=== PATIENT | male | born 1935 | race African-American/Black ===

== ENCOUNTER 2016-08-18 17:28 | Inpatient (IN) | payer MEDICARE, OTHER ==
[~2016-08-18] VITALS: Ht 175.3 cm; Wt 64.3 kg
[~2016-08-18 17:28] MED LIST: AMLO10TA2 PO; ASPI-110 PO; DULC10SU3 RECTAL; LEXA10TA PO; LORA-392 PO; MILK2400 PO; MULT1TAB84 PO; PRIN10TA PO; PROC10TA PO; QUET1TAB7 PO; ULTR50TA5 PO
[2016-08-18 17:40] VITALS: BP 175/93; PULSE 130; RESP 18; TEMP 102.8; O2SAT 95
[2016-08-18] MEDS ORDERED: SODIUM CHLORIDE 0.9% FLUSH 5 ML FLUSH IV FLUSH PRN (17:45)
[2016-08-18 18:13] VITALS: BP 175/93; PULSE 140; RESP 16; TEMP 102.3; O2SAT 97
[2016-08-18] MEDS ORDERED: ONDANSETRON HCL 4 MG/2 ML VIAL IV PUSH ONE (18:15)
[2016-08-18] MEDS ORDERED: ACETAMINOPHEN 650 MG SUPP RECTAL ONE (18:15)
[2016-08-18] MEDS ORDERED: SODIUM CHLOR 0.9% 1000 ML INJ 1,000 ML IV ONE ×2 (18:15→19:15)
[2016-08-18] MEDS ORDERED: PIPERACIL-TAZO 4.5 GM PREMIX 100 ML IV STA (18:33)
[2016-08-18] MEDS ORDERED: VANCOMYCIN INJ 1,000 MG in SODIUM CHLOR 0.9% 250 ML INJ 250 ML IV STA (18:33)
[2016-08-18 18:42] LABS: AUTOMATED NEUTROPHIL # 7.7 TH/MM3 (1.8-7.7); BASOPHIL % 0.2 % (0.0-2.0); EOSINOPHIL % 0.4 % (0.0-4.0); HEMO FLAGS DIFF FINAL; LYMPH % 14.4 % (9.0-44.0); LYMPHOCYTE # 1.3 TH/MM3 (1.0-4.8); MEAN CELL VOLUME 82.4 FL (80.0-100.0); MEAN CORPUSCULAR HEMOGLOBIN 26.5 PG (27.0-34.0); MEAN CORPUSCULAR HGB CONC 32.1 % (32.0-36.0); PLATELET COUNT 183 TH/MM3 (150-450); RED BLOOD COUNT 4.73 MIL/MM3 (4.50-5.90); RED CELL DISTRIBUTION WIDTH 14.9 % (11.6-17.2); WHITE BLOOD COUNT 9.2 TH/MM3 (4.0-11.0)
--- NOTE | 2016-08-18 18:47 | RADRPT ---
EXAM DATE/TIME: 08/18/2016 18:26 [facility] COMPARISON: No previous studies available for comparison. INDICATIONS : Syncope MEDICAL HISTORY : Hypertension. SURGICAL HISTORY : Appendectomy. ENCOUNTER: Initial ACUITY: 1 day PAIN SCORE: Non-responsive. LOCATION: Bilateral chest FINDINGS: There is left base consolidation and probably a newly small left effusion. Right lung reasonably jc r. No pneumothorax. Heart size stable, upper limits normal. CONCLUSION: Consolidation and effusion at the left lung base. Donta Argueta MD on August 18, 2016 at 18:44 Board Certified Radiologist. This report was verified electronically.
[2016-08-18 18:51] LABS: APTT (PATIENT) 23.3 SEC (24.3-30.1); INTERNATIONAL NORMALIZED RATIO 1.1 RATIO; PROTHROMBIN TIME - PATIENT 12.1 SEC (9.8-11.6)
[2016-08-18 19:04] LABS: ALT (GPT) 15 U/L (12-78); ANION GAP 10 MEQ/L (5-15); AST (GOT) 24 U/L (15-37); BICARBONATE 23.6 MEQ/L (21.0-32.0); BLOOD UREA NITROGEN 20 MG/DL (7-18); CHLORIDE 106 MEQ/L (98-107); GLOMERULAR FILTRATION RATE 56 ML/MIN (>89); SODIUM (NA) 140 MEQ/L (136-145)
[2016-08-18 19:08] LABS: ALKALINE PHOSPHATASE 96 U/L (45-117); CREATINE KINASE 273 U/L (39-308); TOTAL BILIRUBIN ADULT 0.7 MG/DL (0.2-1.0)
--- NOTE | 2016-08-18 19:13 | PD ---
HPI Chief Complaint: Fever Time Seen by Provider: 18:54 Travel History International Travel<30 days: No Contact w/Intl Traveler<30days: No Traveled to known affect area: No History of Present Illness HPI 81yo M with PMH of end stage dementia, CAD, depression was brought in by [facility] for a few episodes of NBNB vomiting. Pt was found to be febrile and tachycardic here in the ED. Pt is AAOx1 and at baseline mental status as per sister. Pt is pleasant and not complaining of anything but unable to get good history due to his dementia. PFSH Past Medical History Arthritis: Yes Asthma: No Anxiety: Yes Depression: Yes Heart Rhythm Problems: No Cardiovascular Problems: No High Cholesterol: No Chest Pain: No Congestive Heart Failure: No COPD: No Cerebrovascular Accident: No Dementia: Yes Gastrointestinal Disorders: Yes GERD: No Genitourinary: No Headaches: No Hepatitis: No Hiatal Hernia: No Hypertension: Yes Kidney Stones: No Musculoskeletal: Yes Neurologic: No Reproductive: No Respiratory: No Migraines: No Myocardial Infarction: No Renal Failure: No Seizures: No Sleep Apnea: No Ulcer: No Past Surgical History Abdominal Surgery: Yes (APPENDECTOMY) Appendectomy: Yes Cardiac Surgery: No Cholecystectomy: No Ear Surgery: No Endocrine Surgery: No Eye Surgery: No Genitourinary Surgery: No Gynecologic Surgery: No Oral Surgery: No Thoracic Surgery: No Other Surgery: Yes Social History Alcohol Use: No Tobacco Use: No Substance Use: No Allergies-Medications (Allergen,Severity, Reaction): Coded Allergies: No Known Allergies (Verified , 06/12/14) Reported Meds & Prescriptions Reported Meds & Active Scripts Active Reported Tramadol (Tramadol HCl) 50 Mg Tab 50 Mg PO BID Multiple Vitamin 1 Tab 1 Tab PO DAILY Nuedexta 20-10 mg (Dextromethorphan HBr-Quinidine) 1 Cap Cap 1 Cap PO BID Clonidine (Clonidine HCl) 0.1 Mg Tab 0.1 Mg PO BID PRN Quetiapine (Quetiapine Fumarate) 25 Mg Tab 25 Mg PO TID Prinivil (Lisinopril) 10 Mg Tab 10 Mg PO BID Dulcolax Supp (Bisacodyl) 10 Mg Supp 10 Mg RECTAL DAILY PRN Milk of Magnesia Concentrate Liq (Magnesium Hydroxide) 1,200 Mg/5 Ml Susp 30 Ml PO DAILY PRN Aspirin 81 (Aspirin) 81 Mg Tabdr 81 Mg PO DAILY Ativan (Lorazepam) 0.5 Mg Tab 0.5 Mg PO Q6H PRN Review of Systems ROS Limitations: Clinical Condition Physical Exam Narrative GENERAL: 81yo M not in distress. SKIN: Focused skin assessment warm/dry. HEAD: Atraumatic. Normocephalic. EYES: Pupils equal and round. No scleral icterus. No injection or drainage. ENT: No nasal bleeding or discharge. Mucous membranes pink and moist. NECK: Trachea midline. No JVD. CARDIOVASCULAR: Tachycardic in the 130s. No murmur appreciated. RESPIRATORY: No accessory muscle use. Clear to auscultation. Breath sounds equal bilaterally. GASTROINTESTINAL: Abdomen soft, non-tender, nondistended. No rebound tenderness or guarding. MUSCULOSKELETAL: No obvious deformities. No clubbing. No cyanosis. No edema. NEUROLOGICAL: Awake and alert. No obvious cranial nerve deficits. Motor grossly within normal limits. Normal speech. PSYCHIATRIC: Appropriate mood and affect; insight and judgment normal. Data Data Last Documented VS Vital Signs Date Time Temp Pulse Resp B/P Pulse Ox O2 Delivery O2 Flow Rate FiO2 08/18/16 18:13 97 Room Air 08/18/16 18:13 102.3 140 16 175/93 Orders Electrocardiogram (08/18/16 17:44) Ammonia (08/18/16 17:44) Complete Blood Count With Diff (08/18/16 17:44) Comprehensive Metabolic Panel (08/18/16 17:44) Creatine Kinase (Cpk) (08/18/16 17:44) Prothrombin Time / Inr (Pt) (08/18/16 17:44) Act Partial Throm Time (Ptt) (08/18/16 17:44) Troponin I (08/18/16 17:44) Urinalysis - C+S If Indicated (08/18/16 17:44) Lactic Acid Sepsis Protocol (08/18/16 17:44) Blood Culture (08/18/16 17:44) Chest, Single Ap (08/18/16 17:44) Blood Glucose (08/18/16 17:44) Ecg Monitoring (08/18/16 17:44) Iv Access Insert/Monitor (08/18/16 17:44) Oximetry (08/18/16 17:44) Sodium Chloride 0.9% Flush (Ns Flush) (08/18/16 17:45) Sodium Chlor 0.9% 1000 Ml Inj (Ns 1000 M (08/18/16 18:15) Ondansetron Inj (Zofran Inj) (08/18/16 18:15) Acetaminophen Supp (Tylenol Supp) (08/18/16 18:15) Vancomycin Inj (Vancomycin Inj) (08/18/16 18:33) Piperacil-Tazo 4.5 Gm Premix (Zosyn 4.5 (08/18/16 18:33) Urinary Catheter Insert/Apply (08/18/16 19:13) Sodium Chlor 0.9% 1000 Ml Inj (Ns 1000 M (08/18/16 19:15) Ct Brain W/O Iv Contrast(Rout) (08/18/16 ) Admit Order (Ed Use Only) (08/18/16 20:14) Labs Laboratory Tests Test 08/18/16 18:00 White Blood Count 9.2 TH/MM3 Red Blood Count 4.73 MIL/MM3 Hemoglobin 12.5 GM/DL Hematocrit 39.0 % Mean Corpuscular Volume 82.4 FL Mean Corpuscular Hemoglobin 26.5 PG Mean Corpuscular Hemoglobin 32.1 % Concent Red Cell Distribution Width 14.9 % Platelet Count 183 TH/MM3 Mean Platelet Volume 8.4 FL Neutrophils (%) (Auto) 84.0 % Lymphocytes (%) (Auto) 14.4 % Monocytes (%) (Auto) 1.0 % Eosinophils (%) (Auto) 0.4 % Basophils (%) (Auto) 0.2 % Neutrophils # (Auto) 7.7 TH/MM3 Lymphocytes # (Auto) 1.3 TH/MM3 Monocytes # (Auto) 0.1 TH/MM3 Eosinophils # (Auto) 0.0 TH/MM3 Basophils # (Auto) 0.0 TH/MM3 CBC Comment DIFF FINAL Differential Comment Prothrombin Time 12.1 SEC Prothromb Time International 1.1 RATIO Ratio Activated Partial 23.3 SEC Thromboplast Time Sodium Level 140 MEQ/L Potassium Level 4.0 MEQ/L Chloride Level 106 MEQ/L Carbon Dioxide Level 23.6 MEQ/L Anion Gap 10 MEQ/L Blood Urea Nitrogen 20 MG/DL Creatinine 1.47 MG/DL Estimat Glomerular Filtration 56 ML/MIN Rate Random Glucose 74 MG/DL Lactic Acid Level 2.9 mmol/L Calcium Level 8.9 MG/DL Total Bilirubin 0.7 MG/DL Aspartate Amino Transf 24 U/L (AST/SGOT) Alanine Aminotransferase 15 U/L (ALT/SGPT) Alkaline Phosphatase 96 U/L Ammonia 34 MCMOL/L Total Creatine Kinase 273 U/L Troponin I 0.03 NG/ML Total Protein 7.8 GM/DL Albumin 3.7 GM/DL MDM Medical Decision Making Medical Screen Exam Complete: Yes Emergency Medical Condition: Yes Interpretation(s) EKG: Sinus tachycardia at 155bpm. LAD. Differential Diagnosis Sepsis secondary to UTI vs. Pneumonia vs. intraabdominal pathology Narrative Course 81yo M with fever and tachycardia. Pt is at baseline mental status. Sepsis protocol was started by previous team. When I went to evaluate the patient, he was just getting his first liter of NS IVF started and he was sinus tachycardia in the 130s. Labs reviewed, no leukocytosis. BUN/creatinine elevated but at baseline. Lactic acid elevated at 2.9. Pt empirically given vancomycin and zosyn. CXR showed left lower lobe pneumonia. CT brain negative. UA showed large leukocyte. Pt already covered with vanco, zosyn. Pt reevaluated at bedside and HR is now in the 120s. Discussed with Dr. Martin and accepted to her service. Critical Care Narrative Aggregate critical care time was 45 minutes. Time to perform other separately billable procedures was not included in the critical care time. My time did not include minutes spent treating any other patients simultaneously or on activities that did not directly contribute to the patient's treatment. The services I provided to this patient were to treat and/or prevent clinically significant deterioration that could result in: cardiovascular collapse or . I provided critical care services requiring my management, as noted below: Chart data review, documentation time, medication orders and management, vital sign assessments/reviewing monitor data, ordering and reviewing lab tests, ordering and interpreting/reviewing x-rays and diagnostic studies, care of the patient and discussion of the patient with the admitting physicians. Diagnosis Primary Impression: Sepsis Qualified Code: A41.9 - Sepsis, due to unspecified organism Admitting Information Admitting Physician Requests: Admit Estrella Lerma DO August 18, 2016 19:13
[2016-08-18] MEDS ORDERED: CLON0.1T PO (19:27)
[2016-08-18] MEDS ORDERED: MULTTAB67 PO (19:44)
[2016-08-18] MEDS ORDERED: NUED20CA PO (19:44)
[2016-08-18] MEDS ORDERED: TRAM50TA PO (19:44)
--- NOTE | 2016-08-18 20:07 | RADRPT ---
EXAM DATE/TIME: 08/18/2016 19:33 [facility] COMPARISON: CT BRAIN W/O CONTRAST, February 13, 2016, 19:10. INDICATIONS : Altered mental status. RADIATION DOSE: 42.64 CTDIvol (mGy) MEDICAL HISTORY : Hypertension. Dementia. SURGICAL HISTORY : None. ENCOUNTER: Initial ACUITY: 1 day PAIN SCALE: Non-responsive LOCATION: cranial TECHNIQUE: Multiple contiguous axial images were obtained of the head. Using automated exposure control and adj ustment of the mA and/or kV according to patient size, radiation dose was kept as low as reasonably a chievable to obtain optimal diagnostic quality images. FINDINGS: CEREBRUM: The ventricles are normal for age. No evidence of midline shift, mass lesion, hemorrhage or acute in farction. No extra-axial fluid collections are seen. Chronic low attenuation again seen in the periv entricular white matter. POSTERIOR FOSSA: The cerebellum and brainstem are intact. The 4th ventricle is midline. The cerebellopontine angle i s unremarkable. EXTRACRANIAL: There is mucoperiosteal thickening of the visualized sinuses, mainly ethmoid air cells. SKULL: The calvaria is intact. No evidence of skull fracture. CONCLUSION: 1. No acute intracranial abnormality. 2. Chronic white matter changes. 3. Mild sinus disease. Donta Argueta MD on August 18, 2016 at 20:05 Board Certified Radiologist. This report was verified electronically.
[2016-08-18] MEDS ORDERED: NALOXONE HCL 0.4 MG/ML AMP IV PRN (20:15)
[2016-08-18] MEDS ORDERED: SODIUM CHLORIDE 0.9% FLUSH 10 ML FLUSH IV FLUSH PRN (20:15)
[2016-08-18 20:27] LABS: LACTIC ACID GHOST NOT REPORTABLE
[2016-08-18 20:28] VITALS: BP 168/107; PULSE 123; RESP 18; O2SAT 96
[2016-08-18 20:44] LABS: BACTERIA, URINE FEW /hpf; BLOOD, URINE MOD (NEG); COMMENT (UR) CATH-CULTURE IND; CULTURE IF INDICATED CATH CULTURE IND; GLUCOSE,URINE NEG (NEG); HYALINE CAST, URINE 1 /lpf (RARE); KETONE, URINE NEG (NEG); NITRITE,URINE NEG (NEG); PH, URINE 7.5 (5.0-8.5); URINE COLOR LIGHT-YELLOW (YELLW/STRAW)
[2016-08-18] MEDS: SODIUM CHLORIDE 0.9% FLUSH 10 ML FLUSH IV FLUSH SCH (21:00)
--- NOTE | 2016-08-18 21:23 | HHI.HP ---
[facility] Sandro Chaidez MD Admission Diagnosis Sepsis secondary to pneumonia Diagnoses: Chief Complaint: Sent from SNF for fever and vomitting Travel History International Travel<30 Days: No Contact w/Intl Traveler <30 Da: No Traveled to Known Affected Are: No Sepsis Criteria SIRS Criteria (2 or more): Temp > 100.9 or < 96.8, Heart rate over 90 Sepsis Criteria (SIRS+source): Infect source susp/known History of Present Illness Written by Isabel Lynn, acting as scribe for Dr. Martin on 08/18/16 at 21: 53. Patient is an 81 year old male patient with a past medical history which includes: Pseudo-bulbar affective disorder, schizophrenia, dementia, CAD. Is unable to provide meaningful information therefore information gathered from patient as well as prior documentation and review of half-way facility documentation. Appears that patient was sent from half-way facility due to concerns of vomiting and fever. Patient reports, "I'm fine," and offers no complaints at this time. Patient is a poor historian denies chest pain shortness of breath nausea vomiting diarrhea constipation fevers or chills. Patient walks spontaneously during review of systems. She arrived to the emergency department temperature is 102.8 heart rate of 1:30 sinus tachycardia, blood pressure 175/93 pulse oximetry 95% on room air Chest x-ray reviewed and reveals: Consolidation and effusion at the left lung base White blood cell count 9.2 with 84% neutrophils lactic acid 2.9 BUN 20 creatinine 1.47 estimated GFR 56 with ammonia 34 Review of Systems ROS Limitations: Clinical Condition, Poor Historian Past Family Social History Past Medical History Pseudobulbar affective disorder, schizophrenia, dementia, CAD Past Surgical History Appendectomy Reported Medications Tramadol (Tramadol HCl) 50 Mg Tab 50 Mg PO BID Multiple Vitamin 1 Tab 1 Tab PO DAILY Nuedexta 20-10 mg (Dextromethorphan HBr-Quinidine) 1 Cap Cap 1 Cap PO BID Clonidine (Clonidine HCl) 0.1 Mg Tab 0.1 Mg PO BID PRN Quetiapine (Quetiapine Fumarate) 25 Mg Tab 25 Mg PO TID Prinivil (Lisinopril) 10 Mg Tab 10 Mg PO BID Dulcolax Supp (Bisacodyl) 10 Mg Supp 10 Mg RECTAL DAILY PRN Milk of Magnesia Concentrate Liq (Magnesium Hydroxide) 1,200 Mg/5 Ml Susp 30 Ml PO DAILY PRN Aspirin 81 (Aspirin) 81 Mg Tabdr 81 Mg PO DAILY Ativan (Lorazepam) 0.5 Mg Tab 0.5 Mg PO Q6H PRN Allergies: Coded Allergies: No Known Allergies (Verified , 06/12/14) Active Ordered Medications Current Medications Medications (Trade) Dose Ordered Sig/Nicole Route Start Time Stop Time Status Last Admin (NS Flush) 2 ml UNSCH PRN IV FLUSH 08/18/16 20:15 (NS Flush) 2 ml BID IV FLUSH 08/18/16 21:00 (Narcan Inj) 0.4 mg UNSCH PRN IV 08/18/16 20:15 (Ecotrin Ec) 81 mg DAILY PO 08/19/16 09:00 UNV (Dulcolax Supp) 10 mg DAILY PRN RECTAL 08/18/16 21:45 UNV (Prinivil) 10 mg BID PO 08/19/16 09:00 UNV (Ativan) 0.5 mg Q6H PRN PO 08/18/16 21:45 UNV (SEROquel) 25 mg TID PO 08/19/16 09:00 UNV (Ultram) 50 mg BID PO 08/19/16 09:00 UNV Non-Formulary Medication 1 cap BID PO 08/19/16 09:00 UNV Non-Formulary Medication 1 tab DAILY PO 08/19/16 09:00 UNV Family History Unable to obtain at this time secondary to patient's mental status Social History Patient lives in half-way facility No report of EtOH use tobacco use or illicit drug use at this time Physical Exam Vital Signs Vital Signs Date Time Temp Pulse Resp B/P Pulse Ox O2 Delivery O2 Flow Rate FiO2 08/18/16 20:28 123 18 168/107 96 Room Air 08/18/16 18:13 97 Room Air 08/18/16 18:13 97 Room Air 08/18/16 18:13 102.3 140 16 175/93 97 Room Air 08/18/16 17:40 102.8 130 18 175/93 95 Physical Exam GENERAL: This is a well-nourished, well-developed patient, confused unable to provide meaningful information SKIN: No rashes, ecchymoses or lesions. Cool and dry. HEAD: Atraumatic. Normocephalic. No temporal or scalp tenderness. EYES: Extraocular motions intact. No scleral icterus. No injection or drainage. Enucleated right eye CARDIOVASCULAR: Tachycardic without murmurs, gallops, or rubs. RESPIRATORY: Clear to auscultation. Poor inspiratory effort GASTROINTESTINAL: Abdomen soft, non-tender, nondistended. MUSCULOSKELETAL: Extremities without clubbing, cyanosis, or edema. No joint tenderness, effusion, or edema noted. No calf tenderness. Negative Homans sign bilaterally. Generalized muscle atrophy NEUROLOGICAL: Awake and alert. Oriented to person only no focal deficits appreciated. Motor and sensory grossly within normal limits. 3 out of 5 muscle strength in all muscle groups. Normal speech. Laboratory Laboratory Tests Test 08/18/16 08/18/16 18:00 20:24 White Blood Count 9.2 Red Blood Count 4.73 Hemoglobin 12.5 Hematocrit 39.0 Mean Corpuscular Volume 82.4 Mean Corpuscular Hemoglobin 26.5 Mean Corpuscular Hemoglobin 32.1 Concent Red Cell Distribution Width 14.9 Platelet Count 183 Mean Platelet Volume 8.4 Neutrophils (%) (Auto) 84.0 Lymphocytes (%) (Auto) 14.4 Monocytes (%) (Auto) 1.0 Eosinophils (%) (Auto) 0.4 Basophils (%) (Auto) 0.2 Neutrophils # (Auto) 7.7 Lymphocytes # (Auto) 1.3 Monocytes # (Auto) 0.1 Eosinophils # (Auto) 0.0 Basophils # (Auto) 0.0 CBC Comment DIFF FINAL Differential Comment Prothrombin Time 12.1 Prothromb Time International 1.1 Ratio Activated Partial 23.3 Thromboplast Time Sodium Level 140 Potassium Level 4.0 Chloride Level 106 Carbon Dioxide Level 23.6 Anion Gap 10 Blood Urea Nitrogen 20 Creatinine 1.47 Estimat Glomerular Filtration 56 Rate Random Glucose 74 Lactic Acid Level 2.9 Calcium Level 8.9 Total Bilirubin 0.7 Aspartate Amino Transf 24 (AST/SGOT) Alanine Aminotransferase 15 (ALT/SGPT) Alkaline Phosphatase 96 Ammonia 34 Total Creatine Kinase 273 Troponin I 0.03 Total Protein 7.8 Albumin 3.7 Urine Color LIGHT-YELLOW Urine Turbidity CLEAR Urine pH 7.5 Urine Specific [place] 1.004 Urine Protein NEG Urine Glucose (UA) NEG Urine Ketones NEG Urine Occult Blood MOD Urine Nitrite NEG Urine Bilirubin NEG Urine Urobilinogen LESS THAN 2.0 Urine Leukocyte Esterase LARGE Urine RBC 19 Urine WBC 10 Urine Amorphous Sediment RARE Urine Bacteria FEW Urine Hyaline Casts 1 Microscopic Urinalysis Comment CATH-CULTURE IND Date/Time Procedure Status Source Growth 08/18/16 20:24 Urine Culture Received Urine Catheterized Urine Pending 08/18/16 18:15 Aerobic Blood Culture Received Blood Peripheral Pending 08/18/16 18:15 Anaerobic Blood Culture Received Blood Peripheral Pending Result Diagram: 08/18/16 1800 08/18/16 1800 Imaging Last Impressions Chest X-Ray 08/18/16 1744 Signed Impressions: Service Date/Time: July 18:26 - CONCLUSION: Consolidation and effusion at the left lung base. Donta Argueta MD Head CT 08/18/16 0000 Signed Impressions: Service Date/Time: July 19:33 - CONCLUSION: 1. No acute intracranial abnormality. 2. Chronic white matter changes. 3. Mild sinus disease. Donta Argueta MD Septic Shock Reassessment Heart: Other (tachycardic) Lungs: Clear (poor inspiratory effort) Skin: Warm, Dry Peripheral Pulses: Weak Right Dorsalis Pedis Weak Left Dorsalis Pedis Bounding Right Radial Bounding Left Radial Capillary Refill: Brisk Assessment and Plan Problem List: (1) Sepsis ICD Code: A41.9 Status: Acute (2) UTI (urinary tract infection) ICD Code: N39.0 Status: Acute (3) LLL pneumonia ICD Code: J18.1 Status: Acute Assessment and Plan Patient is an 81 year old male patient with a past medical history which includes: Pseudo-bulbar affective disorder, schizophrenia, dementia, CAD. Is unable to provide meaningful information therefore information gathered from patient as well as prior documentation and review of half-way facility documentation. Appears that patient was sent from half-way facility due to concerns of vomiting and fever. Patient reports, "I'm fine," and offers no complaints at this time. Sepsis by criteria (temperature 102.8 heart rate 130, lactic acid 2.9 suspected source left lower lobe pneumonia and UTI) with lactic acidosis Left lower lobe pneumonia Possible urinary tract infection culture pending Chest x-ray reviewed and reveals consolidation and effusion at the left lung base CT of the head reviewed and reveals no acute intracranial abnormalities. Chronic white matter changes. Mild sinusitis Received 2 L normal saline bolus while in the emergency department Continue Zosyn and vancomycin Blood cultures obtained and pending Urine culture pending Continue close monitoring and supportive care Chronic kidney disease Avoid nephrotoxic agents Monitor renal function Other stable chronic medical conditions included Pseudo-bulbar affective disorder, schizophrenia, dementia, CAD continue home medications as indicated Discussed with ER provider, nursing and patient This note was transcribed by [email or web address] [Florencia Lynn]. I, Dr. Oleg Martin personally performed the history, physical exam, and medical decision making; and confirmed the accuracy of the information in the transcribed note. Authenticated by Dr. Oleg Martin on 08/18/16 at 21:53. Physician Certification 2 Midnight Certification Type: Admission for Inpatient Services Order for Inpatient Services The services are ordered in accordance with Medicare regulations or non- Medicare payer requirements, as applicable. In the case of services not specified as inpatient-only, they are appropriately provided as inpatient services in accordance with the 2-midnight benchmark. Estimated LOS (days): 4 days is the estimated time the patient will need to remain in the hospital, assuming treatment plan goals are met and no additional complications. Post-Hospital Plan: SNF Problem Qualifiers (1) Sepsis: Qualified Code: A41.9 - Sepsis, due to unspecified organism Isabel Lynn August 18, 2016 21:23 Oleg Martin MD August 19, 2016 08:13
[2016-08-18] MEDS ORDERED: Vancomycin Consult Pharmacy 1 EA OTHER SCH (21:45)
[2016-08-18] MEDS ORDERED: BISACODYL 10 MG SUPP RECTAL PRN (21:45)
[2016-08-18] MEDS ORDERED: LORazepam 0.5 MG TAB PO PRN (21:45)
[2016-08-18 22:15] VITALS: BP 142/66; PULSE 76; RESP 19; TEMP 98.1; O2SAT 96
[2016-08-18 23:02] VITALS: PULSE 110
[2016-08-19] VITALS (7 sets, daily range): BP systolic 117–149; BP diastolic 76–100; PULSE 69–113; RESP 16–21; TEMP 97.3–99.5; O2SAT 96–98
[2016-08-19] MEDS: PIPERACIL-TAZO 4.5 GM PREMIX 100 ML IV SCH ×5 (00:35→23:59)
[2016-08-19] MEDS ORDERED: NUEDEXTA PO SCH (09:00)
[2016-08-19 09:54] LABS: BASOPHIL # 0.1 TH/MM3 (0-0.2); BASOPHIL % 0.4 % (0.0-2.0); EOSINOPHIL % 0.2 % (0.0-4.0); HEMATOCRIT 37.6 % (39.0-51.0); HEMO FLAGS DIFF FINAL; LYMPH % 7.8 % (9.0-44.0); LYMPHOCYTE # 1.4 TH/MM3 (1.0-4.8); MEAN CELL VOLUME 82.8 FL (80.0-100.0); MEAN CORPUSCULAR HEMOGLOBIN 26.4 PG (27.0-34.0); MEAN CORPUSCULAR HGB CONC 31.9 % (32.0-36.0); MONO % 4.9 % (0.0-8.0); NEUT % 86.7 % (16.0-70.0); PLATELET COUNT 160 TH/MM3 (150-450); RED BLOOD COUNT 4.54 MIL/MM3 (4.50-5.90); RED CELL DISTRIBUTION WIDTH 15.2 % (11.6-17.2); WHITE BLOOD COUNT 17.3 TH/MM3 (4.0-11.0)
[2016-08-19] MEDS: LISINOPRIL 10 MG TAB PO SCH ×2 (09:58→22:41)
[2016-08-19] MEDS: ASPIRIN EC 81 MG TABEC PO SCH (09:58)
[2016-08-19] MEDS: QUEtiapine FUMARATE 25 MG TAB PO SCH ×3 (09:59→17:06)
[2016-08-19] MEDS: traMADol HCL 50 MG TAB PO SCH ×2 (09:59→22:41)
[2016-08-19] MEDS: MULTIVITAMIN TAB PO SCH (10:03)
[2016-08-19 10:19] LABS: BICARBONATE 26.7 MEQ/L (21.0-32.0)
[2016-08-19] MEDS: VANCOMYCIN INJ 1,500 MG in SODIUM CHLORID 0.9% 500 ML INJ 500 ML IV SCH (11:03)
--- NOTE | 2016-08-19 14:33 | RADRPT ---
EXAM DATE/TIME: 08/19/2016 13:38 [facility] COMPARISON: No previous studies available for comparison. INDICATIONS : Abnormal labs. MEDICAL HISTORY : Dementia. Arthritis. Depression. Anxiety. Pseudo-bulbar affective disorder. Schizaphrenia. CAD.Vomiti ng. Febrile. Tachycardic. SURGICAL HISTORY : Appendectomy. ENCOUNTER: Initial ACUITY: 1 day PAIN SCORE: 0/10 LOCATION: Bilateral flank MEASUREMENTS: RIGHT KIDNEY: 8.4 x 4.2 x 5.4 cm LEFT KIDNEY: 9.6 x 4.9 x 5.5 cm FINDINGS: Right kidney is echogenic and slightly diminished in size relative to left kidney. No hydronephrosis. No focal renal mass. Bladder unremarkable. CONCLUSION: 1. Mild medical renal disease. No hydronephrosis. Bladder unremarkable. Garfield Sánchez MD on August 19, 2016 at 14:27 Board Certified Radiologist. This report was verified electronically.
--- NOTE | 2016-08-19 14:52 | HHI.PR ---
Subjective Remarks Patient had a fever yesterday with a T max of 102.3 Patient is confused creatinine trending up denies cp/sob denies abdominal pain Objective Vitals Vital Signs Date Time Temp Pulse Resp B/P Pulse Ox O2 Delivery O2 Flow Rate FiO2 08/19/16 12:00 97.6 81 18 117/77 98 08/19/16 08:00 98.2 81 18 130/84 97 08/19/16 04:00 97.4 110 16 149/100 96 08/19/16 00:00 99.5 113 17 143/85 97 08/18/16 23:02 110 08/18/16 22:15 98.1 76 19 142/66 96 08/18/16 20:28 123 18 168/107 96 Room Air 08/18/16 18:13 97 Room Air 08/18/16 18:13 97 Room Air 08/18/16 18:13 102.3 140 16 175/93 97 Room Air 08/18/16 17:40 102.8 130 18 175/93 95 I/O 08/18/16 08/18/16 08/18/16 08/19/16 08/19/16 08/19/16 07:00 15:00 23:00 07:00 15:00 23:00 Intake Total 60 ml Balance 60 ml Intake Oral 60 ml # Voids 2 Result Diagram: 08/19/16 0847 08/19/16 0847 Imaging Last Impressions Chest X-Ray 08/18/16 1744 Signed Impressions: Service Date/Time: July 18:26 - CONCLUSION: Consolidation and effusion at the left lung base. Donta Argueta MD Head CT 08/18/16 0000 Signed Impressions: Service Date/Time: July 19:33 - CONCLUSION: 1. No acute intracranial abnormality. 2. Chronic white matter changes. 3. Mild sinus disease. Donta Argueta MD Reviewed by me Objective Remarks GENERAL: This is a well-nourished, well-developed patient, confused unable to provide meaningful information SKIN: No rashes, ecchymoses or lesions. Cool and dry. HEAD: Atraumatic. Normocephalic. No temporal or scalp tenderness. EYES: Extraocular motions intact. No scleral icterus. No injection or drainage. Enucleated right eye CARDIOVASCULAR: Tachycardic without murmurs, gallops, or rubs. RESPIRATORY: Clear to auscultation. Poor inspiratory effort GASTROINTESTINAL: Abdomen soft, non-tender, nondistended. MUSCULOSKELETAL: Extremities without clubbing, cyanosis, or edema. No joint tenderness, effusion, or edema noted. No calf tenderness. Negative Homans sign bilaterally. Generalized muscle atrophy NEUROLOGICAL: Awake and alert. Oriented to person only no focal deficits appreciated. Motor and sensory grossly within normal limits. 3 out of 5 muscle strength in all muscle groups. Normal speech. Procedures none Medications and IVs Current Medications Medications (Trade) Dose Ordered Sig/Nicole Route Start Time Stop Time Status Last Admin (NS Flush) 2 ml UNSCH PRN IV FLUSH 08/18/16 20:15 (NS Flush) 2 ml BID IV FLUSH 08/18/16 21:00 08/19/16 17:10 (Narcan Inj) 0.4 mg UNSCH PRN IV 08/18/16 20:15 (Ecotrin Ec) 81 mg DAILY PO 08/19/16 09:00 08/19/16 09:58 (Dulcolax Supp) 10 mg DAILY PRN RECTAL 08/18/16 21:45 (Prinivil) 10 mg BID PO 08/19/16 09:00 08/19/16 09:58 (Ativan) 0.5 mg Q6H PRN PO 08/18/16 21:45 (SEROquel) 25 mg TID PO 08/19/16 09:00 08/19/16 17:06 (Ultram) 50 mg BID PO 08/19/16 09:00 08/19/16 09:59 Patient Own Medication PT OWN MED: NUEDE... BID PO 08/19/16 09:00 Multivitamins 1 tab 1 tab DAILY PO 08/19/16 09:00 08/19/16 10:03 Pharmacy Profile Note 0 ml @ 0 mls/hr UNSCH OTHER 08/18/16 21:45 Piperacillin Sod/ Tazobactam Sod 100 ml @ 200 mls/hr Q6H IV 08/19/16 00:00 08/19/16 17:06 (Vancomycin Inj/ NS 500 ml Inj) 515 ml @ 250 mls/hr Q24H IV 08/19/16 11:00 08/19/16 11:03 Miscellaneous Information SPECIFIC LAB TO BE DRAWN:VANCO TROUGH DATE TO BE . ONCE ONCE .XX 08/21/16 10:45 08/21/16 10:46 (NS 1000 ml Inj) 1,000 ml @ 84 mls/hr [id number] IV 08/19/16 14:00 08/19/16 17:06 Urinary Catheter: No Vascular Central Line Catheter: No A/P Problem List: (1) Sepsis ICD Code: A41.9 Status: Acute Plan: Present on admission. Poss aspiration since patient had nausea and vomiting in SNF vs [facility] Continue IV antibiotics - Iv Vancomycin and Iv Zosyn Blood cultures - (+) gram-positive cocci - consult infectious disease. Continue to follow up blood cultures (2) UTI (urinary tract infection) ICD Code: N39.0 Status: Acute Plan: Follow-up urine cultures. (3) LLL pneumonia ICD Code: J18.1 Status: Acute Plan: As shown on chest x-ray above. (4) MARCIA (acute kidney injury) ICD Code: N17.9 Status: Acute Plan: History of present illness on possible CKD stage III with baseline creatinine of 1.3 upon review of records. Will insert a Lea catheter for accurate measure of output Check renal ultrasound Multiple place on IV normal saline. Continue to monitor BUN/creatinine and avoid nephrotoxins. (5) Dementia ICD Code: F03.90 Status: Chronic Plan: Seems stable. Continue home medications. Assessment and Plan DVT prophylaxis: We'll place on Lovenox subcutaneous. Discharge Planning Continue to monitor in the medical floor. Problem Qualifiers (1) Sepsis: Qualified Code: A41.9 - Sepsis, due to unspecified organism (2) UTI (urinary tract infection): Qualified Code: N30.00 - Acute cystitis without hematuria (3) LLL pneumonia: Qualified Code: J69.0 - Aspiration pneumonia of left lower lobe due to gastric secretions (4) Dementia: Qualified Code: F03.90 - Dementia without behavioral disturbance, unspecified dementia type Satinder Beebe MD August 19, 2016 14:52
--- NOTE | 2016-08-19 16:17 | PD.CONS ---
History of Present Illness Service Infectious disease Consult Requested By Dr Recio Reason for Consult Evaluate patient with sepsis, has pneumonia and positive blood cultures Primary Care Physician Sandro Chaidez MD Diagnoses: History of Present Illness Patient seen and examined. Records reviewed. Patient is a very poor historian. Patient is a 81-year-old male, [facility], brought into the hospital for evaluation of vomiting. In the emergency room he was found to be febrile. Patient really offers no complaints. At the time my exam I did not observe any episodes of coughing, and he did not sound congested at all. His WBC is elevated. His chest x-ray on admission showed left base consolidation. He was tachycardic, and his blood pressure is elevated. He has good saturation on room air. 2 blood cultures done on admission are now reported as growing gram-positive cocci. Infectious disease consultation has been requested to evaluate the patient. Review of Systems ROS Limitations: Clinical Condition, Altered Mental Status Past Family Social History Allergies: Coded Allergies: No Known Allergies (Verified , 06/12/14) Past Medical History Pseudobulbar affective disorder Schizophrenia Dementia CAD Past Surgical History Appendectomy Active Ordered Medications Aspirin Dulcolax Prinivil Ativan MVI Nuedexta Zosyn Seroquel Ultram Vancomycin Social History No mention of smoking Alcohol abuse No substance abuse Physical Exam Vital Signs Vital Signs Date Time Temp Pulse Resp B/P Pulse Ox O2 Delivery O2 Flow Rate FiO2 08/19/16 12:00 97.6 81 18 117/77 98 08/19/16 08:00 98.2 81 18 130/84 97 08/19/16 04:00 97.4 110 16 149/100 96 08/19/16 00:00 99.5 113 17 143/85 97 08/18/16 23:02 110 08/18/16 22:15 98.1 76 19 142/66 96 08/18/16 20:28 123 18 168/107 96 Room Air 08/18/16 18:13 97 Room Air 08/18/16 18:13 97 Room Air 08/18/16 18:13 102.3 140 16 175/93 97 Room Air 08/18/16 17:40 102.8 130 18 175/93 95 Physical Exam GENERAL: Patient is a well-nourished, well-developed male, awake and alert, not in respiratory distress. SKIN: Warm and dry. No generalized rash, no ecchymoses and no evidence of embolic lesions. HEAD: Atraumatic. Normocephalic. No temporal wasting, or tenderness. EYES: [place] conjunctiva. No petechia or hemorrhage. Pupils equal, round and reactive to light. Extraocular movements full and intact. No scleral icterus. No injection or drainage. EARS, NOSE AND THROAT: Nose without bleeding or purulent nasal discharge. No sinus tenderness. Mucous membranes pink and moist. No oral lesions noted. No exudate. No oral thrush. NECK: Trachea midline. Supple and not tender, no meningeal signs CARDIOVASCULAR: Regular rate and rhythm. No murmurs, rubs or gallops heard RESPIRATORY: Clear to auscultation. Breath sounds equal bilaterally. No rales , wheezing or rhonchi. Decreased BS at bases ABDOMEN: Soft, non-tender, nondistended. Bowel sounds present and normoactive. No guarding. No rebound. No organomegaly. EXTREMITIES: No clubbing, cyanosis, or edema. Has contractures of BLE. No joint effusion. No calf tenderness. Well perfused and warm. NEUROLOGICAL: Awake and alert. Cranial nerves grossly intact. Good hand digital computer operator, equal PSYCHIATRIC: Normal affect, calm and cooperative. LINE: No evidence of infection Laboratory Laboratory Tests Test 08/18/16 08/18/16 08/18/16 08/19/16 18:00 20:24 23:55 08:47 White Blood Count 9.2 17.3 Red Blood Count 4.73 4.54 Hemoglobin 12.5 12.0 Hematocrit 39.0 37.6 Mean Corpuscular Volume 82.4 82.8 Mean Corpuscular Hemoglobin 26.5 26.4 Mean Corpuscular Hemoglobin 32.1 31.9 Concent Red Cell Distribution Width 14.9 15.2 Platelet Count 183 160 Mean Platelet Volume 8.4 8.7 Neutrophils (%) (Auto) 84.0 86.7 Lymphocytes (%) (Auto) 14.4 7.8 Monocytes (%) (Auto) 1.0 4.9 Eosinophils (%) (Auto) 0.4 0.2 Basophils (%) (Auto) 0.2 0.4 Neutrophils # (Auto) 7.7 15.0 Lymphocytes # (Auto) 1.3 1.4 Monocytes # (Auto) 0.1 0.8 Eosinophils # (Auto) 0.0 0.0 Basophils # (Auto) 0.0 0.1 CBC Comment DIFF FINAL DIFF FINAL Differential Comment Prothrombin Time 12.1 Prothromb Time International 1.1 Ratio Activated Partial 23.3 Thromboplast Time Sodium Level 140 142 Potassium Level 4.0 4.0 Chloride Level 106 107 Carbon Dioxide Level 23.6 26.7 Anion Gap 10 8 Blood Urea Nitrogen 20 20 Creatinine 1.47 1.64 Estimat Glomerular Filtration 56 49 Rate Random Glucose 74 76 Lactic Acid Level 2.9 1.7 Calcium Level 8.9 8.8 Total Bilirubin 0.7 Aspartate Amino Transf 24 (AST/SGOT) Alanine Aminotransferase 15 (ALT/SGPT) Alkaline Phosphatase 96 Ammonia 34 Total Creatine Kinase 273 Troponin I 0.03 Total Protein 7.8 Albumin 3.7 Urine Color LIGHT-YELLOW Urine Turbidity CLEAR Urine pH 7.5 Urine Specific [facility] 1.004 Urine Protein NEG Urine Glucose (UA) NEG Urine Ketones NEG Urine Occult Blood MOD Urine Nitrite NEG Urine Bilirubin NEG Urine Urobilinogen LESS THAN 2.0 Urine Leukocyte Esterase LARGE Urine RBC 19 Urine WBC 10 Urine Amorphous Sediment RARE Urine Bacteria FEW Urine Hyaline Casts 1 Microscopic Urinalysis Comment CATH-CULTURE IND Date/Time Procedure Status Source Growth 08/18/16 20:24 Urine Culture - Preliminary Resulted Urine Catheterized Urine IMMATURE GROWTH - REINCUBATE 08/18/16 18:15 Aerobic Blood Culture - Preliminary Resulted Blood Peripheral NO GROWTH IN 1 DAY 08/18/16 18:15 Anaerobic Blood Culture - Preliminary Resulted Gram Positive Cocci Result Diagram: 08/19/16 0847 08/19/16 0847 Imaging RADIOLOGY STUDIES/FILMS REVIEWED Renal Ultrasound 08/19/16 0000 Signed Impressions: Service Date/Time: Friday, August 19, 2016 13:38 - CONCLUSION: 1. Mild medical renal disease. No hydronephrosis. Bladder unremarkable. Garfield Sánchez MD Chest X-Ray 08/18/16 0331 Signed Impressions: Service Date/Time: July 18:26 - CONCLUSION: Consolidation and effusion at the left lung base. Donta Argueta MD Head CT 08/18/16 0000 Signed Impressions: Service Date/Time: July 19:33 - CONCLUSION: 1. No acute intracranial abnormality. 2. Chronic white matter changes. 3. Mild sinus disease. Donta Argueta MD Assessment and Plan Assessment and Plan IMPRESSION Sepsis on presentation - has (+) BC with GPC - source: Has L base consolidation, ?aspiration, had N/V in SNF - mild pyuria on UA, no garcia Dementia Renal insufficiency RECOMMENDATION Repeat 2 BC today Continue vanco and Zosyn Follow C/S Echo Follow temps Monitor progress Will determine course of Abx once work-up is completed Thank you for this consultation Dr Tomas covering for nm 08/20-08/22 Megan Moya MD August 19, 2016 16:17
--- NOTE | 2016-08-19 16:37 | EKG ---
Date Performed: 08/18/2016 Time Performed: 18:01:05 PTAGE: 81 years EKG: SINUS TACHYCARDIA WITH SHORT MD INTERVAL, POSSIBLE ATRIAL FLUTTER MARKED LEFT AXIS DEVIATIO N MODERATE ST DEPRESSION Can not rule out old inferior infarction. When compared to previous tracing, possibleatrial flutter has Replaced Sinus rhythm . ABNORMAL ECG PREVIOUS TRACING : 02/13/2016 20.18 DOCTOR: Raheem Rashid Interpretating Date/Time 08/23/2016 10:34:27
[2016-08-19] MEDS: SODIUM CHLOR 0.9% 1000 ML INJ 1,000 ML IV SCH (17:06)
[2016-08-19] MEDS: SODIUM CHLORIDE 0.9% FLUSH 10 ML FLUSH IV FLUSH SCH ×2 (17:10→21:00)
[2016-08-20] VITALS (7 sets, daily range): BP systolic 130–163; BP diastolic 80–97; PULSE 70–85; RESP 17–23; TEMP 96.3–98.8; O2SAT 95–98
[2016-08-20] MEDS: PIPERACIL-TAZO 4.5 GM PREMIX 100 ML IV SCH ×4 (05:14→23:06)
[2016-08-20] MEDS: SODIUM CHLOR 0.9% 1000 ML INJ 1,000 ML IV SCH ×3 (06:35→23:10)
[2016-08-20] MEDS: SODIUM CHLORIDE 0.9% FLUSH 10 ML FLUSH IV FLUSH SCH ×2 (09:00→21:20)
[2016-08-20] MEDS: ASPIRIN EC 81 MG TABEC PO SCH (09:32)
[2016-08-20] MEDS: MULTIVITAMIN TAB PO SCH (09:32)
[2016-08-20] MEDS: LISINOPRIL 10 MG TAB PO SCH ×2 (09:32→21:20)
[2016-08-20] MEDS: QUEtiapine FUMARATE 25 MG TAB PO SCH ×3 (09:32→17:55)
[2016-08-20] MEDS: traMADol HCL 50 MG TAB PO SCH ×2 (09:33→21:20)
[2016-08-20 10:29] LABS: AUTOMATED NEUTROPHIL # 7.5 TH/MM3 (1.8-7.7); BASOPHIL % 0.4 % (0.0-2.0); EOSINOPHIL # 0.2 TH/MM3 (0-0.4); EOSINOPHIL % 2.4 % (0.0-4.0); HEMATOCRIT 36.5 % (39.0-51.0); HEMO FLAGS DIFF FINAL; LYMPH % 15.4 % (9.0-44.0); LYMPHOCYTE # 1.5 TH/MM3 (1.0-4.8); MEAN CELL VOLUME 82.3 FL (80.0-100.0); MEAN CORPUSCULAR HEMOGLOBIN 27.5 PG (27.0-34.0); MEAN CORPUSCULAR HGB CONC 33.4 % (32.0-36.0); MONO % 7.1 % (0.0-8.0); NEUT % 74.7 % (16.0-70.0); PLATELET COUNT 155 TH/MM3 (150-450); RED BLOOD COUNT 4.43 MIL/MM3 (4.50-5.90)
[2016-08-20 10:57] LABS: ALKALINE PHOSPHATASE 65 U/L (45-117); ALT (GPT) 14 U/L (12-78); ANION GAP 10 MEQ/L (5-15); AST (GOT) 25 U/L (15-37); BICARBONATE 25.4 MEQ/L (21.0-32.0); BLOOD UREA NITROGEN 20 MG/DL (7-18); CHLORIDE 107 MEQ/L (98-107); GLOMERULAR FILTRATION RATE 45 ML/MIN (>89); MAGNESIUM 1.9 MG/DL (1.5-2.5); POTASSIUM 3.7 MEQ/L (3.5-5.1); SODIUM (NA) 142 MEQ/L (136-145); TOTAL BILIRUBIN ADULT 0.8 MG/DL (0.2-1.0)
--- NOTE | 2016-08-20 10:59 | EC ---
Study Study Date:08/20/2016 STUDY CONCLUSIONS SUMMARY - Left ventricle: The cavity size was normal. Wall thickness was normal. Systolic function was mildly reduced. The estimated ejection fraction was in the range of 45% to 50%. Regional wall motion abnormalities cannot be excluded. - Tricuspid valve: Mild regurgitation. If LV function is below 40, please consider prescribing an ACEI or ARB or document rationale for non-use. PROCEDURE DATA STUDY STATUS: Elective. Procedure: Transthoracic echocardiography. Image quality was suboptimal. Scanning was performed from the parasternal, apical, and subcostal acoustic windows. Study completion: The patient tolerated the procedure well. Transthoracic echocardiography. M-mode, complete 2D, complete spectral Doppler, and color Doppler. Patient status: Inpatient. CARDIAC ANATOMY LEFT VENTRICLE: The cavity size was normal. Wall thickness was normal. Systolic function was mildly reduced. The estimated ejection fraction was in the range of 45% to 50%. Regional wall motion abnormalities cannot be excluded. AORTIC VALVE: Poorly visualized. Trileaflet; mildly thickened, mildly calcified leaflets. Doppler: Transvalvular velocity was within the normal range. There was no stenosis. No regurgitation. AORTA: Aortic root: The aortic root was normal in size. MITRAL VALVE: Poorly visualized. Doppler: Transvalvular velocity was within the normal range. There was no evidence for stenosis. Trace regurgitation. LEFT ATRIUM: The atrium was normal in size. RIGHT VENTRICLE: The cavity size was normal. Wall thickness was normal. PULMONIC VALVE: Poorly visualized. Doppler: Transvalvular velocity was within the normal range. There was no evidence for stenosis. No regurgitation. TRICUSPID VALVE: Poorly visualized. Structurally normal valve. Doppler: Transvalvular velocity was within the normal range. Mild regurgitation. PULMONARY ARTERY: Systolic pressure was within the normal range. RIGHT ATRIUM: The atrium was normal in size. PERICARDIUM: There was no pericardial effusion. SYSTEMIC VEINS: Inferior vena cava: Poorly visualized. BASIC MEASUREMENTS ADULT Normal Left ventricle LV internal dimension, ED, chordal level, *35.6 mm 43-52 PLAX LV internal dimension, ES, chordal level, 29 mm 23-38 PLAX Fractional shortening, chordal level, PLAX *19 % >29 LV posterior wall thickness, ED 5.89 mm IVS/LVPW ratio, ED 1.27 <1.3 Ventricular septum Septal thickness, ED 7.46 mm Left atrium Anterior-posterior dimension 37 mm Right ventricle RV internal dimension, ED, PLAX 22.8 mm 19-38 DOPPLER MEASUREMENTS ADULT Normal Mitral valve Peak E-wave velocity 42.8 cm/s Peak A-wave velocity 53.2 cm/s Peak E/A ratio 0.8 Tricuspid valve Regurgitant peak velocity 273 cm/s Peak RV-RA gradient, S 30 mm Hg Maximal regurgitant velocity 273 cm/s LEGEND: Mean values are shown as u=mean value. Asterisk (*) munoz values outside specified normal range. Prepared and signed by Cholo Frederick [id number]
[2016-08-20] MEDS: VANCOMYCIN INJ 1,500 MG in SODIUM CHLORID 0.9% 500 ML INJ 500 ML IV SCH (11:01)
--- NOTE | 2016-08-20 15:44 | HHI.PR ---
Subjective Remarks Deferred entry, patient seen earlier at 9:40 AM. Patient seems to be more awake and less confused today. Patient is more responsive and answers questions Patient is afebrile Blood pressure slightly elevated Creatinine trending up. Objective Vitals Vital Signs Date Time Temp Pulse Resp B/P Pulse Ox O2 Delivery O2 Flow Rate FiO2 08/20/16 12:00 97.9 85 20 163/87 96 08/20/16 08:00 98.8 80 18 156/97 98 08/20/16 04:00 98.6 76 23 146/93 95 08/20/16 00:00 97.0 79 22 130/84 98 08/20/16 00:00 20 08/19/16 21:20 69 08/19/16 20:00 97.3 72 21 141/85 97 08/19/16 16:00 97.8 92 20 131/76 98 I/O 08/19/16 08/19/16 08/19/16 08/20/16 08/20/16 08/20/16 07:00 15:00 23:00 07:00 15:00 23:00 Intake Total 60 ml 1200 ml 2249 ml Output Total 350 ml Balance 60 ml 1200 ml 1899 ml Intake Oral 60 ml 1200 ml 240 ml IV Total 2009 ml Output Urine Total 350 ml # Voids 2 7 Result Diagram: 08/20/16 0932 08/20/16 0932 Imaging Last Impressions Renal Ultrasound 08/19/16 0000 Signed Impressions: Service Date/Time: Friday, August 19, 2016 13:38 - CONCLUSION: 1. Mild medical renal disease. No hydronephrosis. Bladder unremarkable. Garfield Sánchez MD Chest X-Ray 08/18/16 1744 Signed Impressions: Service Date/Time: July 18:26 - CONCLUSION: Consolidation and effusion at the left lung base. Donta Argueta MD Head CT 08/18/16 0000 Signed Impressions: Service Date/Time: July 19:33 - CONCLUSION: 1. No acute intracranial abnormality. 2. Chronic white matter changes. 3. Mild sinus disease. Donta Argueta MD Objective Remarks GENERAL: This is a well-nourished, well-developed patient, confused unable to provide meaningful information SKIN: No rashes, ecchymoses or lesions. Cool and dry. HEAD: Atraumatic. Normocephalic. No temporal or scalp tenderness. EYES: Extraocular motions intact. No scleral icterus. No injection or drainage. Enucleated right eye CARDIOVASCULAR: Tachycardic without murmurs, gallops, or rubs. RESPIRATORY: Clear to auscultation. Poor inspiratory effort GASTROINTESTINAL: Abdomen soft, non-tender, nondistended. MUSCULOSKELETAL: Extremities without clubbing, cyanosis, or edema. No joint tenderness, effusion, or edema noted. No calf tenderness. Negative Homans sign bilaterally. Generalized muscle atrophy NEUROLOGICAL: Awake and alert. Oriented to person only no focal deficits appreciated. Motor and sensory grossly within normal limits. 3 out of 5 muscle strength in all muscle groups. Normal speech. Procedures none Medications and IVs Current Medications Medications (Trade) Dose Ordered Sig/Nicole Route Start Time Stop Time Status Last Admin (NS Flush) 2 ml UNSCH PRN IV FLUSH 08/18/16 20:15 (NS Flush) 2 ml BID IV FLUSH 08/18/16 21:00 08/19/16 17:10 (Narcan Inj) 0.4 mg UNSCH PRN IV 08/18/16 20:15 (Ecotrin Ec) 81 mg DAILY PO 08/19/16 09:00 08/20/16 09:32 (Dulcolax Supp) 10 mg DAILY PRN RECTAL 08/18/16 21:45 (Prinivil) 10 mg BID PO 08/19/16 09:00 08/20/16 09:32 (Ativan) 0.5 mg Q6H PRN PO 08/18/16 21:45 (SEROquel) 25 mg TID PO 08/19/16 09:00 08/20/16 13:21 (Ultram) 50 mg BID PO 08/19/16 09:00 08/20/16 09:33 Patient Own Medication PT OWN MED: NUEDE... BID PO 08/19/16 09:00 Hold Multivitamins 1 tab 1 tab DAILY PO 08/19/16 09:00 08/20/16 09:32 Pharmacy Profile Note 0 ml @ 0 mls/hr UNSCH OTHER 08/18/16 21:45 Piperacillin Sod/ Tazobactam Sod 100 ml @ 200 mls/hr Q6H IV 08/19/16 00:00 08/20/16 13:21 (Vancomycin Inj/ NS 500 ml Inj) 515 ml @ 250 mls/hr Q24H IV 08/19/16 11:00 08/20/16 11:01 Miscellaneous Information SPECIFIC LAB TO BE DRAWN:VANCO TROUGH DATE TO BE DRAdarsh.. ONCE ONCE .XX 08/21/16 10:45 08/21/16 10:46 (NS 1000 ml Inj) 1,000 ml @ 84 mls/hr [id number] IV 08/19/16 14:00 08/20/16 06:35 A/P Problem List: (1) Sepsis ICD Code: A41.9 Status: Acute Plan: Present on admission. Poss aspiration since patient had nausea and vomiting in SNF vs [facility] Continue IV antibiotics as per ID recommendations - Iv Vancomycin and Iv Zosyn Blood cultures - (+) gram-positive cocci -infectious disease consulted Continue to follow up blood cultures Urine culture growing group D enterococcus. (2) UTI (urinary tract infection) ICD Code: N39.0 Status: Acute Plan: Urine culture growing group D enterococcus. Follow-up ID recommendations. (3) LLL pneumonia ICD Code: J18.1 Status: Acute Plan: As shown on chest x-ray above. Continue broad-spectrum IV antibiotics as above. Continue supplemental oxygen to keep oxygen saturation 100%. Patient has a good oxygen saturation on room air (4) MARCIA (acute kidney injury) ICD Code: N17.9 Status: Acute Plan: History of present illness on possible CKD stage III with baseline creatinine of 1.3 upon review of records. Creatinine seems to be worsening now up to 1.77 despite the patient being on IV fluids. Continue IV fluids for now. Renal ultrasound showed medical renal disease. Suspect ATN from sepsis and hypotension. Avoid nephrotoxins. Patient seems to be having a marginal urine output and however doesn't have a Lea catheter. I will order a Lea catheter to be inserted. Monitor strict input and output. We'll consult nephrology. (5) Dementia ICD Code: F03.90 Status: Chronic Plan: Seems stable. Continue home medications. (6) Encephalopathy acute ICD Code: G93.40 Status: Acute Plan: Patient presented with confusion. Initially difficult to know given the patient's history of dementia if patient was at its baseline. However patient today's more awake and more responsive, answering to questions. Encephalopathy likely secondary to sepsis, secondary to pneumonia and gram- positive bacteremia. Continue to monitor neurological status. Assessment and Plan DVT prophylaxis: We'll place on Lovenox subcutaneous. Discharge Planning Continue to monitor in the medical floor. Problem Qualifiers (1) Sepsis: Qualified Code: A41.9 - Sepsis, due to unspecified organism (2) UTI (urinary tract infection): Qualified Code: N30.00 - Acute cystitis without hematuria (3) LLL pneumonia: Qualified Code: J69.0 - Aspiration pneumonia of left lower lobe due to gastric secretions (4) Dementia: Qualified Code: F03.90 - Dementia without behavioral disturbance, unspecified dementia type Satinder Beebe MD August 20, 2016 15:44
[2016-08-20] MEDS: ENOXAPARIN SODIUM 40 MG/0.4 ML SYRINGE SQ SCH (17:55)
[2016-08-21] VITALS (8 sets, daily range): BP systolic 136–197; BP diastolic 69–112; PULSE 52–99; RESP 16–18; TEMP 97–98.8; O2SAT 95–100
[2016-08-21] MEDS: PIPERACIL-TAZO 4.5 GM PREMIX 100 ML IV SCH ×4 (05:28→23:42)
[2016-08-21 06:03] LABS: HEMATOCRIT 35.4 % (39.0-51.0); MEAN CELL VOLUME 81.7 FL (80.0-100.0); MEAN CORPUSCULAR HEMOGLOBIN 27.2 PG (27.0-34.0); MEAN CORPUSCULAR HGB CONC 33.3 % (32.0-36.0); PLATELET COUNT 155 TH/MM3 (150-450); RED BLOOD COUNT 4.33 MIL/MM3 (4.50-5.90); RED CELL DISTRIBUTION WIDTH 15.1 % (11.6-17.2); REVIEW FLAG FINAL; WHITE BLOOD COUNT 7.8 TH/MM3 (4.0-11.0)
[2016-08-21 06:48] LABS: ALKALINE PHOSPHATASE 63 U/L (45-117); ALT (GPT) 15 U/L (12-78); ANION GAP 8 MEQ/L (5-15); AST (GOT) 22 U/L (15-37); BICARBONATE 25.2 MEQ/L (21.0-32.0); BLOOD UREA NITROGEN 15 MG/DL (7-18); CHLORIDE 108 MEQ/L (98-107); GLOMERULAR FILTRATION RATE 49 ML/MIN (>89); POTASSIUM 3.6 MEQ/L (3.5-5.1); SODIUM (NA) 141 MEQ/L (136-145); TOTAL BILIRUBIN ADULT 0.7 MG/DL (0.2-1.0)
[2016-08-21] MEDS: traMADol HCL 50 MG TAB PO SCH ×2 (08:50→20:17)
[2016-08-21] MEDS: LISINOPRIL 10 MG TAB PO SCH (08:51)
[2016-08-21] MEDS: QUEtiapine FUMARATE 25 MG TAB PO SCH ×3 (08:51→16:53)
[2016-08-21] MEDS: MULTIVITAMIN TAB PO SCH (08:51)
[2016-08-21] MEDS: SODIUM CHLORIDE 0.9% FLUSH 10 ML FLUSH IV FLUSH SCH ×2 (08:51→21:00)
[2016-08-21] MEDS: ASPIRIN EC 81 MG TABEC PO SCH (08:51)
[2016-08-21] MEDS ORDERED: PHARMACY ORDERED LAB ONE (10:45)
[2016-08-21] MEDS ORDERED: LISINOPRIL 10 MG TAB PO ONE (11:45)
--- NOTE | 2016-08-21 11:49 | HHI.PR ---
Objective Vitals Vital Signs Date Time Temp Pulse Resp B/P Pulse Ox O2 Delivery O2 Flow Rate FiO2 08/21/16 08:00 98.2 76 18 161/95 98 08/21/16 04:00 97.0 77 17 167/96 95 08/21/16 00:00 97.4 66 18 154/80 96 08/20/16 22:26 19 08/20/16 21:00 74 08/20/16 20:00 96.5 70 17 160/97 95 08/20/16 16:00 96.3 78 20 132/80 96 08/20/16 12:00 97.9 85 20 163/87 96 I/O 08/20/16 08/20/16 08/20/16 08/21/16 08/21/16 08/21/16 07:00 15:00 23:00 07:00 15:00 23:00 Intake Total 2249 ml 580 ml 2159 ml 907 ml Output Total 350 ml 525 ml 850 ml Balance 1899 ml 580 ml 1634 ml 57 ml Intake Oral 240 ml 580 ml 480 ml 240 ml IV Total 2009 ml 1679 ml 667 ml Output Urine Total 350 ml 525 ml 850 ml # Bowel Movements 1 1 Result Diagram: 08/21/16 0526 08/21/16 05 Procedures none Urinary Catheter: No Vascular Central Line Catheter: No A/P Problem List: (1) Sepsis ICD Code: A41.9 Status: Resolved (2) UTI (urinary tract infection) ICD Code: N39.0 Status: Acute (3) LLL pneumonia ICD Code: J18.1 Status: Acute (4) MARCIA (acute kidney injury) ICD Code: N17.9 Status: Acute (5) Dementia ICD Code: F03.90 Status: Chronic Plan: Seems stable. Continue home medications. (6) Encephalopathy acute ICD Code: G93.40 Status: Resolved Assessment and Plan DVT prophylaxis: We'll place on Lovenox subcutaneous. Discharge Planning Continue to monitor in the medical floor. Problem Qualifiers (1) Sepsis: Qualified Code: A41.9 - Sepsis, due to unspecified organism (2) UTI (urinary tract infection): Qualified Code: N30.00 - Acute cystitis without hematuria (3) LLL pneumonia: Qualified Code: J69.0 - Aspiration pneumonia of left lower lobe due to gastric secretions (4) Dementia: Qualified Code: F03.90 - Dementia without behavioral disturbance, unspecified dementia type Satinder Beebe MD August 21, 2016 11:49 (1) Sepsis: Qualified Code: A41.9 - Sepsis, due to unspecified organism (2) UTI (urinary tract infection): Qualified Code: N30.00 - Acute cystitis without hematuria (3) LLL pneumonia: Qualified Code: J69.0 - Aspiration pneumonia of left lower lobe due to gastric secretions (4) Dementia: Qualified Code: F03.90 - Dementia without behavioral disturbance, unspecified dementia type Satinder Beebe MD August 21, 2016 11:49
[2016-08-21] MEDS: VANCOMYCIN INJ 1,500 MG in SODIUM CHLORID 0.9% 500 ML INJ 500 ML IV SCH (12:01)
--- NOTE | 2016-08-21 13:28 | PD.CONS ---
HPI Service Nephrology Consult Requested By Dr. Recio Reason for Consult Chronic kidney disease Primary Care Physician Sandro Chaidez MD History of Present Illness Patient is a 81-year-old male with history of dementia, hypertension was admitted with a infection UTI culture showed enterococcus species and has been placed on vancomycin 1.5 g daily he is also getting Zosyn patient creatinine is 1.6 his kidney ultrasound showed atrophic right kidney as compared to the left kidney, he is passing urine denies any dysuria burning. Review of Systems Constitutional: COMPLAINS OF: Fatigue Eyes: COMPLAINS OF: Vision loss (right eye) Musculoskeletal: COMPLAINS OF: Joint pain Neurologic: COMPLAINS OF: Localized weakness Past Family Social History Allergies: Coded Allergies: No Known Allergies (Verified , 06/12/14) Past Medical History Dementia Hypertension UTI Blindness right eye Schizophrenia Past Surgical History Appendectomy Right eye surgery Reported Medications Reported Meds & Active Scripts Active Reported Tramadol (Tramadol HCl) 50 Mg Tab 50 Mg PO BID Multiple Vitamin 1 Tab 1 Tab PO DAILY Nuedexta 20-10 mg (Dextromethorphan HBr-Quinidine) 1 Cap Cap 1 Cap PO BID Clonidine (Clonidine HCl) 0.1 Mg Tab 0.1 Mg PO BID PRN Quetiapine (Quetiapine Fumarate) 25 Mg Tab 25 Mg PO TID Prinivil (Lisinopril) 10 Mg Tab 10 Mg PO BID Dulcolax Supp (Bisacodyl) 10 Mg Supp 10 Mg RECTAL DAILY PRN Milk of Magnesia Concentrate Liq (Magnesium Hydroxide) 1,200 Mg/5 Ml Susp 30 Ml PO DAILY PRN Aspirin 81 (Aspirin) 81 Mg Tabdr 81 Mg PO DAILY Ativan (Lorazepam) 0.5 Mg Tab 0.5 Mg PO Q6H PRN Active Ordered Medications Current Medications Medications (Trade) Dose Ordered Sig/Nicole Route Start Time Stop Time Status Last Admin (NS Flush) 2 ml UNSCH PRN IV FLUSH 08/18/16 20:15 (NS Flush) 2 ml BID IV FLUSH 08/18/16 21:00 08/20/16 21:20 (Narcan Inj) 0.4 mg UNSCH PRN IV 08/18/16 20:15 (Ecotrin Ec) 81 mg DAILY PO 08/19/16 09:00 08/21/16 08:51 (Dulcolax Supp) 10 mg DAILY PRN RECTAL 08/18/16 21:45 (Ativan) 0.5 mg Q6H PRN PO 08/18/16 21:45 (SEROquel) 25 mg TID PO 08/19/16 09:00 08/21/16 08:51 (Ultram) 50 mg BID PO 08/19/16 09:00 08/21/16 08:50 Patient Own Medication PT OWN MED: NUEDE... BID PO 08/19/16 09:00 Hold Multivitamins 1 tab 1 tab DAILY PO 08/19/16 09:00 08/21/16 08:51 Pharmacy Profile Note 0 ml @ 0 mls/hr UNSCH OTHER 08/18/16 21:45 Piperacillin Sod/ Tazobactam Sod 100 ml @ 200 mls/hr Q6H IV 08/19/16 00:00 08/21/16 12:01 (Vancomycin Inj/ NS 500 ml Inj) 515 ml @ 250 mls/hr Q24H IV 08/19/16 11:00 08/21/16 12:01 (Lovenox Inj) 40 mg Q24H SQ 08/20/16 16:00 08/20/16 17:55 (Prinivil) 20 mg BID PO 08/21/16 21:00 Clonidine 0.1 mg 0.1 mg Q6H PRN PO 08/21/16 11:45 (NS 1000 ml Inj) 1,000 ml @ 42 mls/hr [id number] IV 08/21/16 12:00 Family History Noncontributory Social History Denies smoking or alcohol Physical Exam Vital Signs Vital Signs Date Time Temp Pulse Resp B/P Pulse Ox O2 Delivery O2 Flow Rate FiO2 08/21/16 12:00 97.6 83 18 136/88 98 08/21/16 08:00 98.2 76 18 161/95 98 08/21/16 04:00 97.0 77 17 167/96 95 08/21/16 00:00 97.4 66 18 154/80 96 08/20/16 22:26 19 08/20/16 21:00 74 08/20/16 20:00 96.5 70 17 160/97 95 08/20/16 16:00 96.3 78 20 132/80 96 Physical Exam GENERAL: Well-nourished, well-developed patient. SKIN: Warm and dry. HEAD: Normocephalic. EYES: No scleral icterus. Right eye blindness NECK: Supple, trachea midline. No JVD or lymphadenopathy. CARDIOVASCULAR: Regular rate and rhythm without murmurs, gallops, or rubs. RESPIRATORY: Breath sounds equal bilaterally. No accessory muscle use. GASTROINTESTINAL: Abdomen soft, non-tender, nondistended. EXTREMITIES: No cyanosis, or edema. NEUROLOGICAL: Awake, alert, Laboratory Laboratory Tests Test 08/21/16 08/21/16 05:26 10:55 White Blood Count 7.8 Red Blood Count 4.33 Hemoglobin 11.8 Hematocrit 35.4 Mean Corpuscular Volume 81.7 Mean Corpuscular Hemoglobin 27.2 Mean Corpuscular Hemoglobin 33.3 Concent Red Cell Distribution Width 15.1 Platelet Count 155 Mean Platelet Volume 8.6 Sodium Level 141 Potassium Level 3.6 Chloride Level 108 Carbon Dioxide Level 25.2 Anion Gap 8 Blood Urea Nitrogen 15 Creatinine 1.65 Estimat Glomerular Filtration 49 Rate Random Glucose 76 Calcium Level 8.4 Total Bilirubin 0.7 Aspartate Amino Transf 22 (AST/SGOT) Alanine Aminotransferase 15 (ALT/SGPT) Alkaline Phosphatase 63 Total Protein 6.6 Albumin 2.8 Vancomycin Level Trough 16.4 Date/Time Procedure Status Source Growth 08/19/16 18:48 Aerobic Blood Culture - Preliminary Resulted Blood Peripheral NO GROWTH IN 2 DAYS 08/19/16 18:48 Anaerobic Blood Culture - Preliminary Resulted Blood Peripheral NO GROWTH IN 2 DAYS 08/18/16 20:24 Urine Culture - Preliminary Resulted Urine Catheterized Urine Group D Enterococcus Result Diagram: 08/21/16 0526 08/21/16 0526 Imaging Last Impressions Renal Ultrasound 08/19/16 0000 Signed Impressions: Service Date/Time: Friday, August 19, 2016 13:38 - CONCLUSION: 1. Mild medical renal disease. No hydronephrosis. Bladder unremarkable. Garfield Sánchez MD Chest X-Ray 08/18/16 1744 Signed Impressions: Service Date/Time: July 18:26 - CONCLUSION: Consolidation and effusion at the left lung base. Donta Argueta MD Head CT 08/18/16 0000 Signed Impressions: Service Date/Time: July 19:33 - CONCLUSION: 1. No acute intracranial abnormality. 2. Chronic white matter changes. 3. Mild sinus disease. Donta Argueta MD Assessment and Plan Problem List: (1) CKD (chronic kidney disease) stage 3, GFR 30-59 ml/min Plan: Patient kidney ultrasound showed He has atrophic kidneys and most likely hypertensive nephrosclerosis without any overt proteinuria, his baseline creatinine is 1.3 He is being treated for urinary tract infection follow vancomycin level and switch him to less nephrotoxic agent if possible Keep him well hydrated Avoid nephrotoxins or dye studies (2) UTI (urinary tract infection) Plan: Patient is treated with vancomycin and Zosyn (3) Dementia Plan: Baseline Problem Qualifiers (1) UTI (urinary tract infection): Qualified Code: N30.00 - Acute cystitis without hematuria (2) Dementia: Qualified Code: F03.90 - Dementia without behavioral disturbance, unspecified dementia type Jodi Rodriguez MD August 21, 2016 13:28 Jodi Rodriguez MD August 21, 2016 13:28
--- NOTE | 2016-08-21 13:35 | HHI.PR ---
Subjective Remarks Patient seen at 11: 40 am BP noted to be very elevated in the 160's systolic. Patient awake denies pain afebrile Objective Vitals Vital Signs Date Time Temp Pulse Resp B/P Pulse Ox O2 Delivery O2 Flow Rate FiO2 08/21/16 12:00 97.6 83 18 136/88 98 08/21/16 08:00 98.2 76 18 161/95 98 08/21/16 04:00 97.0 77 17 167/96 95 08/21/16 00:00 97.4 66 18 154/80 96 08/20/16 22:26 19 08/20/16 21:00 74 08/20/16 20:00 96.5 70 17 160/97 95 08/20/16 16:00 96.3 78 20 132/80 96 I/O 08/20/16 08/20/16 08/20/16 08/21/16 08/21/16 08/21/16 07:00 15:00 23:00 07:00 15:00 23:00 Intake Total 2249 ml 580 ml 2159 ml 907 ml Output Total 350 ml 525 ml 850 ml Balance 1899 ml 580 ml 1634 ml 57 ml Intake Oral 240 ml 580 ml 480 ml 240 ml IV Total 2009 ml 1679 ml 667 ml Output Urine Total 350 ml 525 ml 850 ml # Bowel Movements 1 1 Result Diagram: 08/21/16 0526 08/21/16 0526 Imaging Last Impressions Renal Ultrasound 08/19/16 0000 Signed Impressions: Service Date/Time: Friday, August 19, 2016 13:38 - CONCLUSION: 1. Mild medical renal disease. No hydronephrosis. Bladder unremarkable. Garfield Sánchez MD Chest X-Ray 08/18/16 1744 Signed Impressions: Service Date/Time: July 18:26 - CONCLUSION: Consolidation and effusion at the left lung base. Donta Argueta MD Head CT 08/18/16 0000 Signed Impressions: Service Date/Time: July 19:33 - CONCLUSION: 1. No acute intracranial abnormality. 2. Chronic white matter changes. 3. Mild sinus disease. Donta Argueta MD Objective Remarks GENERAL: This is a well-nourished, well-developed patient, confused unable to provide meaningful information SKIN: No rashes, ecchymoses or lesions. Cool and dry. HEAD: Atraumatic. Normocephalic. No temporal or scalp tenderness. EYES: Extraocular motions intact. No scleral icterus. No injection or drainage. Enucleated right eye CARDIOVASCULAR: Tachycardic without murmurs, gallops, or rubs. RESPIRATORY: Clear to auscultation. Poor inspiratory effort GASTROINTESTINAL: Abdomen soft, non-tender, nondistended. MUSCULOSKELETAL: Extremities without clubbing, cyanosis, or edema. No joint tenderness, effusion, or edema noted. No calf tenderness. Negative Homans sign bilaterally. Generalized muscle atrophy NEUROLOGICAL: Awake and alert. Oriented to person only no focal deficits appreciated. Motor and sensory grossly within normal limits. 3 out of 5 muscle strength in all muscle groups. Normal speech. Procedures none Medications and IVs Current Medications Medications (Trade) Dose Ordered Sig/Nicole Route Start Time Stop Time Status Last Admin (NS Flush) 2 ml UNSCH PRN IV FLUSH 08/18/16 20:15 (NS Flush) 2 ml BID IV FLUSH 08/18/16 21:00 08/20/16 21:20 (Narcan Inj) 0.4 mg UNSCH PRN IV 08/18/16 20:15 (Ecotrin Ec) 81 mg DAILY PO 08/19/16 09:00 08/21/16 08:51 (Dulcolax Supp) 10 mg DAILY PRN RECTAL 08/18/16 21:45 (Ativan) 0.5 mg Q6H PRN PO 08/18/16 21:45 (SEROquel) 25 mg TID PO 08/19/16 09:00 08/21/16 08:51 (Ultram) 50 mg BID PO 08/19/16 09:00 08/21/16 08:50 Patient Own Medication PT OWN MED: NUEDE... BID PO 08/19/16 09:00 Hold Multivitamins 1 tab 1 tab DAILY PO 08/19/16 09:00 08/21/16 08:51 Pharmacy Profile Note 0 ml @ 0 mls/hr UNSCH OTHER 08/18/16 21:45 Piperacillin Sod/ Tazobactam Sod 100 ml @ 200 mls/hr Q6H IV 08/19/16 00:00 08/21/16 12:01 (Vancomycin Inj/ NS 500 ml Inj) 515 ml @ 250 mls/hr Q24H IV 08/19/16 11:00 08/21/16 12:01 (Lovenox Inj) 40 mg Q24H SQ 08/20/16 16:00 08/20/16 17:55 (Prinivil) 20 mg BID PO 08/21/16 21:00 Clonidine 0.1 mg 0.1 mg Q6H PRN PO 08/21/16 11:45 (NS 1000 ml Inj) 1,000 ml @ 42 mls/hr [id number] IV 08/21/16 12:00 Urinary Catheter: No Vascular Central Line Catheter: No A/P Problem List: (1) Sepsis ICD Code: A41.9 Status: Acute (2) UTI (urinary tract infection) ICD Code: N39.0 Status: Acute (3) LLL pneumonia ICD Code: J18.1 Status: Acute (4) MARCIA (acute kidney injury) ICD Code: N17.9 Status: Acute (5) Dementia ICD Code: F03.90 Status: Chronic (6) Encephalopathy acute ICD Code: G93.40 Status: Acute (7) CKD (chronic kidney disease) stage 3, GFR 30-59 ml/min ICD Code: N18.3 Status: Acute (8) Uncontrolled hypertension ICD Code: I10 Status: Acute Plan: Patient on lisinopril. Will increase dose to 20 mg po daily and give 10 mg po once. Assessment and Plan (1) Sepsis Plan: Present on admission. Poss aspiration since patient had nausea and vomiting in [facility] vs [facility] Continue IV antibiotics as per ID recommendations - Iv Vancomycin and Iv Zosyn Blood cultures - (+) gram-positive cocci -infectious disease consulted Continue to follow up blood cultures Urine culture growing group D enterococcus. (2) UTI (urinary tract infection) Plan: Urine culture growing group D enterococcus. Follow-up ID recommendations. (3) LLL pneumonia Plan: As shown on chest x-ray above. Continue broad-spectrum IV antibiotics as above. Continue supplemental oxygen to keep oxygen saturation 100%. Patient has a good oxygen saturation on room air (4) MARCIA (acute kidney injury) Plan: History of present illness on possible CKD stage III with baseline creatinine of 1.3 upon review of records. Creatinine seems to be worsening now up to 1.77 despite the patient being on IV fluids. Continue IV fluids for now. Renal ultrasound showed medical renal disease. Suspect ATN from sepsis and hypotension. Avoid nephrotoxins. Patient seems to be having a marginal urine output and however doesn't have a Lea catheter. I will order a Lea catheter to be inserted. Monitor strict input and output. Consult nephrology. (5) Dementia Plan: Seems stable. Continue home medications. (6) Encephalopathy acute Plan: Patient presented with confusion. Initially difficult to know given the patient's history of dementia if patient was at its baseline. However patient today's more awake and more responsive, answering to questions. Encephalopathy likely secondary to sepsis, secondary to pneumonia and gram- positive bacteremia. Continue to monitor neurological status. Encephalopathy seems to have resolved, patient awake and alert - seems to be at baseline. DVT prophylaxis: SCD's, Lovenox SQ Discharge Planning Continue to monitor in the medical floor. Problem Qualifiers (1) Sepsis: Qualified Code: A41.9 - Sepsis, due to unspecified organism (2) UTI (urinary tract infection): Qualified Code: N30.00 - Acute cystitis without hematuria (3) LLL pneumonia: Qualified Code: J69.0 - Aspiration pneumonia of left lower lobe due to gastric secretions (4) Dementia: Qualified Code: F03.90 - Dementia without behavioral disturbance, unspecified dementia type Satinder Beebe MD August 21, 2016 13:35
[2016-08-21] MEDS: SODIUM CHLOR 0.9% 1000 ML INJ 1,000 ML IV SCH (13:39)
[2016-08-21] MEDS: ENOXAPARIN SODIUM 40 MG/0.4 ML SYRINGE SQ SCH (16:53)
[2016-08-21] MEDS: LISINOPRIL 20 MG TAB PO SCH (20:17)
[2016-08-22] VITALS (8 sets, daily range): BP systolic 137–178; BP diastolic 71–89; PULSE 65–88; RESP 17–22; TEMP 96.5–98.2; O2SAT 96–98
[2016-08-22 08:12] LABS: HEMATOCRIT 38.2 % (39.0-51.0); MEAN CELL VOLUME 81.5 FL (80.0-100.0); MEAN CORPUSCULAR HEMOGLOBIN 26.4 PG (27.0-34.0); MEAN CORPUSCULAR HGB CONC 32.4 % (32.0-36.0); PLATELET COUNT 163 TH/MM3 (150-450); RED BLOOD COUNT 4.69 MIL/MM3 (4.50-5.90); REVIEW FLAG FINAL; WHITE BLOOD COUNT 6.2 TH/MM3 (4.0-11.0)
[2016-08-22 08:35] LABS: BICARBONATE 23.9 MEQ/L (21.0-32.0); MAGNESIUM 1.9 MG/DL (1.5-2.5); POTASSIUM 3.4 MEQ/L (3.5-5.1)
[2016-08-22] MEDS: traMADol HCL 50 MG TAB PO SCH ×2 (08:45→21:41)
[2016-08-22] MEDS: SODIUM CHLORIDE 0.9% FLUSH 10 ML FLUSH IV FLUSH SCH ×2 (08:45→21:40)
[2016-08-22] MEDS: QUEtiapine FUMARATE 25 MG TAB PO SCH ×3 (08:45→19:00)
[2016-08-22] MEDS: ASPIRIN EC 81 MG TABEC PO SCH (08:45)
[2016-08-22] MEDS: LISINOPRIL 20 MG TAB PO SCH ×2 (08:45→21:44)
[2016-08-22] MEDS: MULTIVITAMIN TAB PO SCH (08:45)
[2016-08-22] MEDS ORDERED: POTASSIUM CHLORIDE 20 MEQ CONTROLLED RELEASE TAB PO ONE (11:15)
[2016-08-22] MEDS: PIPERACIL-TAZO 3.375 GM PREMIX 50 ML IV SCH ×2 (12:00→19:02)
[2016-08-22] MEDS: VANCOMYCIN INJ 1,500 MG in SODIUM CHLORID 0.9% 500 ML INJ 500 ML IV SCH (12:36)
[2016-08-22] MEDS: SODIUM CHLOR 0.9% 1000 ML INJ 1,000 ML IV SCH (12:37)
--- NOTE | 2016-08-22 13:08 | HHI.NPPN ---
Subjective History of Present Illness 81 year old with sepsis UTI ARF/ckd Review of Systems General Constitutional: Fatigue Objective Data Data 08/21/16 08/22/16 19:00 07:00 Intake Total 1080 ml 787 ml Output Total 1700 ml 1600 ml Balance -620 ml -813 ml Intake Oral 1080 ml 480 ml IV Total 307 ml Output Urine Total 1700 ml 1600 ml Vital Signs Date Time Temp Pulse Resp B/P Pulse Ox O2 Delivery O2 Flow Rate FiO2 08/22/16 12:00 96.5 78 18 137/82 98 08/22/16 09:14 85 08/22/16 08:55 96.6 70 18 143/78 97 08/22/16 04:00 98.0 72 18 152/71 97 08/22/16 00:00 97.6 65 17 157/88 98 08/21/16 22:10 16 08/21/16 21:40 91 164/69 08/21/16 20:00 97.1 99 18 197/112 96 08/21/16 17:30 98.8 52 16 168/84 100 -: 08/22/16 0703 08/22/16 0703 Physical Exam General Appearance: Well Developed Neck Neck Exam: Neck Supple Pulmonary Resp Exam: Clear Bilaterally, Breath Sounds Equal Cardiology CV Exam: Regular, Normal Sinus Rhythm Gastrointestinal/Abdomen GI Exam: Soft, Non-Tender, Bowel Sounds Present Extremeties Extremities Exam: No Edema Assessment/Plan Problem List: (1) CKD (chronic kidney disease) stage 3, GFR 30-59 ml/min Plan: Patient kidney ultrasound showed He has atrophic kidneys and most likely hypertensive nephrosclerosis without any overt proteinuria, his baseline creatinine is 1.3 He is being treated for urinary tract infection follow vancomycin level and switch him to less nephrotoxic agent if possible Cr 1.6 K low replaced UOP good strep Viridans in blood on Zosyn (2) UTI (urinary tract infection) Plan: Patient is treated with vancomycin and Zosyn (3) Dementia Plan: Baseline (4) Sepsis Plan: strep Viridans Problem Qualifiers (1) UTI (urinary tract infection): Qualified Code: N30.00 - Acute cystitis without hematuria (2) Dementia: Qualified Code: F03.90 - Dementia without behavioral disturbance, unspecified dementia type (3) Sepsis: Qualified Code: A41.9 - Sepsis, due to unspecified organism Jodi Rodriguez MD August 22, 2016 13:08
--- NOTE | 2016-08-22 13:56 | HHI.IDPN ---
Subjective Subjective Remarks ID X cover for Dr Moya chart reviewed Pt is a poor historian Patient is a 81-year-old male,presented with vomiting and febrile. Blood clx + for Enterococcus, urine clx also enterococcus Pt is now afebrile WBC nl repeat BC negative at 3 days Antibiotics zosyn vancomycin Past Medical History Pseudobulbar affective disorder Schizophrenia Dementia CAD Past Surgical History Appendectomy Allergies: Coded Allergies: No Known Allergies (Verified , 06/12/14) Objective . Vital Signs Date Time Temp Pulse Resp B/P Pulse Ox O2 Delivery O2 Flow Rate FiO2 08/22/16 12:00 96.5 78 18 137/82 98 08/22/16 09:14 85 08/22/16 08:55 96.6 70 18 143/78 97 08/22/16 04:00 98.0 72 18 152/71 97 08/22/16 00:00 97.6 65 17 157/88 98 08/21/16 22:10 16 08/21/16 21:40 91 164/69 08/21/16 20:00 97.1 99 18 197/112 96 08/21/16 17:30 98.8 52 16 168/84 100 08/21/16 08/21/16 08/22/16 15:00 23:00 07:00 Intake Total 1320 ml 547 ml Output Total 2650 ml 650 ml Balance -1330 ml -103 ml Intake Oral 1320 ml 240 ml IV Total 307 ml Output Urine Total 2650 ml 650 ml . Laboratory Tests Test 08/21/16 08/22/16 05:26 07:03 White Blood Count 7.8 TH/MM3 6.2 TH/MM3 Red Blood Count 4.33 MIL/MM3 4.69 MIL/MM3 Hemoglobin 11.8 GM/DL 12.4 GM/DL Hematocrit 35.4 % 38.2 % Mean Corpuscular Volume 81.7 FL 81.5 FL Mean Corpuscular Hemoglobin 27.2 PG 26.4 PG Mean Corpuscular Hemoglobin 33.3 % 32.4 % Concent Red Cell Distribution Width 15.1 % 15.0 % Platelet Count 155 TH/MM3 163 TH/MM3 Mean Platelet Volume 8.6 FL 8.6 FL Laboratory Tests Test 08/21/16 08/22/16 05:26 07:03 Sodium Level 141 MEQ/L 142 MEQ/L Potassium Level 3.6 MEQ/L 3.4 MEQ/L Chloride Level 108 MEQ/L 109 MEQ/L Carbon Dioxide Level 25.2 MEQ/L 23.9 MEQ/L Anion Gap 8 MEQ/L 9 MEQ/L Blood Urea Nitrogen 15 MG/DL 11 MG/DL Creatinine 1.65 MG/DL 1.64 MG/DL Estimat Glomerular Filtration 49 ML/MIN 49 ML/MIN Rate Random Glucose 76 MG/DL 79 MG/DL Calcium Level 8.4 MG/DL 8.5 MG/DL Total Bilirubin 0.7 MG/DL Aspartate Amino Transf 22 U/L (AST/SGOT) Alanine Aminotransferase 15 U/L (ALT/SGPT) Alkaline Phosphatase 63 U/L Total Protein 6.6 GM/DL Albumin 2.8 GM/DL Phosphorus Level 2.8 MG/DL Magnesium Level 1.9 MG/DL Microbiology Date/Time Procedure Status Source Growth 08/19/16 18:40 Aerobic Blood Culture - Preliminary Resulted Blood Peripheral NO GROWTH IN 3 DAYS 08/19/16 18:40 Anaerobic Blood Culture - Preliminary Resulted Blood Peripheral NO GROWTH IN 3 DAYS 08/19/16 18:48 Aerobic Blood Culture - Preliminary Resulted Blood Peripheral NO GROWTH IN 3 DAYS 08/19/16 18:48 Anaerobic Blood Culture - Preliminary Resulted Blood Peripheral NO GROWTH IN 3 DAYS Imaging Last Impressions Renal Ultrasound 08/19/16 0000 Signed Impressions: Service Date/Time: Friday, August 19, 2016 13:38 - CONCLUSION: 1. Mild medical renal disease. No hydronephrosis. Bladder unremarkable. Garfield Sánchez MD Chest X-Ray 08/18/16 1744 Signed Impressions: Service Date/Time: July 18:26 - CONCLUSION: Consolidation and effusion at the left lung base. Donta Argueta MD Head CT 08/18/16 0000 Signed Impressions: Service Date/Time: July 19:33 - CONCLUSION: 1. No acute intracranial abnormality. 2. Chronic white matter changes. 3. Mild sinus disease. Donta Argueta MD Physical Exam GENERAL: Patient is a well-nourished, well-developed male, awake and alert, not in respiratory distress. SKIN: Warm and dry. No generalized rash, no ecchymoses and no evidence of embolic lesions. HEAD: Atraumatic. Normocephalic. No temporal wasting, or tenderness. EYES: [place] conjunctiva. No petechia or hemorrhage. Pupils equal, round and reactive to light. Extraocular movements full and intact. No scleral icterus. No injection or drainage. EARS, NOSE AND THROAT: Nose without bleeding or purulent nasal discharge. No sinus tenderness. Mucous membranes pink and moist. No oral lesions noted. No exudate. No oral thrush. NECK: Trachea midline. Supple and not tender, no meningeal signs CARDIOVASCULAR: Regular rate and rhythm. No murmurs, rubs or gallops heard RESPIRATORY: Clear to auscultation. Breath sounds equal bilaterally. No rales , wheezing or rhonchi. Decreased BS at bases ABDOMEN: Soft, non-tender, nondistended. Bowel sounds present and normoactive. No guarding. No rebound. No organomegaly. EXTREMITIES: No clubbing, cyanosis, or edema. Has contractures of BLE. No joint effusion. No calf tenderness. Well perfused and warm. NEUROLOGICAL: Awake and alert. Follows commnds, but not communicates appropiately, says "OK" to every question PSYCHIATRIC: Flat affect LINE: No evidence of infection : catheter in place with clear yellow urine Assessment & Plan Remarks IMPRESSION Sepsis on presentation - likley UTI as the soucer - abnormal UA, clx + for GD Ent High grade streptococcal bactermia - ? source? - 2 D echo negative for vetgg's, but both aortic and mitral valves were poorly visualized Dementia, schitzophrenia Renal insufficiency - stable UTI, enterococcus RECOMMENDATION fu repeat 2 BC today Continue vanco If repeat BC positive will need SUKH to r/o endocarditis Batsheva Tomas MD August 22, 2016 13:56
--- NOTE | 2016-08-22 15:22 | HHI.PR ---
Subjective Remarks fu sepsis, encephalopathy, gram positive bacteremia patient is awake, denies any pain, afebrile denies cp/sob bp better vital signs stable Objective Vitals Vital Signs Date Time Temp Pulse Resp B/P Pulse Ox O2 Delivery O2 Flow Rate FiO2 08/22/16 12:00 96.5 78 18 137/82 98 08/22/16 09:14 85 08/22/16 08:55 96.6 70 18 143/78 97 08/22/16 04:00 98.0 72 18 152/71 97 08/22/16 00:00 97.6 65 17 157/88 98 08/21/16 22:10 16 08/21/16 21:40 91 164/69 08/21/16 20:00 97.1 99 18 197/112 96 08/21/16 17:30 98.8 52 16 168/84 100 I/O 08/21/16 08/21/16 08/21/16 08/22/16 08/22/16 08/22/16 07:00 15:00 23:00 07:00 15:00 23:00 Intake Total 907 ml 1320 ml 547 ml Output Total 850 ml 2650 ml 650 ml Balance 57 ml -1330 ml -103 ml Intake Oral 240 ml 1320 ml 240 ml IV Total 667 ml 307 ml Output Urine Total 850 ml 2650 ml 650 ml # Bowel Movements 1 Result Diagram: 08/22/16 0703 08/22/16 0703 Imaging Last Impressions Renal Ultrasound 08/19/16 0000 Signed Impressions: Service Date/Time: Friday, August 19, 2016 13:38 - CONCLUSION: 1. Mild medical renal disease. No hydronephrosis. Bladder unremarkable. Garfield Sánchez MD Chest X-Ray 08/18/16 1744 Signed Impressions: Service Date/Time: July 18:26 - CONCLUSION: Consolidation and effusion at the left lung base. Donta Argueta MD Head CT 08/18/16 0000 Signed Impressions: Service Date/Time: July 19:33 - CONCLUSION: 1. No acute intracranial abnormality. 2. Chronic white matter changes. 3. Mild sinus disease. Donta Argueta MD Objective Remarks GENERAL: This is a well-nourished, well-developed patient, confused unable to provide meaningful information SKIN: No rashes, ecchymoses or lesions. Cool and dry. HEAD: Atraumatic. Normocephalic. No temporal or scalp tenderness. EYES: Extraocular motions intact. No scleral icterus. No injection or drainage. Enucleated right eye CARDIOVASCULAR: Tachycardic without murmurs, gallops, or rubs. RESPIRATORY: Clear to auscultation. Poor inspiratory effort GASTROINTESTINAL: Abdomen soft, non-tender, nondistended. MUSCULOSKELETAL: Extremities without clubbing, cyanosis, or edema. No joint tenderness, effusion, or edema noted. No calf tenderness. Negative Homans sign bilaterally. Generalized muscle atrophy NEUROLOGICAL: Awake and alert. Oriented to person only no focal deficits appreciated. Motor and sensory grossly within normal limits. 3 out of 5 muscle strength in all muscle groups. Normal speech. Procedures none Medications and IVs Current Medications Medications (Trade) Dose Ordered Sig/Nicole Route Start Time Stop Time Status Last Admin (NS Flush) 2 ml UNSCH PRN IV FLUSH 08/18/16 20:15 (NS Flush) 2 ml BID IV FLUSH 08/18/16 21:00 08/21/16 21:00 (Narcan Inj) 0.4 mg UNSCH PRN IV 08/18/16 20:15 (Ecotrin Ec) 81 mg DAILY PO 08/19/16 09:00 08/22/16 08:45 (Dulcolax Supp) 10 mg DAILY PRN RECTAL 08/18/16 21:45 (Ativan) 0.5 mg Q6H PRN PO 08/18/16 21:45 (SEROquel) 25 mg TID PO 08/19/16 09:00 08/22/16 12:38 (Ultram) 50 mg BID PO 08/19/16 09:00 08/22/16 08:45 Patient Own Medication PT OWN MED: NUEDE... BID PO 08/19/16 09:00 Hold Multivitamins 1 tab 1 tab DAILY PO 08/19/16 09:00 08/22/16 08:45 Pharmacy Profile Note 0 ml @ 0 mls/hr UNSCH OTHER 08/18/16 21:45 (Vancomycin Inj/ NS 500 ml Inj) 515 ml @ 250 mls/hr Q24H IV 08/19/16 11:00 08/22/16 12:36 (Lovenox Inj) 40 mg Q24H SQ 08/20/16 16:00 08/21/16 16:53 (Prinivil) 20 mg BID PO 08/21/16 21:00 08/22/16 08:45 Clonidine 0.1 mg 0.1 mg Q6H PRN PO 08/21/16 11:45 Sodium Chloride 1,000 ml @ 42 mls/hr [id number] IV 08/21/16 12:00 08/22/16 12:37 (Zosyn 3.375 Gm Premix) 50 ml @ 100 mls/hr Q6H IV 08/22/16 12:00 Urinary Catheter: No Vascular Central Line Catheter: No A/P Problem List: (1) Sepsis ICD Code: A41.9 Status: Resolved (2) UTI (urinary tract infection) ICD Code: N39.0 Status: Acute (3) LLL pneumonia ICD Code: J18.1 Status: Acute (4) MARCIA (acute kidney injury) ICD Code: N17.9 Status: Acute (5) Dementia ICD Code: F03.90 Status: Chronic (6) Encephalopathy acute ICD Code: G93.40 Status: Resolved (7) CKD (chronic kidney disease) stage 3, GFR 30-59 ml/min ICD Code: N18.3 Status: Acute (8) Uncontrolled hypertension ICD Code: I10 Status: Acute Assessment and Plan (1) Sepsis Plan: Present on admission. Poss aspiration since patient had nausea and vomiting in SNF vs [facility] Continue IV antibiotics as per ID recommendations - Iv Vancomycin and Iv Zosyn Blood cultures - (+) gram-positive cocci -infectious disease consulted Continue to follow up blood cultures Urine culture growing group D enterococcus. Likely UTI the source as per ID. (2) UTI (urinary tract infection) Plan: Urine culture growing group D enterococcus. Follow-up ID recommendations. (3) LLL pneumonia Plan: As shown on chest x-ray above. Continue broad-spectrum IV antibiotics as above. Continue supplemental oxygen to keep oxygen saturation 100%. Patient has a good oxygen saturation on room air (4) MARCIA (acute kidney injury) Plan: History of present illness on possible CKD stage III with baseline creatinine of 1.3 upon review of records. Initially creatinine worsening despite on being on Iv fluids. Continue IV fluids for now. Renal ultrasound showed medical renal disease. Suspect ATN from sepsis and hypotension. Avoid nephrotoxins. Garcia catheter inserted for low urine output. nephrology consulted - appreciate recommendations 08/[address] Discontinue garcia catheter and place condom catheter, patient has a good urine output and creatinine is trending down. Continue to monitor BUN and creatinine, monitor strict I's and O's, avoid nephrotoxins. (5) Dementia Plan: Seems stable. Continue home medications. (6) Encephalopathy acute Plan: Patient presented with confusion. Initially difficult to know given the patient's history of dementia if patient was at its baseline. However patient today's more awake and more responsive, answering to questions. Encephalopathy likely secondary to sepsis, secondary to pneumonia and gram- positive bacteremia. Continue to monitor neurological status. Encephalopathy seems to have resolved, patient awake and alert - seems to be at baseline. DVT prophylaxis: SCD's, Lovenox SQ Discharge Planning Continue to monitor in the medical floor. Discharge pending ID clearance. Problem Qualifiers (1) Sepsis: Qualified Code: A41.9 - Sepsis, due to unspecified organism (2) UTI (urinary tract infection): Qualified Code: N30.00 - Acute cystitis without hematuria (3) LLL pneumonia: Qualified Code: J69.0 - Aspiration pneumonia of left lower lobe due to gastric secretions (4) Dementia: Qualified Code: F03.90 - Dementia without behavioral disturbance, unspecified dementia type Satinder Beebe MD August 22, 2016 15:22
[2016-08-22] MEDS: ENOXAPARIN SODIUM 40 MG/0.4 ML SYRINGE SQ SCH (16:33)
[2016-08-22] MEDS: cloNIDine HCL 0.1 MG TAB PO PRN (16:33)
[2016-08-23] VITALS (9 sets, daily range): BP systolic 144–183; BP diastolic 73–110; PULSE 55–81; RESP 16–20; TEMP 96.4–97.7; O2SAT 96–100
[2016-08-23] MEDS: PIPERACIL-TAZO 3.375 GM PREMIX 50 ML IV SCH ×2 (00:27→06:17)
[2016-08-23] MEDS: cloNIDine HCL 0.1 MG TAB PO PRN ×2 (06:17→16:11)
[2016-08-23] MEDS: SODIUM CHLOR 0.9% 1000 ML INJ 1,000 ML IV SCH (06:21)
[2016-08-23] MEDS: ASPIRIN EC 81 MG TABEC PO SCH (09:43)
[2016-08-23] MEDS: LISINOPRIL 20 MG TAB PO SCH ×2 (09:43→21:54)
[2016-08-23] MEDS: SODIUM CHLORIDE 0.9% FLUSH 10 ML FLUSH IV FLUSH SCH ×2 (09:43→21:00)
[2016-08-23] MEDS: traMADol HCL 50 MG TAB PO SCH ×2 (09:43→21:54)
[2016-08-23] MEDS: MULTIVITAMIN TAB PO SCH (09:43)
[2016-08-23] MEDS: QUEtiapine FUMARATE 25 MG TAB PO SCH ×3 (09:43→18:31)
[2016-08-23] MEDS: VANCOMYCIN INJ 1,500 MG in SODIUM CHLORID 0.9% 500 ML INJ 500 ML IV SCH (09:50)
--- NOTE | 2016-08-23 10:20 | HHI.IDPN ---
Subjective Subjective Remarks Pt is a poor historian Patient is a 81-year-old male,presented with vomiting and febrile. Blood clx + for Enterococcus and Strep viridans, urine clx also enterococcus Notes reviewed Temps ok No new (+) BC Echo has mild TR. AV and MV not well visualized WBC nl Antibiotics zosyn vancomycin Past Medical History Pseudobulbar affective disorder Schizophrenia Dementia CAD Past Surgical History Appendectomy Allergies: Coded Allergies: No Known Allergies (Verified , 06/12/14) Objective . Vital Signs Date Time Temp Pulse Resp B/P Pulse Ox O2 Delivery O2 Flow Rate FiO2 08/23/16 08:32 97.7 59 20 147/73 97 08/23/16 04:00 96.4 55 18 166/89 96 08/23/16 00:30 158/88 08/23/16 00:00 97.0 70 20 169/110 96 08/22/16 20:35 78 08/22/16 20:00 97.8 88 22 158/89 98 08/22/16 16:20 98.2 84 22 178/84 96 08/22/16 12:00 96.5 78 18 137/82 98 08/22/16 08/22/16 08/23/16 14:59 22:59 06:59 Intake Total 480 ml 719 ml 705 ml Output Total 400 ml 650 ml Balance 80 ml 69 ml 705 ml Intake Oral 480 ml IV Total 719 ml 705 ml Output Urine Total 400 ml 650 ml # Bowel Movements 1 . Laboratory Tests Test 08/22/16 07:03 White Blood Count 6.2 TH/MM3 Red Blood Count 4.69 MIL/MM3 Hemoglobin 12.4 GM/DL Hematocrit 38.2 % Mean Corpuscular Volume 81.5 FL Mean Corpuscular Hemoglobin 26.4 PG Mean Corpuscular Hemoglobin 32.4 % Concent Red Cell Distribution Width 15.0 % Platelet Count 163 TH/MM3 Mean Platelet Volume 8.6 FL Laboratory Tests Test 08/22/16 07:03 Sodium Level 142 MEQ/L Potassium Level 3.4 MEQ/L Chloride Level 109 MEQ/L Carbon Dioxide Level 23.9 MEQ/L Anion Gap 9 MEQ/L Blood Urea Nitrogen 11 MG/DL Creatinine 1.64 MG/DL Estimat Glomerular Filtration 49 ML/MIN Rate Random Glucose 79 MG/DL Calcium Level 8.5 MG/DL Phosphorus Level 2.8 MG/DL Magnesium Level 1.9 MG/DL Imaging Last Impressions Renal Ultrasound 08/19/16 0000 Signed Impressions: Service Date/Time: Friday, August 19, 2016 13:38 - CONCLUSION: 1. Mild medical renal disease. No hydronephrosis. Bladder unremarkable. Garfield Sánchez MD Chest X-Ray 08/18/16 1744 Signed Impressions: Service Date/Time: July 18:26 - CONCLUSION: Consolidation and effusion at the left lung base. Donta Argueta MD Head CT 08/18/16 0000 Signed Impressions: Service Date/Time: , August 18, 2016 19:33 - CONCLUSION: 1. No acute intracranial abnormality. 2. Chronic white matter changes. 3. Mild sinus disease. Donta Argueta MD Physical Exam GENERAL: awake and alert, not in respiratory distress. SKIN: Warm and dry. No generalized rash, no ecchymoses and no evidence of embolic lesions. HEAD: Atraumatic. Normocephalic. No temporal wasting, or tenderness. EYES: [place] conjunctiva. No petechia or hemorrhage. No scleral icterus. No injection or drainage. EARS, NOSE AND THROAT: Nose without bleeding or purulent nasal discharge. No sinus tenderness. Mucous membranes pink and moist. No oral lesions noted. No exudate. No oral thrush. NECK: Trachea midline. Supple and not tender, no meningeal signs CARDIOVASCULAR: Regular rate and rhythm. No murmurs, rubs or gallops heard RESPIRATORY: Clear to auscultation. Breath sounds equal bilaterally. No rales , wheezing or rhonchi. Decreased BS at bases ABDOMEN: Soft, non-tender, nondistended. Bowel sounds present and normoactive. No guarding. No rebound. No organomegaly. EXTREMITIES: No clubbing, cyanosis, or edema. Has contractures of BLE. No joint effusion. No calf tenderness. Well perfused and warm. NEUROLOGICAL: Awake and alert. Follows commands says "OK" to every question PSYCHIATRIC: Flat affect LINE: No evidence of infection : clear yellow urine Assessment & Plan Remarks IMPRESSION Sepsis on presentation - likeley UTI as the souce - abnormal UA, clx + for GD Ent Streptococcal and Enterococcal bacteremia - ? source? - 2 D echo negative for vegs Renal insufficiency - stable UTI, enterococcus RECOMMENDATION Follow repeat BC Stop Zosyn Stop Vanco IV Ampicillin If repeat BC negative, would give 2 weeks IV Abx I dont think [facility] will change our management on this patient, which is medical Rx If repeat BC positive will give longer course of Rx - 4 weeks - if (+) will repeat more BC, and will give 4 weeks from date of last (+) BC If repeat BC negative, will place PICC Once PICC in place, he can be D/C nack to SNF and complete his Rx Megan Moya MD August 23, 2016 10:20
[2016-08-23] MEDS: DOXAZOSIN MESYLATE 2 MG TAB PO SCH (13:16)
[2016-08-23] MEDS: AMPICILLIN INJ 2,000 MG in SODIUM CHLORIDE 0.9% INJ 100 ML IV SCH ×3 (13:17→23:41)
--- NOTE | 2016-08-23 13:45 | HHI.NPPN ---
Subjective History of Present Illness 81 year old with sepsis UTI ARF/ckd Review of Systems General Constitutional: Fatigue Objective Data Data 08/22/16 08/23/16 19:00 07:00 Intake Total 1199 ml 705 ml Output Total 550 ml 500 ml Balance 649 ml 205 ml Intake Oral 480 ml IV Total 719 ml 705 ml Output Urine Total 550 ml 500 ml # Bowel Movements 1 Vital Signs Date Time Temp Pulse Resp B/P Pulse Ox O2 Delivery O2 Flow Rate FiO2 08/23/16 08:53 55 08/23/16 08:32 97.7 59 20 147/73 97 08/23/16 04:00 96.4 55 18 166/89 96 08/23/16 00:30 158/88 08/23/16 00:00 97.0 70 20 169/110 96 08/22/16 20:35 78 08/22/16 20:00 97.8 88 22 158/89 98 08/22/16 16:20 98.2 84 22 178/84 96 -: 08/22/16 0703 08/22/16 0703 Physical Exam General Appearance: Well Developed Neck Neck Exam: Neck Supple Pulmonary Resp Exam: Clear Bilaterally, Breath Sounds Equal Cardiology CV Exam: Regular, Normal Sinus Rhythm Gastrointestinal/Abdomen GI Exam: Soft, Non-Tender, Bowel Sounds Present Extremeties Extremities Exam: No Edema Assessment/Plan Problem List: (1) CKD (chronic kidney disease) stage 3, GFR 30-59 ml/min Plan: Patient kidney ultrasound showed He has atrophic kidneys and most likely hypertensive nephrosclerosis without any overt proteinuria, his baseline creatinine is 1.3 He is being treated for urinary tract infection off vancomycin on Ampicillin strep Viridans in blood on Ampicillin I will follow as needed (2) UTI (urinary tract infection) Plan: Patient is treated with vancomycin and Zosyn (3) Dementia Plan: Baseline (4) Sepsis Plan: strep Viridans Problem Qualifiers (1) UTI (urinary tract infection): Qualified Code: N30.00 - Acute cystitis without hematuria (2) Dementia: Qualified Code: F03.90 - Dementia without behavioral disturbance, unspecified dementia type (3) Sepsis: Qualified Code: A41.9 - Sepsis, due to unspecified organism Jodi Rodriguez MD August 23, 2016 13:45
[2016-08-23] MEDS: ENOXAPARIN SODIUM 40 MG/0.4 ML SYRINGE SQ SCH (16:11)
--- NOTE | 2016-08-23 18:27 | HHI.PR ---
Subjective Remarks deferred entry - patient seen earlier at 9:45 am No major overnight events patient denies cp/sob Objective Vitals Vital Signs Date Time Temp Pulse Resp B/P Pulse Ox O2 Delivery O2 Flow Rate FiO2 08/23/16 12:00 96.4 70 18 183/78 100 08/23/16 08:53 55 08/23/16 08:32 97.7 59 20 147/73 97 08/23/16 04:00 96.4 55 18 166/89 96 08/23/16 00:30 158/88 08/23/16 00:00 97.0 70 20 169/110 96 08/22/16 20:35 78 08/22/16 20:00 97.8 88 22 158/89 98 I/O 08/22/16 08/22/16 08/22/16 08/23/16 08/23/16 08/23/16 07:00 15:00 23:00 07:00 15:00 23:00 Intake Total 547 ml 480 ml 1079 ml 345 ml 889 ml Output Total 650 ml 400 ml 650 ml Balance -103 ml 80 ml 429 ml 345 ml 889 ml Intake Oral 240 ml 480 ml IV Total 307 ml 1079 ml 345 ml 889 ml Output Urine Total 650 ml 400 ml 650 ml # Bowel Movements 1 Result Diagram: 08/22/16 0703 08/22/16 0703 Imaging Last Impressions Renal Ultrasound 08/19/16 0000 Signed Impressions: Service Date/Time: Friday, August 19, 2016 13:38 - CONCLUSION: 1. Mild medical renal disease. No hydronephrosis. Bladder unremarkable. Garfield Sánchez MD Chest X-Ray 08/18/16 1744 Signed Impressions: Service Date/Time: July 18:26 - CONCLUSION: Consolidation and effusion at the left lung base. Donta Argueta MD Head CT 08/18/16 0000 Signed Impressions: Service Date/Time: July 19:33 - CONCLUSION: 1. No acute intracranial abnormality. 2. Chronic white matter changes. 3. Mild sinus disease. Donta Argueta MD Objective Remarks GENERAL: This is a well-nourished, well-developed patient, confused unable to provide meaningful information SKIN: No rashes, ecchymoses or lesions. Cool and dry. HEAD: Atraumatic. Normocephalic. No temporal or scalp tenderness. EYES: Extraocular motions intact. No scleral icterus. No injection or drainage. Enucleated right eye CARDIOVASCULAR: Tachycardic without murmurs, gallops, or rubs. RESPIRATORY: Clear to auscultation. Poor inspiratory effort GASTROINTESTINAL: Abdomen soft, non-tender, nondistended. MUSCULOSKELETAL: Extremities without clubbing, cyanosis, or edema. No joint tenderness, effusion, or edema noted. No calf tenderness. Negative Homans sign bilaterally. Generalized muscle atrophy NEUROLOGICAL: Awake and alert. Oriented to person only no focal deficits appreciated. Motor and sensory grossly within normal limits. 3 out of 5 muscle strength in all muscle groups. Normal speech. Procedures none Medications and IVs Current Medications Medications (Trade) Dose Ordered Sig/Nicole Route Start Time Stop Time Status Last Admin (NS Flush) 2 ml UNSCH PRN IV FLUSH 08/18/16 20:15 (NS Flush) 2 ml BID IV FLUSH 08/18/16 21:00 08/22/16 21:40 (Narcan Inj) 0.4 mg UNSCH PRN IV 08/18/16 20:15 (Ecotrin Ec) 81 mg DAILY PO 08/19/16 09:00 08/23/16 09:43 (Dulcolax Supp) 10 mg DAILY PRN RECTAL 08/18/16 21:45 (Ativan) 0.5 mg Q6H PRN PO 08/18/16 21:45 (SEROquel) 25 mg TID PO 08/19/16 09:00 08/23/16 18:31 (Ultram) 50 mg BID PO 08/19/16 09:00 08/23/16 09:43 Patient Own Medication PT OWN MED: NUEDE... BID PO 08/19/16 09:00 Hold (Theragran) 1 tab DAILY PO 08/19/16 09:00 08/23/16 09:43 (Lovenox Inj) 40 mg Q24H SQ 08/20/16 16:00 08/23/16 16:11 (Prinivil) 20 mg BID PO 08/21/16 21:00 08/23/16 09:43 Clonidine 0.1 mg 0.1 mg Q6H PRN PO 08/21/16 11:45 08/23/16 16:11 (NS 1000 ml Inj) 1,000 ml @ 42 mls/hr [id number] IV 08/21/16 12:00 08/23/16 06:21 Doxazosin Mesylate 2 mg 2 mg DAILY PO 08/23/16 10:00 08/23/16 13:16 (Ampicillin Inj/ NS Inj) 100 ml @ 400 mls/hr Q6H IV 08/23/16 11:00 08/23/16 18:31 A/P Problem List: (1) Sepsis ICD Code: A41.9 Status: Resolved (2) UTI (urinary tract infection) ICD Code: N39.0 Status: Acute (3) LLL pneumonia ICD Code: J18.1 Status: Acute (4) MARCIA (acute kidney injury) ICD Code: N17.9 Status: Acute (5) Dementia ICD Code: F03.90 Status: Chronic (6) Encephalopathy acute ICD Code: G93.40 Status: Resolved (7) CKD (chronic kidney disease) stage 3, GFR 30-59 ml/min ICD Code: N18.3 Status: Acute (8) Uncontrolled hypertension ICD Code: I10 Status: Acute Plan: BP still elevated and uncontrolled. Continue lisinorpil 20 mg po BID. Will start patient on Cardura 2 mg po daily. Continue to monitor vital signs. Assessment and Plan (1) Sepsis Plan: Present on admission. Poss aspiration since patient had nausea and vomiting in SNF vs [facility] Continue IV antibiotics as per ID recommendations - Iv Vancomycin and Iv Zosyn Blood cultures - (+) gram-positive cocci -infectious disease consulted Continue to follow up blood cultures Urine culture growing group D enterococcus. Likely UTI the source as per ID. (2) UTI (urinary tract infection) Plan: Urine culture growing group D enterococcus. Follow-up ID recommendations. (3) LLL pneumonia Plan: As shown on chest x-ray above. Continue broad-spectrum IV antibiotics as above. Continue supplemental oxygen to keep oxygen saturation 100%. Patient has a good oxygen saturation on room air (4) MARCIA (acute kidney injury) Plan: History of present illness on possible CKD stage III with baseline creatinine of 1.3 upon review of records. Initially creatinine worsening despite on being on Iv fluids. Continue IV fluids for now. Renal ultrasound showed medical renal disease. Suspect ATN from sepsis and hypotension. Avoid nephrotoxins. Garcia catheter inserted for low urine output. nephrology consulted - appreciate recommendations 08/[address] Discontinue garcia catheter and place condom catheter, patient has a good urine output and creatinine is trending down. Continue to monitor BUN and creatinine, monitor strict I's and O's, avoid nephrotoxins. (5) Dementia Plan: Seems stable. Continue home medications. (6) Encephalopathy acute Plan: Patient presented with confusion. Initially difficult to know given the patient's history of dementia if patient was at its baseline. However patient today's more awake and more responsive, answering to questions. Encephalopathy likely secondary to sepsis, secondary to pneumonia and gram- positive bacteremia. Continue to monitor neurological status. Encephalopathy seems to have resolved, patient awake and alert - seems to be at baseline. DVT prophylaxis: SCD's, Lovenox SQ Discharge Planning Continue to monitor in the medical floor. Discharge pending ID clearance. Problem Qualifiers (1) Sepsis: Qualified Code: A41.9 - Sepsis, due to unspecified organism (2) UTI (urinary tract infection): Qualified Code: N30.00 - Acute cystitis without hematuria (3) LLL pneumonia: Qualified Code: J69.0 - Aspiration pneumonia of left lower lobe due to gastric secretions (4) Dementia: Qualified Code: F03.90 - Dementia without behavioral disturbance, unspecified dementia type Satinder Beebe MD August 23, 2016 18:27
[2016-08-24] VITALS: BP 132/91; PULSE 73; RESP 18; TEMP 97.2; O2SAT 97
[2016-08-24 05:25] VITALS: BP 143/90; PULSE 81; RESP 18; TEMP 97.4; O2SAT 97
[2016-08-24] MEDS: AMPICILLIN INJ 2,000 MG in SODIUM CHLORIDE 0.9% INJ 100 ML IV SCH (05:40)
[2016-08-24] MEDS: SODIUM CHLOR 0.9% 1000 ML INJ 1,000 ML IV SCH (05:44)
[2016-08-24 07:50] VITALS: BP 164/98; PULSE 77; RESP 20; TEMP 97.4; O2SAT 95
[2016-08-24 08:26] VITALS: PULSE 82
[2016-08-24] MEDS: traMADol HCL 50 MG TAB PO SCH (09:35)
[2016-08-24] MEDS: DOXAZOSIN MESYLATE 2 MG TAB PO SCH (09:35)
[2016-08-24] MEDS: ASPIRIN EC 81 MG TABEC PO SCH (09:35)
[2016-08-24] MEDS: MULTIVITAMIN TAB PO SCH (09:35)
[2016-08-24] MEDS: QUEtiapine FUMARATE 25 MG TAB PO SCH ×3 (09:35→17:44)
[2016-08-24] MEDS: SODIUM CHLORIDE 0.9% FLUSH 10 ML FLUSH IV FLUSH SCH (09:35)
[2016-08-24] MEDS: LISINOPRIL 20 MG TAB PO SCH (09:35)
--- NOTE | 2016-08-24 10:20 | HHI.IDPN ---
Subjective Subjective Remarks Pt is a poor historian Patient is a 81-year-old male,presented with vomiting and febrile. Blood clx + for Enterococcus and Strep viridans, urine clx also enterococcus Notes reviewed D/W RN Temps ok No new (+) BC Echo has mild TR. AV and MV not well visualized WBC nl Creatinine slight worse compared to admission Antibiotics Ampicillin Past Medical History Pseudobulbar affective disorder Schizophrenia Dementia CAD Past Surgical History Appendectomy Allergies: Coded Allergies: No Known Allergies (Verified , 06/12/14) Objective . Vital Signs Date Time Temp Pulse Resp B/P Pulse Ox O2 Delivery O2 Flow Rate FiO2 08/24/16 07:50 97.4 77 20 164/98 95 08/24/16 05:25 97.4 81 18 143/90 97 08/24/16 00:00 97.2 73 18 132/91 97 08/23/16 20:04 81 08/23/16 20:00 97.1 70 18 151/91 97 08/23/16 18:50 97.1 72 16 144/86 98 Manual Cuff/Auscultation 08/23/16 12:00 96.4 70 18 183/78 100 08/23/16 08/23/16 08/24/16 14:59 22:59 06:59 Intake Total 1129 ml Output Total 600 ml 400 ml Balance 529 ml -400 ml Intake Oral 240 ml IV Total 889 ml Output Urine Total 600 ml 400 ml # Voids 2 # Bowel Movements 1 Imaging Last Impressions Renal Ultrasound 08/19/16 0000 Signed Impressions: Service Date/Time: Friday, August 19, 2016 13:38 - CONCLUSION: 1. Mild medical renal disease. No hydronephrosis. Bladder unremarkable. Garfield Sánchez MD Chest X-Ray 08/18/16 1744 Signed Impressions: Service Date/Time: July 18:26 - CONCLUSION: Consolidation and effusion at the left lung base. Donta Argueta MD Head CT 08/18/16 0000 Signed Impressions: Service Date/Time: July 19:33 - CONCLUSION: 1. No acute intracranial abnormality. 2. Chronic white matter changes. 3. Mild sinus disease. Donta Argueta MD Physical Exam GENERAL: awake and alert, not in respiratory distress. SKIN: Warm and dry. No generalized rash, no ecchymoses and no evidence of embolic lesions. HEAD: Atraumatic. Normocephalic. No temporal wasting, or tenderness. EYES: [place] conjunctiva. No petechia or hemorrhage. No scleral icterus. No injection or drainage. EARS, NOSE AND THROAT: Nose without bleeding or purulent nasal discharge. No sinus tenderness. Mucous membranes pink and moist. No oral lesions noted. No exudate. No oral thrush. NECK: Trachea midline. Supple and not tender, no meningeal signs CARDIOVASCULAR: Regular rate and rhythm. No murmurs, rubs or gallops heard RESPIRATORY: Clear to auscultation. Breath sounds equal bilaterally. No rales , wheezing or rhonchi. Decreased BS at bases ABDOMEN: Soft, non-tender, nondistended. Bowel sounds present and normoactive. No guarding. No rebound. No organomegaly. EXTREMITIES: No clubbing, cyanosis, or edema. Has contractures of BLE. No joint effusion. No calf tenderness. Well perfused and warm. NEUROLOGICAL: Awake and alert. Follows commands says "OK" to every question PSYCHIATRIC: Flat affect LINE: No evidence of infection : clear yellow urine Assessment & Plan Remarks IMPRESSION Sepsis on presentation - likely UTI as the souce - abnormal UA, clx + for GD Ent Streptococcal and Enterococcal bacteremia - ? source? - 2 D echo negative for vegs Renal insufficiency - stable UTI, enterococcus RECOMMENDATION Follow repeat BC IV Ampicillin Cleared with renal, [facility] for PICC Will ask CM to verify with patient's SNF if they can do q8H Ampicillin x 14 days [address] PICC in place and [facility] today I will fill out Abx form D/W Megan Sahu MD August 24, 2016 10:20
--- NOTE | 2016-08-24 10:23 | HHI.FF ---
Infusion Therapy Location of Infusion Therapy: [facility] Infusion Therapy Order Patient Information Patient Weight 64.3 kg Diagnosis: Diagnosis Enterococcal and Strep viridans bacteremia, UTI Coded Allergies: No Known Allergies (Verified , 06/12/14) Administer Medication Ampicillin 2 grams IV q 8 hours Stop Treatment: Sep 02, 2016 Additional Information Venous access: PICC Line Additional Instructions [x] Peripheral flush and dressing changes per protocol [x] Implanted port and central pipeline gang supervisor: * Implanted port: 10 ml Normal Saline followed by 5 ml Heparin 100 units/ml Heparin flush after each use and monthly to maintain. [] May leave port accessed during therapy. [] May leave peripheral site accessed for duration of therapy. [x] If patient has SOB or respiratory distress, check oxygen saturation. If less than 90% or clinical signs of respiratory distress, administer oxygen at 2 L/min. via nasal cannula and notify physician. [x] Anaphylaxis/Reaction orders: * Stop infusion. * Keep IV line open with saline flush. * Notify physician. * Monitor vital signs every 15 minutes until symptoms resolve. * Check Oxygen saturation; Oxygen at 2 L/min. via nasal cannula if less than 90% or clinical signs of respiratory distress. * Administer diphenhydramine (Benadryl) 25 mg IV STAT, (unless patient has received as pre-med). May repeat once, if necessary. * Solu-Cortef 250 mg IVP over 30-60 seconds, use 100 mg vials for each dissolution. * Epinephrine (1mg/1 ml) 0.3 mg subcutaneously or IVP now with any signs of respiratory distress. * Check with physician for new additional pre-med orders if patient is re- challenged or re-treated. [x] May remove PICC line when treatment complete, after confirming with Physician. [x] If the patient is admitted to the hospital, the ED, or transferred via [facility] , complete transfer form including medication reconciliation order sheet. Laboratory Tests Weekly Labs: CBC w/diff, Creatinine (labs on Tuesdays while on IV Abx, copy to me please) Megan Moya MD August 24, 2016 10:23
[2016-08-24 11:57] VITALS: BP 145/81; PULSE 75; RESP 20; TEMP 97; O2SAT 97
[2016-08-24] MEDS ORDERED: AMPICILLIN INJ 2,000 MG in SODIUM CHLORIDE 0.9% INJ 100 ML IV SCH (13:00)
--- NOTE | 2016-08-24 14:14 | RADRPT ---
EXAM DATE/TIME: 08/24/2016 13:36 [place] COMPARISON: CHEST SINGLE AP, February 13, 2016, 18:32. CHEST SINGLE AP, March 02, 2014, 17:52. CHEST SINGLE AP, August 18, 2016, 18:26. INDICATIONS : Post right side picc line placement. MEDICAL HISTORY : Hypertension. dementia SURGICAL HISTORY : None. ENCOUNTER: Initial ACUITY: 4 - 6 days PAIN SCORE: Non-responsive. LOCATION: Bilateral chest FINDINGS: Single AP view of the chest. Confluent opacity at the left lung base unchanged. Likely small left ple ural effusion. Right-sided PICC line now in place with the tip in the region of the proximal SVC. No evidence of pneumothorax. CONCLUSION: Right-sided PICC line in place with tip in the region of the proximal SVC. Danny Dean MD on August 24, 2016 at 14:10 Board Certified Radiologist. This report was verified electronically.
[2016-08-24] MEDS ORDERED: SODIUM CHLORIDE 0.9% FLUSH 10 ML FLUSH IV FLUSH PRN (14:15)
[2016-08-24] MEDS ORDERED: CARD2TAB PO (14:58)
[2016-08-24] MEDS ORDERED: LISI-515 PO (14:58)
[2016-08-24 15:50] VITALS: BP 166/97; PULSE 129; RESP 20; TEMP 96; O2SAT 93
[2016-08-24] MEDS: ENOXAPARIN SODIUM 40 MG/0.4 ML SYRINGE SQ SCH (16:30)
--- NOTE | 2016-08-24 17:08 | HHI.DS ---
Discharge Summary Admission Date August 18, 2016 at 20:15 Discharge Date: August 24, 2016 Admitting Diagnosis Sepsis secondary to pneumonia (1) Sepsis ICD Code: A41.9 Diagnosis: Principal (2) UTI (urinary tract infection) ICD Code: N39.0 Diagnosis: Principal (3) LLL pneumonia ICD Code: J18.1 Diagnosis: Principal (4) MARCIA (acute kidney injury) ICD Code: N17.9 Diagnosis: Principal (5) Dementia ICD Code: F03.90 Diagnosis: Secondary (6) Encephalopathy acute ICD Code: G93.40 Diagnosis: Principal (7) CKD (chronic kidney disease) stage 3, GFR 30-59 ml/min ICD Code: N18.3 Diagnosis: Secondary (8) Uncontrolled hypertension ICD Code: I10 Diagnosis: Principal Procedures none Brief History - From Admission Written by Isabel Lynn, acting as scribe for Dr. Martin on 08/18/16 at 21: 53. Patient is an 81 year old male patient with a past medical history which includes: Pseudo-bulbar affective disorder, schizophrenia, dementia, CAD. Is unable to provide meaningful information therefore information gathered from patient as well as prior documentation and review of residential facility documentation. Appears that patient was sent from residential facility due to concerns of vomiting and fever. Patient reports, "I'm fine," and offers no complaints at this time. Patient is a poor historian denies chest pain shortness of breath nausea vomiting diarrhea constipation fevers or chills. Patient walks spontaneously during review of systems. She arrived to the emergency department temperature is 102.8 heart rate of 1:30 sinus tachycardia, blood pressure 175/93 pulse oximetry 95% on room air Chest x-ray reviewed and reveals: Consolidation and effusion at the left lung base White blood cell count 9.2 with 84% neutrophils lactic acid 2.9 BUN 20 creatinine 1.47 estimated GFR 56 with ammonia 34 CBC/BMP: 08/22/16 0703 08/22/16 0703 Significant Findings Laboratory Tests Test 08/22/16 07:03 Hemoglobin 12.4 GM/DL (13.0-17.0) Hematocrit 38.2 % (39.0-51.0) Mean Corpuscular Hemoglobin 26.4 PG (27.0-34.0) Potassium Level 3.4 MEQ/L (3.5-5.1) Chloride Level 109 MEQ/L (98-107) Creatinine 1.64 MG/DL (0.60-1.30) Estimat Glomerular Filtration 49 ML/MIN (>89) Rate Imaging Last Impressions Chest X-Ray 08/24/16 0000 Signed Impressions: Service Date/Time: Wednesday, August 24, 2016 13:36 - CONCLUSION: Right-sided PICC line in place with tip in the region of the proximal SVC. Danny Dean MD Renal Ultrasound 08/19/16 0000 Signed Impressions: Service Date/Time: Friday, August 19, 2016 13:38 - CONCLUSION: 1. Mild medical renal disease. No hydronephrosis. Bladder unremarkable. Garfield Sánchez MD Head CT 08/18/16 0000 Signed Impressions: Service Date/Time: July 19:33 - CONCLUSION: 1. No acute intracranial abnormality. 2. Chronic white matter changes. 3. Mild sinus disease. Donta Argueta MD PE at Discharge GENERAL: This is a well-nourished, well-developed patient, confused unable to provide meaningful information SKIN: No rashes, ecchymoses or lesions. Cool and dry. HEAD: Atraumatic. Normocephalic. No temporal or scalp tenderness. EYES: Extraocular motions intact. No scleral icterus. No injection or drainage. Enucleated right eye CARDIOVASCULAR: Tachycardic without murmurs, gallops, or rubs. RESPIRATORY: Clear to auscultation. Poor inspiratory effort GASTROINTESTINAL: Abdomen soft, non-tender, nondistended. MUSCULOSKELETAL: Extremities without clubbing, cyanosis, or edema. No joint tenderness, effusion, or edema noted. No calf tenderness. Negative Homans sign bilaterally. Generalized muscle atrophy NEUROLOGICAL: Awake and alert. Oriented to person only no focal deficits appreciated. Motor and sensory grossly within normal limits. 3 out of 5 muscle strength in all muscle groups. Normal speech. Pt update on day of discharge No major overnight events, denies cp/sob. Hospital Course (1) Septic shock Septic shock now resolved. Present admission. Due to infectious colitis. Patient was admitted to the intensive care unit and treated with vasopressors and IV fluids, placed on IV antibiotics- vancomycin and IV Zosyn Home antihypertensive medications held on admission. 2-D echocardiogram revealed EF around 60%. Mild MR. MADINA 3 1 mmHg. Blood cultures negative. (2) Diarrhea CT abdomen and pelvis revealed pericholecystic fluid with wall thickening. Gallbladder ultrasound revealed cholelithiasis, gallbladder wall thickening with trace amount of air in common bile duct. Patient is asymptomatic for cholecystitis. This was discussed by the environmental research scientist with infectious disease specialist. Lipase negative. Liver function tests followed. Stool studies including Cryptosporidium, Giardia, enteric path and rotavirus negative Diarrhea likely due to viral gastroenteritis, now resolved. 08/22 Patient had reportedly 6 episodes of diarrhea last night - none so far. 08/23 C Diff PCR negative. Start Lactobacillus acidophilus. Will Rx immodium. (3) Superficial laceration of face wound care. Healing properly. (4) Hypotension Resolved after IV fluid administration of vasopressors and supportive measures as well as IV antibiotics. (5) DVT (deep venous thrombosis) As shown on Doppler ultrasound above, the patient was placed on heparin drip. Case was discussed with the patient's daughter. Since the patient has had multiple falls recently and has difficulty ambulating he was decided to place an IVC filter. The patient is status post IVC filter placement placed on without major complications. (6) Leukocytosis Due to sepsis, secondary to suspected bile gastroenteritis. Continue to monitor CBC with differential. 08/19 WBC trended up slightly from 12K to 15 K, however patient is afebrile, has stable vital signs and diarrhea has resolved. Leukocytosis could be reactive distress after filter placement. Continue to monitor WBC. 08/23 Leukocytosis trended down - now 11k (7) Anemia Hemoglobin seemed to be trending down initially from 12-11 and then to 10. However hemoglobin has been stable at 10 for the past 3 days. Started ASA 81 mg daily. (8) Hypokalemia Replaced orally. Continue to monitor BMP and replace as needed. GI prophylaxis: Place on PPI. DVT prophylaxis: Will place on heparin subcutaneous while in the hospital. Pt Condition on Discharge: Stable Discharge Disposition: Discharge to SNF Discharge Time: > 30 minutes Discharge Instructions DIET: Follow Instructions for: Heart Healthy Diet Speech Therapy-Diet Recommends: Soft Activities you can perform: Continue Bedrest Follow up Referrals: PCP Follow-up New Medications: Doxazosin (Cardura) 2 Mg Tab 2 MG PO DAILY Blood Pressure Management #31 TAB Lisinopril (Lisinopril) 20 Mg Tab 20 MG PO BID Blood Pressure Management #62 TAB Continued Medications: Aspirin DR (Aspirin 81) 81 Mg Tabdr 81 MG PO DAILY Ref 0 TAB Bisacodyl Supp (Dulcolax Supp) 10 Mg Supp 10 MG RECTAL DAILY PRN CONSTIPATION #12 Ref 0 SUPP Clonidine (Clonidine) 0.1 Mg Tab 0.1 MG PO BID PRN DBP>100 #60 Ref 0 TAB Dextromethorphan HBr-Quinidine (Nuedexta 20-10 mg) 1 Cap Cap 1 CAP PO BID Pseudobulbar Affect #60 Ref 0 CAP Lorazepam (Ativan) 0.5 Mg Tab 0.5 MG PO Q6H PRN ANXIETY AND/OR AGITATION Ref 0 TAB Multiple Vitamin (Multiple Vitamin) 1 Tab 1 TAB PO DAILY Nutritional Supplement Ref 0 TAB Quetiapine (Quetiapine) 25 Mg Tab 25 MG PO TID SCHIZOPHRENIA #60 Ref 0 TAB Tramadol (Tramadol) 50 Mg Tab 50 MG PO BID Pain Management Ref 0 TAB Discontinued Medications: Lisinopril (Prinivil) 10 Mg Tab 10 MG PO BID Blood Pressure Management #30 Ref 0 TAB Magnesium Hydroxide Concentrate Liq (Milk of Magnesia Concentrate Liq) 1,200 Mg/ 5 Ml Susp 30 ML PO DAILY PRN CONSTIPATION #1 BOTTLE Satinder Beebe MD August 24, 2016 17:08
[2016-08-24] MEDS: cloNIDine HCL 0.1 MG TAB PO PRN (18:20)
[2016-08-25] MEDS ORDERED: SODIUM CHLORIDE 0.9% FLUSH 10 ML FLUSH IV FLUSH SCH (09:00)
--- NOTE | 2016-08-30 13:31 | PQ ---
Physician Query Response Document PATIENT: JORGE LUGO : 1935 ADMIT DATE: 08/18/2016 8:15 PM DISCH DATE: 08/24/2016 7:21 PM RESPONDING PROVIDER #: [email or web address] QUERY TEXT: Pneumonia Specificity Pneumonia is documented in the Medical Record. Please specify the type of pneumonia and the causative organism (includes probable or suspected) Such as: Type: -- Aspiration pneumonia (please also specify the aspirate) - [place] (please specify cause) - Please indicate if the aspiration is postprocedure -- Bacterial (please document suspected or probable organism) -- Bronchopneumonia (please document suspected or probable organism) -- Interstitial pneumonia -- Organizing pneumonia / BOOP -- Pneumonia with influenza, meredith flu, or H1N1 flu -- RSV -- Tuberculosis, pulmonary -- Viral -- Other, please specify If you have any additional questions/comments and/or concerns, please do not hesitate to reach out to the CDI/Coding Hotline, Ext. [phone]. The patient's Clinical Indicators include: Diagnosis on both H Progress Note 08/19/16 documents: Plan: Present on admission. Poss aspiration since patient had nausea and vomiting in SNF vs [facility] Continue IV antibiotics - Iv Vancomycin and Iv Zosyn Blood cultures - (+) gram-positive cocci - consult infectious disease. Continue to follow up blood cultures Progress Note 08/23/16: Plan: Present on admission. Poss aspiration since patient had nausea and vomiting in SNF vs [facility] Continue IV antibiotics as per ID recommendations - Iv Vancomycin and Iv Zosyn Blood cultures - (+) gram-positive cocci -infectious disease consulted Continue to follow up blood cultures Urine culture growing group D enterococcus. Likely UTI the source as per ID. PICC line was placed prior to discharge - Progress Note 08/24/16 from ID real estate consultant: RECOMMENDATION : Follow repeat BC IV Ampicillin Cleared with renal, ok for PICC Will ask CM to verify with patient's SNF if they can do q8H Ampicillin x 14 days Once PICC in place and arrangements made with SNF, ok for D/C today I will fill out Abx form Query created by: Deanna Flanagan on 08/26/2016 11:57 AM RESPONSE TEXT: Suspected aspiration pneumonia from gastric secretions due to vomiting since patient presented with v omiting. QUERY TEXT: Clinical Significance The diagnosis documented below requires documentation to state the clinical significance: low K (repl aced) Please respond and also state in your next progress note whether the condition is: -- Clinically insignificant -- Clinically significant, and please also state why it is clinically significant -- Unable to determine clinical significance -- Other, please specify If you have any additional questions/comments and/or concerns, please do not hesitate to reach out to the [employer] Hotline, Ext. [phone]. The patient's Clinical Indicators include: Progress note of 08/22/16 ([facility]) documents: K low replaced Query created by: Deanna Flanagan on 08/26/2016 12:44 PM RESPONSE TEXT: Clinically significant as patient had MARCIA and decreased GFR Electronically signed by: Satinder Velazquez MD 08/30/2016 1:27 PM
== END 2016-08-24 19:21 | DRG 871 ==
LOC: NEPE 17:28 → NEDA 20:15 → HOCB 22:00
PROVIDERS: ADMIT Hospitalist; ATTEND Hospitalist
PROC: 02HV33Z Insertion of Infusion Device into Superior Vena Cava, Percutaneous Approach (ICD-10-PCS; principal; 2016-08-24)
PROC: B548ZZA Ultrasonography of Superior Vena Cava, Guidance (ICD-10-PCS; 2016-08-24)
DX: A41.9 Sepsis, unspecified organism (principal); G93.40 Encephalopathy, unspecified; J69.0 Pneumonitis due to inhalation of food and vomit; N17.9 Acute kidney failure, unspecified; N39.0 Urinary tract infection, site not specified; B95.2 Enterococcus as the cause of diseases classified elsewhere; F03.90 Unspecified dementia, unspecified severity, without behavioral disturbance, psychotic disturbance, mood disturbance, and anxiety; I12.9 Hypertensive chronic kidney disease with stage 1 through stage 4 chronic kidney disease, or unspecified chronic kidney disease; N18.3 Chronic kidney disease, stage 3 (moderate); N26.1 Atrophy of kidney (terminal); F20.9 Schizophrenia, unspecified; E87.6 Hypokalemia; I25.10 Atherosclerotic heart disease of native coronary artery without angina pectoris; F39 Unspecified mood [affective] disorder; F48.2 Pseudobulbar affect; H54.41 Blindness, right eye, normal vision left eye
CPT/HCPCS: 36569; 70450; 71010; 76775; 76937; 80048; 80053; 80202; 81001; 82140; 82550; 83605; 83735; 84100; 84484; 85025; 85027; 85610; 85730; 87040; 87077; 87086; 87149; 87186; 87205; 93005; 93306; 96374; 96375; J0290; J1650; J2405; J2543; J3370; J7030; J7040; J7050

== ENCOUNTER 2017-06-28 06:55 | Emergency (ER) | payer MEDICARE, OTHER ==
[~2017-06-28] VITALS: Ht 177.8 cm; Wt 75.0 kg
[~2017-06-28 06:55] MED LIST changes: -AMLO10TA2 PO; -ASPI-110 PO; +ASPI1TAB57 PO; +CARD2TAB PO; +CLON0.1T PO; -LEXA10TA PO; +LISI-515 PO; -MILK2400 PO; -MULT1TAB84 PO; +MULTTAB67 PO; +NUED20CA PO; -PRIN10TA PO; -PROC10TA PO; +TRAM50TA PO; -ULTR50TA5 PO
[2017-06-28 07:02] VITALS: BP 178/93; PULSE 84; RESP 25; TEMP 97.8; O2SAT 94
--- NOTE | 2017-06-28 07:20 | PD ---
HPI Chief Complaint: Fall Time Seen by Provider: 07:10 Travel History International Travel<30 days: No Contact w/Intl Traveler<30days: No Traveled to known affect area: No History of Present Illness HPI Patient [facility], where he apparently had an unwitnessed fall off his wheelchair. Per chart review patient is not on any anticoagulants. Patient is brought in by EMS with a contusion on his forehead. Patient is not very verbally engage, this may be his baseline, however I am unable to obtain any historical details from patient. All information obtained through EMS nursing and chart review. Per rehab staff he is baseline GCS is 14, normally confused sometimes follows directions Per chart review PCP is Dr. Leon Chaney No known drug allergies Past medical history significant for schizophrenia, hypertension, vascular dementia, anxiety disorder, dementia otherwise, constipation, nutritional deficiency PFSH Past Medical History Arthritis: Yes Asthma: No Anxiety: Yes Depression: Yes Heart Rhythm Problems: No Cardiovascular Problems: No High Cholesterol: No Chest Pain: No Congestive Heart Failure: No COPD: No Cerebrovascular Accident: No Dementia: Yes Gastrointestinal Disorders: Yes GERD: No Genitourinary: No Headaches: No Hepatitis: No Hiatal Hernia: No Hypertension: Yes Kidney Stones: No Musculoskeletal: Yes Neurologic: No Reproductive: No Respiratory: No Migraines: No Myocardial Infarction: No Renal Failure: No Seizures: No Sleep Apnea: No Ulcer: No Past Surgical History Abdominal Surgery: Yes (APPENDECTOMY) Appendectomy: Yes Cardiac Surgery: No Cholecystectomy: No Ear Surgery: No Endocrine Surgery: No Eye Surgery: No Genitourinary Surgery: No Gynecologic Surgery: No Oral Surgery: No Thoracic Surgery: No Other Surgery: Yes Social History Alcohol Use: No Tobacco Use: No Substance Use: No Allergies-Medications (Allergen,Severity, Reaction): Coded Allergies: No Known Allergies (Verified , 06/12/14) Reported Meds & Prescriptions Reported Meds & Active Scripts Active Cardura (Doxazosin Mesylate) 2 Mg Tab 2 Mg PO DAILY Lisinopril 20 Mg Tab 20 Mg PO BID Reported Neurontin (Gabapentin) 100 Mg Cap 100 Mg PO BID Tramadol (Tramadol HCl) 50 Mg Tab 50 Mg PO BID Multiple Vitamin 1 Tab 1 Tab PO DAILY Nuedexta 20-10 mg (Dextromethorphan HBr-Quinidine) 1 Cap Cap 1 Cap PO BID Clonidine (Clonidine HCl) 0.1 Mg Tab 0.1 Mg PO BID PRN Quetiapine (Quetiapine Fumarate) 25 Mg Tab 50 Mg PO HS Dulcolax Supp (Bisacodyl) 10 Mg Supp 10 Mg RECTAL DAILY PRN Aspirin 81 (Aspirin) 81 Mg Tabdr 81 Mg PO DAILY Ativan (Lorazepam) 0.5 Mg Tab 0.5 Mg PO Q6H PRN Review of Systems ROS Limitations: Altered Mental Status General / Constitutional: No: Fever Eyes: No: Visual changes HENT: No: Headaches Cardiovascular: No: Chest Pain or Discomfort Respiratory: No: Shortness of Breath Gastrointestinal: No: Abdominal Pain Genitourinary: No: Dysuria Musculoskeletal: No: Pain Skin: Positive Other (Forehead contusion), No Rash Neurologic: No: Weakness Psychiatric: No: Depression Endocrine: No: Polydipsia Hematologic/Lymphatic: No: Easy Bruising Physical Exam Exam Limitations: Clinical Condition, Altered Mental Status Narrative GENERAL: SKIN: Warm and dry. HEAD: 5 cm frontal contusion with a 2-1/2-3 cm laceration in the middle of it... normocephalic. EYES: Right eye enucleated, left eye has early cataract in the pupil, pupil is round and reactive to light. No scleral icterus. No injection or drainage. ENT: No nasal bleeding or discharge. Mucous membranes pink and moist. No hemotympanum NECK: Trachea midline. No JVD. CARDIOVASCULAR: Regular rate and rhythm. RESPIRATORY: No accessory muscle use. Clear to auscultation. Breath sounds equal bilaterally. GASTROINTESTINAL: Abdomen soft, non-tender, nondistended. MUSCULOSKELETAL: Extremities without clubbing, cyanosis, or edema. No obvious deformities. Patient has lower extremity contractures, flex at the hip NEUROLOGICAL: gcs 14, difficult to understand speech, bilateral upper extremities 4 out of 5 PSYCHIATRIC: Unable to assess Head 1 - Ecchymosis (5 cm contusion) 2 - Laceration (2.5 cm lac, superficial, no galea, no muscle layer involvement) Data Data Last Documented VS Vital Signs Date Time Temp Pulse Resp B/P (MAP) Pulse Ox O2 Delivery O2 Flow Rate FiO2 06/28/17 07:05 94 Room Air 06/28/17 07:02 97.8 84 25 178/93 (121) Orders Orders Basic Metabolic Panel (Bmp) (06/28/17 07:10) Complete Blood Count With Diff (06/28/17 07:10) Prothrombin Time / Inr (Pt) (06/28/17 07:10) Act Partial Throm Time (Ptt) (06/28/17 07:10) Urinalysis - C+S If Indicated (06/28/17 07:10) Ct Brain W/O Iv Contrast(Rout) (06/28/17 07:10) Ct Cerv Spine W/O Contrast (06/28/17 07:10) Electrocardiogram (06/28/17 07:10) Iv Access Insert/Monitor (06/28/17 07:10) Ecg Monitoring (06/28/17 07:10) Oximetry (06/28/17 07:10) Ckmb (Isoenzyme) Profile (06/28/17 07:10) Troponin I (06/28/17 07:10) B-Type Natriuretic Peptide (06/28/17 07:10) CKMB (06/28/17 07:15) CKMB% (06/28/17 07:15) Urine Culture (06/28/17 07:34) Ceftriaxone Inj (Rocephin Inj) (06/28/17 09:45) Labs Laboratory Tests Test 06/28/17 07:15 06/28/17 07:34 White Blood Count 9.3 TH/MM3 Red Blood Count 4.87 MIL/MM3 Hemoglobin 13.0 GM/DL Hematocrit 40.0 % Mean Corpuscular Volume 82.2 FL Mean Corpuscular Hemoglobin 26.7 PG Mean Corpuscular Hemoglobin Concent 32.4 % Red Cell Distribution Width 15.2 % Platelet Count 215 TH/MM3 Mean Platelet Volume 9.0 FL Neutrophils (%) (Auto) 50.0 % Lymphocytes (%) (Auto) 37.1 % Monocytes (%) (Auto) 6.3 % Eosinophils (%) (Auto) 5.5 % Basophils (%) (Auto) 1.1 % Neutrophils # (Auto) 4.7 TH/MM3 Lymphocytes # (Auto) 3.4 TH/MM3 Monocytes # (Auto) 0.6 TH/MM3 Eosinophils # (Auto) 0.5 TH/MM3 Basophils # (Auto) 0.1 TH/MM3 CBC Comment AUTO DIFF Differential Comment AUTO DIFF CONFIRMED Ovalocytes 1+ Prothrombin Time 11.8 SEC Prothromb Time International Ratio 1.2 RATIO Activated Partial Thromboplast Time 21.7 SEC Blood Urea Nitrogen 24 MG/DL Creatinine 1.79 MG/DL Random Glucose 82 MG/DL Calcium Level 8.8 MG/DL Sodium Level 144 MEQ/L Potassium Level 4.4 MEQ/L Chloride Level 112 MEQ/L Carbon Dioxide Level 24.4 MEQ/L Anion Gap 8 MEQ/L Estimat Glomerular Filtration Rate 45 ML/MIN Total Creatine Kinase 270 U/L Creatine Kinase MB 3.1 NG/ML Troponin I LESS THAN 0.02 NG/ML B-Type Natriuretic Peptide 123 PG/ML Urine Color YELLOW Urine Turbidity HAZY Urine pH 7.0 Urine Specific [place] 1.015 Urine Protein TRACE mg/dL Urine Glucose (UA) NEG mg/dL Urine Ketones NEG mg/dL Urine Occult Blood TRACE Urine Nitrite NEG Urine Bilirubin NEG Urine Urobilinogen LESS THAN 2.0 MG/DL Urine Leukocyte Esterase LARGE Urine RBC 4 /hpf Urine WBC 19 /hpf Urine Bacteria MANY /hpf Urine Hyaline Casts 3 /lpf Microscopic Urinalysis Comment CULTURE INDICATED MDM Medical Decision Making Medical Screen Exam Complete: Yes Emergency Medical Condition: Yes Medical Record Reviewed: Yes Differential Diagnosis Intracranial hemorrhage versus skull fracture versus neck injury versus scalp contusion versus mechanical fall versus anemia versus dehydration Narrative Course CBC shows no leukocytosis, no anemia, and normal platelet count, no left shift UA significant for UTI and will be given Rocephin IV 1 for the one-time treatment of UTI Coagulation profile is within normal limits Chemistry shows normal electrolytes, prerenal azotemia with a BUN of 24 creatinine 1.79 and GFR 45, negative cardiac enzymes. Beta natruretic peptide 123 which is negative CTA is reported by radiologist shows stable bilateral cortical atrophy and chronic white matter changes, no focal or acute intracranial hemorrhage CT cervical spine is read by radiologist shows degenerative disc disease throughout the cervical spine with loss of disc height at every cervical level. There is minimal grade 1 anterolisthesis of C2 on C3. Also multilevel facet hypertrophy, spinal canal appears to be adequate throughout. No acute fracture bony fusion bilaterally at C7-T1 Procedures Procedure Narrative LACERATION LOCATION: [-Mid forehead] LENGTH: [2.5 cm-] NUMBER OF STITCHES/DESI: [-Non-repaired with Dermabond] REPAIR: The area of the laceration was prepped with Betadine and sterilely draped. The laceration was infiltrated with [not applicable-]. The wound was copiously irrigated and explored without evidence of foreign body, tendon injury or neurovascular injury. The wound was closed using [-Dermabond]. This was a single layer repair. A sterile dressing was applied. The patient was advised to keep the dressing clean and dry. Patient tolerated the procedure well. Diagnosis Primary Impression: Frontal scalp hematoma Additional Impressions: Forehead laceration status post Dermabond repair UTI Archie Loera MD Jun 28, 2017 07:20
[2017-06-28 07:23] LABS: AUTOMATED NEUTROPHIL # 4.7 TH/MM3 (1.8-7.7); BASOPHIL # 0.1 TH/MM3 (0-0.2); BASOPHIL % 1.1 % (0.0-2.0); EOSINOPHIL # 0.5 TH/MM3 (0-0.4); EOSINOPHIL % 5.5 % (0.0-4.0); LYMPH % 37.1 % (9.0-44.0); LYMPHOCYTE # 3.4 TH/MM3 (1.0-4.8); MEAN CELL VOLUME 82.2 FL (80.0-100.0); MEAN CORPUSCULAR HEMOGLOBIN 26.7 PG (27.0-34.0); MEAN CORPUSCULAR HGB CONC 32.4 % (32.0-36.0); MONO % 6.3 % (0.0-8.0); MONOCYTE # 0.6 TH/MM3 (0-0.9); PLATELET COUNT 215 TH/MM3 (150-450); RED BLOOD COUNT 4.87 MIL/MM3 (4.50-5.90); RED CELL DISTRIBUTION WIDTH 15.2 % (11.6-17.2); WHITE BLOOD COUNT 9.3 TH/MM3 (4.0-11.0)
[2017-06-28 07:32] LABS: INTERNATIONAL NORMALIZED RATIO 1.2 RATIO; PROTHROMBIN TIME - PATIENT 11.8 SEC (9.8-11.6)
[2017-06-28 07:54] LABS: TROPONIN I LESS THAN 0.02 NG/ML (0.02-0.05)
[2017-06-28] MEDS ORDERED: NEUR100C PO (07:59)
[2017-06-28 08:12] LABS: BICARBONATE 24.4 MEQ/L (21.0-32.0); BLOOD UREA NITROGEN 24 MG/DL (7-18); CALCIUM 8.8 MG/DL (8.5-10.1); CHLORIDE 112 MEQ/L (98-107); CREATININE 1.79 MG/DL (0.60-1.30); GLOMERULAR FILTRATION RATE 45 ML/MIN (>89); GLUCOSE,RANDOM 82 MG/DL (74-106); SODIUM (NA) 144 MEQ/L (136-145)
[2017-06-28 08:12] LABS: BACTERIA, URINE MANY /hpf; BILIRUBIN, URINE NEG (NEG); BLOOD, URINE TRACE (NEG); GLUCOSE,URINE NEG (NEG); HYALINE CAST, URINE 3 /lpf (RARE); KETONE, URINE NEG (NEG); NITRITE,URINE NEG (NEG); URINE COLOR YELLOW (YELLW/STRAW); URINE LEUKOCYTE ESTERASE LARGE (NEG)
--- NOTE | 2017-06-28 08:12 | RADRPT ---
EXAM DATE/TIME: 06/28/2017 07:59 [facility] COMPARISON: CT BRAIN W/O CONTRAST, August 18, 2016, 19:33. INDICATIONS : Fell and hit forehead RADIATION DOSE: 36.02 CTDIvol (mGy) MEDICAL HISTORY : Hypertension. SURGICAL HISTORY : Appendectomy. ENCOUNTER: Initial ACUITY: 1 day PAIN SCALE: 4/10 LOCATION: cranial TECHNIQUE: Multiple contiguous axial images were obtained of the head. Using automated exposure control and adj ustment of the mA and/or kV according to patient size, radiation dose was kept as low as reasonably a chievable to obtain optimal diagnostic quality images. DICOM format image data is available electro nically for review and comparison. FINDINGS: CEREBRUM: The ventricles are normal for age. There is stable diffuse bilateral cortical atrophy and chronic whi te matter changes. No evidence of midline shift, mass lesion, hemorrhage or acute infarction. No ex tra-axial fluid collections are seen. No significant changes compared to the prior study. POSTERIOR FOSSA: The cerebellum and brainstem are intact. The 4th ventricle is midline. The cerebellopontine angle i s unremarkable. EXTRACRANIAL: The visualized portion of the orbits is intact. Focal soft tissue swelling over the right forehead. SKULL: The calvaria is intact. No evidence of skull fracture. CONCLUSION: 1. Stable bilateral cortical atrophy and chronic white matter changes. 2. No focal or acute intracranial hemorrhage. 3. Focal soft tissue swelling over the right forehead. Willie Shepherd MD on June 28, 2017 at 8:08 Board Certified Radiologist. This report was verified electronically.
[2017-06-28 08:16] LABS: OVALOCYTES 1+ (NORMAL)
[2017-06-28] MEDS ORDERED: cefTRIAXone INJ 1,000 MG in SODIUM CHLORIDE 0.9% INJ 100 ML IV ONE (09:45)
--- NOTE | 2017-06-28 09:53 | RADRPT ---
EXAM DATE/TIME: 06/28/2017 07:59 [facility] COMPARISON: No previous studies available for comparison. INDICATIONS : Fell and hit forehead RADIATION DOSE: 21.04 CTDIvol (mGy) MEDICAL HISTORY : Hypertension. SURGICAL HISTORY : Appendectomy. ENCOUNTER: Initial ACUITY: 1 day PAIN SCALE: 3/10 LOCATION: neck TECHNIQUE: Volumetric scanning of the cervical spine was performed. Multiplanar reconstructions in the sagittal, coronal and oblique axial planes were performed. Using automated exposure control and adjustment o f the mA and/or kV according to patient size, radiation dose was kept as low as reasonably achievable to obtain optimal diagnostic quality images. DICOM format image data is available electronically f or review and comparison. FINDINGS: Sagittal and coronal reconstructions show degenerative disc disease with loss of disc height at every cervical level. There is straightening of normal curvature. Minimal grade 1 anterolisthesis of C2 on 3. Vertebral body heights are maintained without fracture. Far lateral images show bony fusion of th e posterior articulating facets at C7-T1 . C2-C3: The bony spinal canal is normal in size. No evidence of disc bulge or herniation. The neural forami na are bilaterally patent. C3-C4: Right-sided facet hypertrophy with some encroachment on both neural foramina. Spinal canal is adequat e C4-C5: Bilateral facet hypertrophy with some encroachment focal foramina, left greater than right. Spinal ca nal is adequate C5-C6: Uncovertebral ridging but the spinal canal and neural foramina are patent C6-C7: Uncovertebral ridging but the spinal canal and neural foramina are patent C7-T1: The bony spinal canal is normal in size. No evidence of disc bulge or herniation. The neural forami na are bilaterally patent. CONCLUSION: 1. Degenerative disc disease throughout the cervical spine with loss of disc height at every cervical level. Minimal grade 1 anterolisthesis of C2 on 3. 2. Multilevel facet hypertrophy predominantly rightward at C3-4 and bilaterally at C4-5. This does re sult in some encroachment on the adjacent neural foramina. Spinal canal appears to be adequate throug hout. 3. Bony fusion of the articulating facets bilaterally at C7-T1. No acute fracture. Raheem Chung MD on June 28, 2017 at 9:43 Board Certified Radiologist. This report was verified electronically.
[2017-06-28 10:00] VITALS: BP 154/93; PULSE 65; RESP 24; O2SAT 96
--- NOTE | 2017-06-28 13:08 | EKG ---
Date Performed: 06/28/2017 Time Performed: 07:12:54 PTAGE: 82 years EKG: ATRIAL FLUTTER/TACHYCARDIA WITH ABERRANT CONDUCTION OR VENTRICULAR PREMATURE COMPLEXES MONA ED LEFT AXIS DEVIATION POSSIBLE RIGHT VENTRICULAR CONDUCTION DELAY ABNORMAL ECG NO PREVIOUS TRACING DOCTOR: Cory Ledbetter Interpretating Date/Time 06/28/2017 13:04:28
== END 2017-06-28 10:47 | disposition home or self-care (01) ==
LOC: NEPE 06:55
DX: S01.81XA Laceration without foreign body of other part of head, initial encounter (principal); N39.0 Urinary tract infection, site not specified; I10 Essential (primary) hypertension; R94.31 Abnormal electrocardiogram [ECG] [EKG]; W05.0XXA Fall from non-moving wheelchair, initial encounter; Y92.129 Unspecified place in nursing home as the place of occurrence of the external cause
CPT/HCPCS: 12011; 70450; 72125; 80048; 81001; 82550; 82552; 83880; 84484; 85025; 85610; 85730; 87077; 87086; 87186; 93005; 96374; 99285; J0696

== ENCOUNTER 2017-12-18 18:45 | Inpatient (IN) ==
[2017-12-18] MEDS ORDERED: Sod Chloride 0.9% Inj 100 ML IV.SIG SCH (19:30)
[2017-12-18] MEDS ORDERED: Sod Chloride 0.9% Inj 1,000 ML IV.SIG SCH ×2 (19:30)
--- NOTE | 2017-12-18 20:04 | CT ---
EXAM DATE: 12/18/2017 7:58 PM EDT AGE/SEX: 82 years / Male INDICATIONS: Altered mental status CLINICAL DATA: This is the patient's initial encounter. Patient reports that signs and symptoms have been present for 1 day and indicates a pain score of 0/10. MEDICAL/SURGICAL HISTORY: Dementia. Hypertension. None. RADIATION DOSE: 53.94 CTDI (mGy) COMPARISON: [facility] [place]/O CONTRAST, 06/28/2017. . TECHNIQUE: CT of the head without contrast. Using automated exposure control and adjustment of the mA and/or kV according to patient size, radiation dose was kept as low as reasonably achievable to ob tain optimal diagnostic quality images. DICOM format image data is available electronically for revi ew and comparison. FINDINGS: The patient's head is canted in the gantry creating asymmetries. There is also mild motion artifact causing blurring of the mid convexity images. Cerebrum: The ventricles and sulci are prominent, similar to prior. 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 Stable decreased attenuation in the periventricular white matter. No janis dence of mass effect, acute blood products, or extra-axial fluid. Posterior Fossa: The cerebellum and brainstem are intact. The 4th ventricle is midline. The cerebe llopontine angle is unremarkable. Extracranial: Prosthetic right orbital globe. Skull: The calvaria is intact. No evidence of skull fracture. CONCLUSION: 1. No acute findings in the brain. 2. Stable ischemic changes in the supratentorial brain. . Electronically signed by: Fernando Lynne MD 12/18/2017 8:02 PM EDT
--- NOTE | 2017-12-18 20:04 | XR ---
EXAM DATE: 12/18/2017 7:47 PM EDT AGE/SEX: 82 years / Male INDICATIONS: Fever. CLINICAL DATA: This is the patient's initial encounter. Patient reports that signs and symptoms have been present for 1 day and indicates a pain score of Nonresponsive. MEDICAL/SURGICAL HISTORY: Non-responsive. Non-responsive. COMPARISON: [facility] [place]. . FINDINGS: There is consolidation in the left lower lung causing loss of delineation of the left hemidiaphragm. There is indistinctness of the bronchopulmonary markings centrally and in the right infrahilar region without focal infiltrates. The heart is moderately enlarged, stable from prior. CONCLUSION: Left lower lobe consolidation. Electronically signed by: Fernando Lynne MD 12/18/2017 8:03 PM EDT
[2017-12-18 20:19] LABS: Baso % (Auto) 0.3 % (0.0-2.0); Eos % (Auto) 0.2 % (0.0-4.0); Hemoglobin 13.3 gm/dL (13.0-17.0); Lymph # (Auto) 2.5 th/mm3 (1.0-4.8); Lymph % (Auto) 20.9 % (9.0-44.0); Mean Corpuscular HGB Conc 32.4 % (32.0-36.0); Mean Corpuscular Hemoglobin 28.6 pg (27.0-34.0); Mean Corpuscular Volume 88.2 fL (80.0-100.0); Mean Platelet Volume 9.1 fL (7.0-11.0); Mono # (Auto) 0.8 th/mm3 (0.0-0.9); Mono % (Auto) 7.1 % (0.0-8.0); Neut # (Auto) 8.5 th/mm3 (1.8-7.7); Neut % (Auto) 71.5 % (16.0-70.0); Platelet Count 207 th/mm3 (150-450); Red Blood Count 4.64 mil/mm3 (4.50-5.90); Red Cell Distribution Width 16.1 % (11.6-17.2); White Blood Count 11.9 th/mm3 (4.0-11.0)
[2017-12-18 20:40] LABS: Prothrombin Time 10.5 sec (9.8-11.6)
--- NOTE | 2017-12-18 20:41 | ED ---
HPI General Chief Complaint: Altered Mental Status Stated Complaint: Poss AMS Time Seen by Provider: 12/18/17 19:19 Source: RN notes reviewed and old records reviewed Mode of arrival: EMS Limitations: altered mental status History of Present Illness HPI narrative: The patient is an 82-year-old male with history of schizophrenia , dementia, HTN, anxiety and recurrent urinary tract infections that was sent in for evaluation due to depressed mental status from baseline. The patient is nonverbal and noncommunicating and contracted at baseline. he does not answer any questions does not open eyes on command. Appears to move all extremities. MD complaint: altered mental status and decreased responsiveness Onset (ago): unknown Context: history of similar presentation Related Data Home Medications Medication Instructions Recorded Confirmed acetaminophen [Tylenol] 650 mg PO Q4H PRN 12/18/17 12/18/17 aspirin 81 mg PO DAILY 12/18/17 12/18/17 bisacodyl [Dulcolax (bisacodyl)] 10 mg MD DAILY PRN 12/18/17 12/18/17 dextromethorphan-quinidine 1 cap PO DAILY 12/18/17 12/18/17 [Nuedexta] doxazosin [Cardura] 4 mg PO DAILY 12/18/17 12/18/17 gabapentin [Neurontin] 100 mg PO BID 12/18/17 12/18/17 lisinopril 20 mg PO BID 12/18/17 12/18/17 lorazepam [Ativan] 0.5 mg PO BID 12/18/17 12/18/17 multivitamin 1 tab PO DAILY 12/18/17 12/18/17 quetiapine [Seroquel] 50 mg PO BID 12/18/17 12/18/17 Allergies Allergy/AdvReac Type Severity Reaction Status Date / Time No Known Allergies Allergy Verified 12/18/17 21:14 Review of Systems ROS Unobtainable ROS Unobtainable: unobtainable due to mental condition and unobtainable due to mental status PMFSH Medical History Medical History Anxiety (Acute) Constipation (Acute) Dementia (Acute) Hypertension (Acute) Pneumonia (Acute) Schizophrenia (Acute) UTI (urinary tract infection) (Acute) Social History Social History (Reviewed 12/18/17 @ 20:39 by MIKE Odonnell Substance History: No History of Abuse Smoking Status: Cognitive impairment How Often Do You Have a Drink Containing Alcohol: Never Recent Travel in [facility] within the Last 8 Weeks: No Recent Out of Country Travel within the Last 8 Weeks: No Immunization History Tetanus Immunization: <5 Years Hx Influenza Vaccine This Season: Yes Exam Narrative Exam Narrative: GENERAL: Not responding to questions. SKIN: Focused skin assessment warm/dry. HEAD: Atraumatic. Normocephalic. EYES: Pupils equal and round. No scleral icterus. No injection or drainage. ENT: No nasal bleeding or discharge. Mucous membranes pink and moist. NECK: Trachea midline. No JVD. CARDIOVASCULAR: Regular rate and rhythm. No murmur appreciated. RESPIRATORY: No accessory muscle use. Clear to auscultation. Breath sounds equal bilaterally. GASTROINTESTINAL: Abdomen soft, non-tender, nondistended. Hepatic and splenic margins not palpable. MUSCULOSKELETAL: No obvious deformities. No clubbing. No cyanosis. No edema. NEUROLOGICAL: Unable to assess does not respond to questions does distract to painful stimuli. Contracted on lower extremities. PSYCHIATRIC: Unable to assess Course Hospital Course: Patient with UA suggestive of urinary tract infection markedly elevated BUN/ creatinine. Was given fluids for hydration due to his renal failure as well as broad-spectrum antibiotics for tract infection. Blood cultures and urine cultures have been collected and results are pending. Initial Documented Vital Signs Temperature 97.9 F 12/18/17 18:54 Pulse Rate 87 12/18/17 18:54 Respiratory Rate 22 12/18/17 18:54 Blood Pressure 103/74 12/18/17 18:54 Pulse Oximetry 95 12/18/17 18:54 Last Documented Vital Signs Temperature 97.9 F 12/18/17 18:54 Pulse Rate 91 H 12/19/17 01:07 Respiratory Rate 19 12/19/17 01:07 Blood Pressure 119/69 12/19/17 01:07 Pulse Oximetry 69 L 12/19/17 01:07 Critical Care Time Critical Care Time: Yes Total Critical Care Time: 45 Attestation: Aggregate critical care time was 45 minutes. Time to perform other separately billable procedures was not included in the critical care time. My time did not include minutes spent treating any other patients simultaneously or on activities that did not directly contribute to the patient's treatment. The services I provided to this patient were to treat and/or prevent clinically significant deterioration that could result in: Permanent disability and/or . I provided critical care services requiring my management, as noted below: Chart data review, documentation time, medication orders and management, vital sign assessments/reviewing monitor data, ordering and reviewing lab tests, ordering and interpreting/reviewing x-rays and diagnostic studies, care of the patient and discussion of the patient with the admitting physicians. Medical Decision Making MDM Narrative Medical Screen Exam Complete: Yes Emergency Medical Condition: Yes Lab Data Result diagrams: 12/18/17 19:35 12/18/17 21:33 Lab Results 12/18/17 12/18/17 12/18/17 Range/Units 19:35 19:35 19:43 WBC 11.9 H (4.0-11.0) th/mm3 RBC 4.64 (4.50-5.90) mil/mm3 Hgb 13.3 (13.0-17.0) gm/dL Hct 41.0 (39.0-51.0) % MCV 88.2 (80.0-100.0) fL MCH 28.6 (27.0-34.0) pg MCHC 32.4 (32.0-36.0) % RDW 16.1 (11.6-17.2) % Plt Count 207 (150-450) th/mm3 MPV 9.1 (7.0-11.0) fL Neut % (Auto) 71.5 H (16.0-70.0) % Lymph % (Auto) 20.9 (9.0-44.0) % [place] % (Auto) 7.1 (0.0-8.0) % Eos % (Auto) 0.2 (0.0-4.0) % Baso % (Auto) 0.3 (0.0-2.0) % Neut # (Auto) 8.5 H (1.8-7.7) th/mm3 Lymph # (Auto) 2.5 (1.0-4.8) th/mm3 [place] # (Auto) 0.8 (0.0-0.9) th/mm3 Eos # (Auto) 0.0 (0.0-0.4) th/mm3 Baso # (Auto) 0.0 (0.0-0.2) th/mm3 WBC Differential . Differential Comment Auto diff final PT 10.5 (9.8-11.6) sec INR 1.0 Ratio APTT 21.0 L (24.3-30.1) sec Sodium (136-145) meq/L Potassium (3.5-5.1) meq/L Chloride (98-107) meq/L Carbon Dioxide (21.0-32.0) meq/L Anion Gap (5-15) meq/L BUN (7-18) mg/dL Creatinine (0.60-1.30) mg/dL Estimated GFR (>89) mL/min Random Glucose (74-106) mg/dL Lactic Acid 1.5 (0.4-2.0) mmol/L Calcium (8.5-10.1) mg/dL Total Bilirubin (0.2-1.0) mg/dL AST (15-37) U/L ALT (12-78) U/L Alkaline Phosphatase (45-117) U/L Total Creatine Kinase (39-308) U/L CK-MB (CK-2) (0.5-3.6) ng/mL CK-MB (CK-2) % (0.0-4.0) % Troponin I (0.02-0.05) ng/mL Total Protein (6.4-8.2) g/dL Albumin (3.4-5.0) g/dL Urine Color (Yellw/Straw) Urine Clarity (Clear) Urine pH (5.0-8.5) Ur Specific [place]coe (1.002-1.035) Urine Protein (Neg-Trace) mg/dL Urine Glucose (UA) (Negative) mg/dL Urine Ketones (Negative) mg/dL Urine Occult Blood (Negative) Urine Nitrate (Negative) Urine Bilirubin (Negative) Urine Urobilinogen (Less than 2) mg/dL Ur Leukocyte Esterase (Negative) Urine RBC (0-3) /hpf Urine WBC (0-5) /hpf Amorphous Sediment (None) /hpf Urine Bacteria (None) /hpf Urine Mucus (Occasional) /lpf Micro UA Comment Ur Microscopic Review Urine Culture Comments 12/18/17 12/18/17 12/18/17 Range/Units 20:18 21:33 21:33 WBC (4.0-11.0) th/mm3 RBC (4.50-5.90) mil/mm3 Hgb (13.0-17.0) gm/dL Hct (39.0-51.0) % MCV (80.0-100.0) fL MCH (27.0-34.0) pg MCHC (32.0-36.0) % RDW (11.6-17.2) % Plt Count (150-450) th/mm3 MPV (7.0-11.0) fL Neut % (Auto) (16.0-70.0) % Lymph % (Auto) (9.0-44.0) % [place] % (Auto) (0.0-8.0) % Eos % (Auto) (0.0-4.0) % Baso % (Auto) (0.0-2.0) % Neut # (Auto) (1.8-7.7) th/mm3 Lymph # (Auto) (1.0-4.8) th/mm3 [place] # (Auto) (0.0-0.9) th/mm3 Eos # (Auto) (0.0-0.4) th/mm3 Baso # (Auto) (0.0-0.2) th/mm3 WBC Differential Differential Comment PT (9.8-11.6) sec INR Ratio APTT (24.3-30.1) sec Sodium 146 H (136-145) meq/L Potassium 4.6 (3.5-5.1) meq/L Chloride 113 H (98-107) meq/L Carbon Dioxide 23.3 (21.0-32.0) meq/L Anion Gap 10 (5-15) meq/L BUN 48 H (7-18) mg/dL Creatinine 4.40 H (0.60-1.30) mg/dL Estimated GFR 16 L (>89) mL/min Random Glucose 86 (74-106) mg/dL Lactic Acid (0.4-2.0) mmol/L Calcium 8.2 L (8.5-10.1) mg/dL Total Bilirubin 0.6 (0.2-1.0) mg/dL AST 131 H (15-37) U/L ALT 36 (12-78) U/L Alkaline Phosphatase 82 (45-117) U/L Total Creatine Kinase 5770 H (39-308) U/L CK-MB (CK-2) 18.3 H (0.5-3.6) ng/mL CK-MB (CK-2) % 0.3 (0.0-4.0) % Troponin I 0.10 H (0.02-0.05) ng/mL Total Protein 6.9 (6.4-8.2) g/dL Albumin 3.3 L (3.4-5.0) g/dL Urine Color Lucia (Yellw/Straw) Urine Clarity Turbid H (Clear) Urine pH 5.0 (5.0-8.5) Ur Specific [place] 1.017 (1.002-1.035) Urine Protein 100 H (Neg-Trace) mg/dL Urine Glucose (UA) Negative (Negative) mg/dL Urine Ketones Trace H (Negative) mg/dL Urine Occult Blood Moderate H (Negative) Urine Nitrate Negative (Negative) Urine Bilirubin Negative (Negative) Urine Urobilinogen 2.0 H (Less than 2) mg/dL Ur Leukocyte Esterase Moderate H (Negative) Urine RBC 8 H (0-3) /hpf Urine WBC (0-5) /hpf Amorphous Sediment Moderate H (None) /hpf Urine Bacteria Moderate H (None) /hpf Urine Mucus Few H (Occasional) /lpf Micro UA Comment Cath-culture ind Ur Microscopic Review Not Reportable Urine Culture Comments Cath-cult indicated Imaging Data Radiologist's impression: Head CT 12/18/17 19:25 CONCLUSION: 1. No acute findings in the brain. 2. Stable ischemic changes in the supratentorial brain. . Chest X-Ray 12/18/17 19:26 CONCLUSION: Left lower lobe consolidation. Discharge Plan Discharge Disposition Patient Disposition: 30 Still Patient Discharge Condition Condition: Fair Discharge Details Diagnosis: Altered mental status, Acute UTI, Acute renal failure Physicians Team ED Provider: Rodo Mullins Primary Care Provider: Sandro Chaidez Attending Provider: Saravanan Biggs Other Providers: Jodi Rodriguez Discharge Interventions Interventions: ED Discharge Assessment Last Done: 12/19/17 01:06 Vital Signs Last Done: 12/18/17 18:54 Status ED Status: Left Department Discharge Information Discharge Date/Time: 12/19/17 01:07
[2017-12-18 20:56] LABS: Amorphous Sediment,Urine Moderate /hpf; Bacteria,Urine Moderate /hpf; Bilirubin,Urine Negative (Negative); Clarity,Urine Turbid (Clear); Color,Urine Amber (Yellw/Straw); Glucose,Urine (UA) Negative (Negative); Leukocyte Esterase,Urine Moderate (Negative); Mucus,Urine Few /lpf (Occasional); Nitrite,Urine Negative (Negative); Specific Gravity,Urine 1.017 (1.002-1.035)
[2017-12-18 22:32] LABS: Albumin 3.3 g/dL (3.4-5.0); Anion Gap 10 meq/L (5-15); Aspartate Aminotransferase 131 U/L (15-37); Blood Urea Nitrogen 48 mg/dL (7-18); Calcium 8.2 mg/dL (8.5-10.1); Carbon Dioxide 23.3 meq/L (21.0-32.0); Chloride 113 meq/L (98-107); Glomerular Filtration Rate 16 mL/min (>89); Glucose,Random 86 mg/dL (74-106); Potassium 4.6 meq/L (3.5-5.1); Sodium 146 meq/L (136-145)
[2017-12-18 22:37] LABS: Alanine Aminotransferase 36 U/L (12-78); Alkaline Phosphatase 82 U/L (45-117); Total Protein 6.9 g/dL (6.4-8.2)
[2017-12-18 23:37] LABS: CKMB Percent 0.3 % (0.0-4.0); Creatine Kinase MB 18.3 ng/mL (0.5-3.6)
[2017-12-18] MEDS ORDERED: Bisacodyl 10 MG Supp RECTAL PRN (23:43)
[2017-12-19] MEDS: Heparin - SQ 10,000 UNITS/ML Vial SQ SCH ×3 (00:13→21:45)
[2017-12-19] MEDS: Sodium Chloride 0.45 % Inj 1,000 ML IV.CONT SCH ×2 (00:13→07:43)
[2017-12-19] MEDS ORDERED: Piperacil/Tazo 4.5 GM Premix 4.5 GM/100 ML BAG IV.SIG SCH (06:07)
--- NOTE | 2017-12-19 06:11 | P.HPIM ---
History of Present Illness Primary Care Physician: Sandro Chaidez MD History of Present Illness: 82-year-old male who is nonverbal, with history of schizophrenia, dementia, hypertension, anxiety, recurrent urinary tract infections. Sent in by rehab facility due to depressed mental status from baseline. Patient is nonverbal, noncommunicating with bilateral contractures. Chest x-ray on admission shows left lower lobe consolidation. Urinalysis with pyuria. History is obtained from discussion with the ER physician, as well as chart review Inpatient Certification: I certify that the inpatient services were ordered in accordance with Medicare regulations governing the order. This includes certification that hospital inpatient services are reasonable and necessary and in the case of services not specified as inpatient-only under 42 CFR 419.22(n), that they are appropriately provided as inpatient services in accordance to with the 2-midnight benchmark under 43 CFR 412.3(e) Estimated Total Length of Stay (Days): 3 Plans for Post Hospital Care: SNF Review of Systems All other systems reviewed negative except as stated in HPI [facility] - History History Provided By: Medical Record - Medical History Medical History: Medical History (Last Reviewed 12/18/17 @ 20:39 by Rodo Mullins DO) Anxiety Constipation Dementia Hypertension Pneumonia Schizophrenia UTI (urinary tract infection) - Surgical History Surgical History: Surgical History (Last Updated 12/19/17 @ 06:09 by Saravanan Biggs MD) History of appendectomy - Family History Family History: Family History (Last Updated 12/19/17 @ 06:09 by Saravanan Biggs MD) Other Family estrangement - Tobacco History Smoking Status: Cognitive impairment - Alcohol History How Often Do You Have a Drink Containing Alcohol: Never - Substance Use History Substance History: Unable to Obtain - Travel History Recent Travel in the [place] Within the Last 8 Weeks: No Recent Travel Out of the Country Within the Last 8 Weeks: No - Immunization History Tetanus Immunization: <5 Years Hx Influenza Vaccine This Season: Yes Medications and Allergies Active Medications: Active Medications Al Hydroxide/Mg Hydroxide (Milk Of Magnrochelle Liq) 30 ml PO Q12H PRN PRN Reason: Mild Constipation Bisacodyl (Dulcolax Supp) 10 mg RECTAL DAILY PRN PRN Reason: SEVERE CONSITIPATION Heparin Sodium (Porcine) (Heparin Inj) 5,000 units SQ BID [facility] Last Admin: 12/19/17 00:13 Dose: 5,000 units Sodium Chloride (Ns Inj) 1,000 mls @ 0 mls/hr IV.SIG .Q0M [facility] Last Infusion: 12/18/17 20:54 Dose: Infused Sodium Chloride (Ns Inj) 1,000 mls @ 0 mls/hr IV.SIG .Q0M [facility] Last Infusion: 12/18/17 20:54 Dose: Infused Sodium Chloride (Ns Inj) 100 mls @ 0 mls/hr IV.SIG .Q0M [facility] Last Infusion: 12/18/17 20:54 Dose: Infused Ceftriaxone Sodium 1,000 mg/ (Sodium Chloride) 100 mls @ 200 mls/hr IV.SIG Q24H [facility] Sodium Chloride (1/2 Normal Saline Inj) 1,000 mls @ 125 mls/hr IV.CONT .Q8H [facility] Last Admin: 12/19/17 00:13 Dose: 125 mls/hr Lactulose (Lactulose Liq) 30 ml PO DAILY PRN PRN Reason: SEVERE CONSITIPATION Sennosides (Senokot) 17.2 mg PO Q12H PRN PRN Reason: Moderate Constipation Allergies Allergy/AdvReac Type Severity Reaction Status Date / Time No Known Allergies Allergy Verified 12/18/17 21:14 Home Medications Medication Instructions Recorded Confirmed Type acetaminophen [Tylenol] 650 mg PO Q4H PRN 12/18/17 12/18/17 History aspirin 81 mg PO DAILY 12/18/17 12/18/17 History bisacodyl [Dulcolax (bisacodyl)] 10 mg [place] DAILY PRN 12/18/17 12/18/17 History dextromethorphan-quinidine 1 cap PO DAILY 12/18/17 12/18/17 History [Nuedexta] doxazosin [Cardura] 4 mg PO DAILY 12/18/17 12/18/17 History gabapentin [Neurontin] 100 mg PO BID 12/18/17 12/18/17 History lisinopril 20 mg PO BID 12/18/17 12/18/17 History lorazepam [Ativan] 0.5 mg PO BID 12/18/17 12/18/17 History multivitamin 1 tab PO DAILY 12/18/17 12/18/17 History quetiapine [Seroquel] 50 mg PO BID 12/18/17 12/18/17 History Exam Vital signs: Vital Signs 12/18/17 18:54 12/18/17 20:15 12/19/17 00:01 Temperature 97.9 F Pulse Rate 87 81 Respiratory Rate 22 16 Blood Pressure 103/74 137/83 Pulse Oximetry 95 96 100 12/19/17 01:07 12/19/17 04:00 Temperature 97.8 F Pulse Rate 91 H 70 Respiratory Rate 19 19 Blood Pressure 119/69 130/70 Pulse Oximetry 69 L Intake & Output 12/18/17 12/18/17 12/19/17 06:59 18:59 06:59 Intake Total 2200 / 2200 Balance 2200 / 2200 Weight 68.039 kg 67.7 kg Intake: IV 2200 / 2200 NS Inj 100 ML @ Wide Open IV. 2100 / 2099 SIG .Q0M [facility] Rx#:[id number] Rocephin Inj 1,000 MG In NS Inj 100 / 100 100 ML @ 200 mls/hr IV.SIG ONCE ONE Rx#:[id number] Other: Weight On Admission 68.039 kg Narrative: GENERAL: Patient lying in bed on left side. Appears tremulous. Responds to tactile stimuli, however otherwise noninteractive SKIN: Warm and dry. HEAD: Atraumatic. Normocephalic. EYES: Right eye eviscerated. No scleral icterus. No injection or drainage. ENT: No nasal bleeding or discharge. Mucous membranes pink and moist. NECK: Trachea midline. No JVD. CARDIOVASCULAR: Regular rate and rhythm. RESPIRATORY: No accessory muscle use. Clear to auscultation. Breath sounds equal bilaterally. GASTROINTESTINAL: Abdomen soft, non-tender, nondistended. Hepatic and splenic margins not palpable. MUSCULOSKELETAL: Extremities without clubbing, cyanosis, or edema. No obvious deformities. NEUROLOGICAL: Awake, nonverbal. contractures bilateral arms Results - Labs CBC & Chem 7: 12/18/17 19:35 12/18/17 21:33 Labs: Short CBC 12/18/17 Range/Units 19:35 WBC 11.9 H (4.0-11.0) th/mm3 Hgb 13.3 (13.0-17.0) gm/dL Hct 41.0 (39.0-51.0) % Plt Count 207 (150-450) th/mm3 BMP 12/18/17 21:33 Sodium 146 H Potassium 4.6 Chloride 113 H Carbon Dioxide 23.3 BUN 48 H Creatinine 4.40 H Calcium 8.2 L Cardiac Enzymes 12/18/17 12/18/17 Range/Units 21:33 21:33 Total Creatine Kinase 5770 H (39-308) U/L CK-MB (CK-2) 18.3 H (0.5-3.6) ng/mL Troponin I 0.10 H (0.02-0.05) ng/mL Liver Function 12/18/17 Range/Units 21:33 Total Bilirubin 0.6 (0.2-1.0) mg/dL AST 131 H (15-37) U/L ALT 36 (12-78) U/L Alkaline Phosphatase 82 (45-117) U/L Albumin 3.3 L (3.4-5.0) g/dL Urine 12/18/17 Range/Units 20:18 Urine Color Lucia (Yellw/Straw) Urine Clarity Turbid H (Clear) Urine pH 5.0 (5.0-8.5) Ur Specific [place] 1.017 (1.002-1.035) Urine Protein 100 H (Neg-Trace) mg/dL Urine Glucose (UA) Negative (Negative) mg/dL - Imaging Impressions Head CT 12/18/17 19:25 CONCLUSION: 1. No acute findings in the brain. 2. Stable ischemic changes in the supratentorial brain. . Chest X-Ray 12/18/17 19:26 CONCLUSION: Left lower lobe consolidation. Caprini VTE Risk Assessment Caprini VTE Risk Assessment: Moderate/High Risk (score >= 2) Caprini Risk Assessment Model: Point Value = 1 Point Value = 2 Point Value = 3 Point Value = 5 Age 41-60 Minor surgery BMI > 25 kg/m2 Swollen legs Varicose veins or History of unexplained or recurrent spontaneous Oral contraceptives or hormone replacement Sepsis (< 1 month) Serious lung disease, including pneumonia (< 1 month) Abnormal pulmonary function Acute myocardial infarction Congestive heart failure (< 1 month) History of inflammatory bowel disease Medical patient at bed rest Age 61-74 Arthroscopic surgery Major open surgery (> 45 min) Laparoscopic surgery (> 45 min) Malignancy Confined to bed (> 72 hours) Immobilizing plaster cast Central venous access Age >= 75 History of VTE Family history of VTE Factor V Leiden Prothrombin [id number] Lupus anticoagulant Anticardiolipin antibodies Elevated serum homocysteine Heparin-induced thrombocytopenia Other congenital or acquired thrombophilia Stroke (< 1 month) Elective arthroplasty Hip, pelvis, or leg fracture Acute spinal cord injury (< 1 month) Prophylaxis Regimen: Total Risk Factor Score Risk Level Prophylaxis Regimen 0-1 Low Early ambulation 2 Moderate Order ONE of the following: *Sequential Compression Device (SCD) *Heparin 5000 units SQ BID 3-4 Higher Order ONE of the following medications: *Heparin 5000 units SQ TID *Enoxaparin/Lovenox 40 mg SQ daily (WT < 150 kg, CrCl > 30 mL/min) *Enoxaparin/Lovenox 30 mg SQ daily (WT < 150 kg, CrCl > 10-29 mL/min) *Enoxaparin/Lovenox 30 mg SQ BID (WT < 150 kg, CrCl > 30 mL/min) AND/OR *Sequential Compression Device (SCD) 5 or more Highest Order ONE of the following medications: *Heparin 5000 units SQ TID (Preferred with Epidurals) *Enoxaparin/Lovenox 40 mg SQ daily (WT < 150 kg, CrCl > 30 mL/min) *Enoxaparin/Lovenox 30 mg SQ daily (WT < 150 kg, CrCl > 10-29 mL/min) *Enoxaparin/Lovenox 30 mg SQ BID (WT < 150 kg, CrCl > 30 mL/min) AND *Sequential Compression Device (SCD) Assessment and Plan - Plan //Encephalopathy. //Rhabdomyolysis. = Patient appears to have changed from baseline as currently he is not appropriate to be eating, however does not have PEG tube. Will maintain n.p.o. Check EEG. Her speech therapy evaluation -CK 5770. Aggressive IV fluid replacement. Continue to monitor. Check EEG. //Acute kidney injury on chronic kidney disease stage III. Creatinine 4.4. = Aggressive IV fluid replacement. Will check kidney ultrasound. Follow kidney function //Urinary tract infection. Pyuria on urinalysis. Will start on ceftriaxone. Check kidney ultrasound. Follow-up cultures. //Hypertension. Blood pressure borderline low. Will hold off on blood pressure medications for now. Continue to monitor. Discussed Condition With: Patient, nurse. H&P: Quality - VTE Deep Vein Thrombosis/Pulmonary Embolism Present on Admission: No
[2017-12-19] MEDS ORDERED: Piperacil/Tazo 2.25 GM Premix 50 ML IV.SIG ONE (07:00)
[2017-12-19] MEDS ORDERED: Sodium Chloride 0.9% 2 ML Flush PRN IV.FLUSH (07:03)
[2017-12-19 07:20] LABS: Baso % (Auto) 0.4 % (0.0-2.0); Eos # (Auto) 0.2 th/mm3 (0.0-0.4); Eos % (Auto) 1.5 % (0.0-4.0); Hematocrit 35.7 % (39.0-51.0); Lymph # (Auto) 2.6 th/mm3 (1.0-4.8); Mean Corpuscular HGB Conc 33.5 % (32.0-36.0); Mean Corpuscular Hemoglobin 29.1 pg (27.0-34.0); Mean Corpuscular Volume 86.8 fL (80.0-100.0); Mean Platelet Volume 8.7 fL (7.0-11.0); Mono # (Auto) 0.7 th/mm3 (0.0-0.9); Mono % (Auto) 6.7 % (0.0-8.0); Neut # (Auto) 6.5 th/mm3 (1.8-7.7); Neut % (Auto) 65.4 % (16.0-70.0); Platelet Count 164 th/mm3 (150-450); Red Blood Count 4.11 mil/mm3 (4.50-5.90); Red Cell Distribution Width 15.7 % (11.6-17.2)
[2017-12-19 08:22] LABS: Alanine Aminotransferase 38 U/L (12-78); Alkaline Phosphatase 76 U/L (45-117); Anion Gap 9 meq/L (5-15); Aspartate Aminotransferase 139 U/L (15-37); Blood Urea Nitrogen 44 mg/dL (7-18); Calcium 7.9 mg/dL (8.5-10.1); Carbon Dioxide 25.7 meq/L (21.0-32.0); Chloride 114 meq/L (98-107); Creatine Kinase 5865 U/L (39-308); Glomerular Filtration Rate 21 mL/min (>89); Glucose,Random 75 mg/dL (74-106); Potassium 4.2 meq/L (3.5-5.1); Sodium 149 meq/L (136-145); Total Protein 6.7 g/dL (6.4-8.2)
[2017-12-19] MEDS ORDERED: Gabapentin 100 MG Capsule PO SCH (09:00)
[2017-12-19] MEDS ORDERED: Doxazosin 4 MG Tablet PO SCH (09:00)
[2017-12-19] MEDS ORDERED: QUEtiapine 25 MG Tablet PO SCH (09:00)
[2017-12-19] MEDS ORDERED: Lisinopril 20 MG Tablet PO SCH (09:00)
--- NOTE | 2017-12-19 09:11 | US ---
EXAM DATE: 12/19/2017 8:59 AM EDT AGE/SEX: 82 years / Male INDICATIONS: Hydronephrosis. CLINICAL DATA: This is the patient's initial encounter. Patient reports that signs and symptoms have been present for 1 day and indicates a pain score of Nonresponsive. MEDICAL/SURGICAL HISTORY: Dementia. Hypertension. Pneumonia. Schizophrenia. UTI. Anxiety. Cons tipation. Appendectomy. COMPARISON: [facility] [place], KIDNEY/RENAL/BLADDER, 08/19/2016. . MEASUREMENTS: Right Kidney:__9.1 x 3.9 x 3.6 cm Left Kidney:__9.2 x 4.0 x 4.5 cm FINDINGS: Right Kidney: Normal echotexture and cortical thickness for patient's age. No mass or hydronephrosis. There is a small cyst measuring approximately 1.2 cm along the lower pole. Left Kidney: Normal echotexture and cortical thickness for patient's age. No mass or hydronephrosis. Bladder: Within normal limits given the degree of distension. Other: None. No significant changes compared to the prior examination. CONCLUSION: 1. No evidence of hydronephrosis. 2. Small benign-appearing right renal cyst measuring 1.2 cm. 3. No significant changes compared to the prior study. Electronically signed by: Willie Shepherd MD 12/19/2017 9:09 AM EDT
[2017-12-19] MEDS: Sodium Chloride 0.9% 2 ML Flush BID IV.FLUSH SCH ×2 (09:15→22:26)
[2017-12-19] MEDS: LORazepam 0.5 MG Tablet PO SCH (09:15)
[2017-12-19 09:29] LABS: CKMB Percent 0.3 % (0.0-4.0); Creatine Kinase MB 18.1 ng/mL (0.5-3.6)
--- NOTE | 2017-12-19 13:16 | MB ---
cc: Elisa Wagner MD DATE: 12/19/2017 REASON FOR CONSULTATION: Possible seizure. HISTORY OF PRESENT ILLNESS: This is an 82-year-old man, nonverbal with history of dementia, hypertension, recurrent UTIs, who comes in from a rehab facility with decreased mentation from baseline. The patient normally is nonverbal, noncommunicating with contractures in his extremities. He had a left lower lobe consolidation on his recent chest x-ray. Urinalysis showed pyuria. There may have been a seizure. I am not sure, it does not state. The patient cannot tell me. PHYSICAL EXAMINATION: VITAL SIGNS: His temperature is 97.9, pulse 94, respiratory rate 20, blood pressure 175/96. GENERAL: He is lying in bed, legs raised, a pillow in between his thighs in no acute distress. 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 Left pupil seems to be reactive. He does move and look around the room. He is nonverbal. Some moaning. Some increased tone in all 4 extremities. Does not follow any commands. LABORATORY DATA: His urine is turbid, moderate leukocyte esterase. Culture is pending on that. RBCs 8, multiple WBCs. Chemistry: Sodium 149, BUN 44, creatinine 3.37. GFR 21. CK is currently 5865. Troponin is 0.08. Albumin is 3. PTT 21. CBC: White count is 10, hemoglobin 12.5. MICROBIOLOGY: Pending. IMAGING: Bladder ultrasound. No hydronephrosis. Right renal cyst. Chest x-ray: Left lower lobe consolidation. CURRENT MEDICATIONS: 1. Baby aspirin. 2. Subcutaneous heparin. 3. Zosyn. 4. Seroquel 50 mg b.i.d. IMPRESSION AND PLAN: Change in mental status in an 82-year-old man. Baseline is really unknown. Does have what looks like a pneumonia. Continue his antibiotics. We will go ahead and get an EEG. Fluids, normalize electrolytes. His creatinine is elevated. I am not sure what his baseline is. Ceftriaxone also will be started. Monitor for any seizures. EEG, if it is not ordered, I will go ahead and order it. I will not put him on any antiepileptics, unless there is evidence of any epileptic activity. This is more of a change in mental status than epilepsy consult. I am not sure what the patient's baseline code status is. Continue current care. MD MARCIA Barnett/mars , 11:28 AM , 11:36 AM
--- NOTE | 2017-12-19 13:17 | MG ---
cc: Raheem Jules MD [id number] INDICATIONS: Constant upper body twitching throughout the EEG. An 82-year-old man, change in mental status, anxiety, schizophrenia, heparin. FINDINGS: The recording does show a lot of muscle artifact throughout. There appears to be normal-appearing beta rhythms posteriorly. The tech notes head jerking but these do not correlate with any seizure activity, appears to be more muscle artifact. Photic stimulation was performed without significant posterior driving. I do not see any epileptiform or seizure activity. No hemisphere asymmetries are noted. IMPRESSION: Normal-appearing background electroencephalogram without evidence for a focal or diffuse abnormality. The facial jerking noted frequently throughout the entire recording is muscle artifact only. Raheem Jules MD DJM/ct , 01:01 PM , 01:08 PM
--- NOTE | 2017-12-19 13:37 | P.CONNP ---
History of Present Illness Service: Nephrology Consult date: 12/19/17 Requesting Physician: Saravanan Biggs Reason for Consult: Acute and chronic kidney disease Primary Care Provider: Sandro Chaidez MD Family Provider: Sandro Chaidez MD Chief Complaint: Altered mental status History of Present Illness: Patient is a 82-year-old black male known to me from last year, history of dementia he has history of recurrent urinary tract infection, acute renal failure, chronic kidney disease, ectropion of both kidney, right renal cyst came in with a creatinine of 4.4 with hydration and treatment of UTI it has declined to 3.3, baseline creatinine is around 1.4 Review of Systems unobtainable due to mental status PMFSH - History History Provided By: Medical Record - Medical History Medical History: Medical History (Last Reviewed 12/19/17 @ 11:57 by Val Harden Production Machine Operator, [employer]) Anxiety Constipation Dementia Hypertension Pneumonia Schizophrenia UTI (urinary tract infection) - Surgical History Surgical History: Surgical History (Last Updated 12/19/17 @ 06:09 by Saravanan Biggs MD) History of appendectomy - Family History Family History: Family History (Last Updated 12/19/17 @ 06:09 by Saravanan Biggs MD) Other Family estrangement - Social History I have reviewed the patient's Social History: Yes - Tobacco History Smoking Status: Cognitive impairment - Alcohol History How Often Do You Have a Drink Containing Alcohol: Never - Substance Use History Substance History: Unable to Obtain - Travel History Recent Travel in the [place] Within the Last 8 Weeks: No Recent Travel Out of the Country Within the Last 8 Weeks: No - Immunization History Tetanus Immunization: <5 Years Hx Influenza Vaccine This Season: Yes Medications and Allergies Active Medications: Active Medications Al Hydroxide/Mg Hydroxide (Milk Of Magnrochelle Liq) 30 ml PO Q12H PRN PRN Reason: Mild Constipation Aspirin (Aspirin Chew) 81 mg PO DAILY [facility] Last Admin: 12/19/17 09:15 Dose: Not Given Bisacodyl (Dulcolax Supp) 10 mg RECTAL DAILY PRN PRN Reason: SEVERE CONSITIPATION Heparin Sodium (Porcine) (Heparin Inj) 5,000 units SQ BID [facility] Last Admin: 12/19/17 08:11 Dose: 5,000 units Sodium Chloride (Ns Inj) 1,000 mls @ 0 mls/hr IV.SIG .Q0M [facility] Last Infusion: 12/18/17 20:54 Dose: Infused Sodium Chloride (Ns Inj) 1,000 mls @ 0 mls/hr IV.SIG .Q0M [facility] Last Infusion: 12/18/17 20:54 Dose: Infused Sodium Chloride (Ns Inj) 100 mls @ 0 mls/hr IV.SIG .Q0M [facility] Last Infusion: 12/18/17 20:54 Dose: Infused Sodium Chloride (1/2 Normal Saline Inj) 1,000 mls @ 125 mls/hr IV.CONT .Q8H [facility] Last Admin: 12/19/17 07:43 Dose: 125 mls/hr Piperacillin/Tazobactam/Dextrose (Zosyn 2.25 Gm Premix) 50 mls @ 100 mls/hr IV.SIG Q8H [facility] Last Admin: 12/19/17 13:13 Dose: 100 mls/hr Lactulose (Lactulose Liq) 30 ml PO DAILY PRN PRN Reason: SEVERE CONSITIPATION Lorazepam (Ativan) 0.5 mg PO BID [facility] Last Admin: 12/19/17 09:15 Dose: Not Given Quetiapine Fumarate (Seroquel) 50 mg PO BID [facility] Last Admin: 12/19/17 09:15 Dose: Not Given Sennosides (Senokot) 17.2 mg PO Q12H PRN PRN Reason: Moderate Constipation Sodium Chloride (Ns Flush) 2 ml IV.FLUSH BID [facility] Last Admin: 12/19/17 09:15 Dose: Not Given Sodium Chloride (Ns Flush) 2 ml IV.FLUSH PRN PRN PRN Reason: FLUSH AFTER USING IV ACCESS Allergies Allergy/AdvReac Type Severity Reaction Status Date / Time No Known Allergies Allergy Verified 12/18/17 21:14 Home Medications Medication Instructions Recorded Confirmed Type acetaminophen [Tylenol] 650 mg PO Q4H PRN 12/18/17 12/18/17 History aspirin 81 mg PO DAILY 12/18/17 12/18/17 History bisacodyl [Dulcolax (bisacodyl)] 10 mg [place] DAILY PRN 12/18/17 12/18/17 History dextromethorphan-quinidine 1 cap PO DAILY 12/18/17 12/18/17 History [Nuedexta] doxazosin [Cardura] 4 mg PO DAILY 12/18/17 12/18/17 History gabapentin [Neurontin] 100 mg PO BID 12/18/17 12/18/17 History lisinopril 20 mg PO BID 12/18/17 12/18/17 History lorazepam [Ativan] 0.5 mg PO BID 12/18/17 12/18/17 History multivitamin 1 tab PO DAILY 12/18/17 12/18/17 History quetiapine [Seroquel] 50 mg PO BID 12/18/17 12/18/17 History Exam Vital signs: Vital Signs 12/18/17 18:54 12/18/17 20:15 12/19/17 00:01 Temperature 97.9 F Pulse Rate 87 81 Respiratory Rate 22 16 Blood Pressure 103/74 137/83 Pulse Oximetry 95 96 100 12/19/17 01:07 12/19/17 04:00 12/19/17 05:39 Temperature 97.8 F Pulse Rate 91 H 70 80 Respiratory Rate 19 19 Blood Pressure 119/69 130/70 Pulse Oximetry 69 L 12/19/17 08:00 12/19/17 11:13 Temperature 97.7 F 97.9 F Pulse Rate 61 94 H Respiratory Rate 12 20 Blood Pressure 137/76 175/96 H Pulse Oximetry 78 L 72 L Intake & Output 12/18/17 12/19/17 12/19/17 18:59 06:59 18:59 Intake Total 2200 / 2200 850 / 850 Output Total 225 / 225 Balance 2200 / 2200 625 / 625 Weight 68.039 kg 67.7 kg Intake: IV 2200 / 2200 850 / 850 1/2 Normal Saline Inj 1,000 ML 800 / 800 @ 125 mls/hr IV.CONT .Q8H [facility] Rx#:[id number] Zosyn 2.25 GM Premix 50 ML @ 50 / 50 100 mls/hr IV.SIG ONCE ONE Rx#: [id number] NS Inj 100 ML @ Wide Open IV. 2100 / 2100 SIG .Q0M [facility] Rx#:[id number] Rocephin Inj 1,000 MG In NS Inj 100 / 100 100 ML @ 200 mls/hr IV.SIG ONCE ONE Rx#:[id number] Output: Urine 225 / 225 Other: Weight On Admission 68.039 kg Narrative: GENERAL: ill appearing elderly well developed patient. SKIN: Warm and dry. HEAD: Normocephalic. EYES: No scleral icterus. Rt eye blindness NECK: Supple, trachea midline. No JVD or lymphadenopathy. CARDIOVASCULAR: Regular rate and rhythm without murmurs, gallops, or rubs. RESPIRATORY: Breath sounds equal bilaterally. No accessory muscle use. GASTROINTESTINAL: Abdomen soft, non-tender, nondistended. EXTREMITIES: No edema NEUROLOGICAL: Awake, confused Results - Lab Results 12/19/17 06:50 12/19/17 06:50 Most recent lab results Calcium 7.9 mg/dL (8.5-10.1) L 12/19/17 06:50 Assessment and Plan - Assessment (1) Altered mental status Code(s): R41.82 - Altered mental status, unspecified Status: Acute (2) Acute UTI Code(s): N39.0 - Urinary tract infection, site not specified Status: Acute (3) Acute renal failure Code(s): N17.9 - Acute kidney failure, unspecified Status: Acute - Plan Patient has gram-negative rods in the urine and has been treated with Zosyn IV hydration of half normal saline at 125 cc an hour Monitor BMP Sodium 149 Creatinine is declining to 3.3 Patient has recurrent urinary tract infection Possible bladder retention or neurogenic bladder contributing factors Avoid nephrotoxins Avoid dye study (1) Altered mental status Qualifiers: Altered mental status type: unspecified Qualified Code(s): R41.82 - Altered mental status, unspecified (3) Acute renal failure Qualifiers: Acute renal failure type: unspecified Qualified Code(s): N17.9 - Acute kidney failure, unspecified
[2017-12-19] MEDS ORDERED: Piperacil/Tazo 2.25 GM Premix 50 ML IV.SIG SCH (14:00)
[2017-12-19] MEDS ORDERED: SODIUM CHLORIDE IV.CONT SCH (15:00)
[2017-12-19] MEDS ORDERED: [UNRECOGNIZED DRUG - OTHER] IV.CONT SCH (15:00)
[2017-12-19] MEDS ORDERED: SODIUM BICARBONATE IV.CONT SCH (15:00)
[2017-12-19 16:35] LABS: CKMB Percent 0.3 % (0.0-4.0); Creatine Kinase MB 14.4 ng/mL (0.5-3.6)
--- NOTE | 2017-12-19 17:48 | ECG ---
Date Performed: 12/18/2017 Time Performed: 20:23:44 PTAGE: 82 years EKG: ATRIAL FIBRILLATION LOW QRS VOLTAGE IN PRECORDIAL LEADS CONSIDER ANTEROSEPTAL MYOCARDIAL IN FARCTION, AGE INDETERMINATE INFERIOR MYOCARDIAL INFARCTION BASELINE ARTIFACT LIMITS ACCURATE INTERPRE TATION ABNORMAL ECG PREVIOUS TRACING : 06/28/2017 07.12 DOCTOR: Hunter Tomas Interpretating Date/Time 12/19/2017 17:58:19
--- NOTE | 2017-12-19 23:35 | US ---
EXAM DATE: 12/19/2017 12:00 AM EDT AGE/SEX: 82 years / Male INDICATIONS: Elevated lab values. CLINICAL DATA: This is the patient's initial encounter. Patient reports that signs and symptoms have been present for 1 day and indicates a pain score of Nonresponsive. MEDICAL/SURGICAL HISTORY: Hypertension. Anxiety. Constipation. Dementia. Pneumonia. Schizophren ia. Urinary tract infection. Appendectomy. COMPARISON: [facility] [place], [place] KIDNEY/RENAL/BLADDER, 12/19/2017. . MEASUREMENTS: Liver:__ 12.4 cm. Common Bile Duct:__ 5mm. Right Kidney:__ 7.5 x 3.9 x 3.3 cm. FINDINGS: Liver: Normal echotexture without focal lesion or ductal dilatation. Portal Vein: Hepatopedal flow seen in portal vein. Common Duct: No intraluminal mass or stone visualized. Gallbladder: Demonstrates no wall thickening or pericholecystic fluid. No stones visualized. Pancreas: Not well visualized. Right Kidney: Increased echotexture. No mass or hydronephrosis. Other: None. CONCLUSION: 1. Right upper quadrant abdominal ultrasound is limited due to overlying bowel gas. 2. No acute findings identified. 3. Previously identified right renal cyst is not seen on the current study. Electronically signed by: Danny Dean MD 12/19/2017 11:33 PM EDT
[2017-12-20] MEDS: Piperacil/Tazo 2.25 GM Premix 50 ML IV.SIG SCH ×3 (00:20→07:00)
[2017-12-20 06:06] LABS: Albumin 2.9 g/dL (3.4-5.0); Calcium 7.9 mg/dL (8.5-10.1); Carbon Dioxide 20.6 meq/L (21.0-32.0); Total Protein 6.6 g/dL (6.4-8.2)
[2017-12-20 06:26] LABS: CKMB Percent 0.1 % (0.0-4.0); Creatine Kinase MB 8.2 ng/mL (0.5-3.6)
[2017-12-20] MEDS: LORazepam 0.5 MG Tablet PO SCH ×3 (06:27→22:36)
[2017-12-20 07:17] LABS: Hepatitis A IgM Antibody Nonreactive (Nonreactive)
[2017-12-20 07:30] LABS: Hepatitits B Surface Antigen Nonreactive (Nonreactive)
[2017-12-20] MEDS ORDERED: Vancomycin Consult Pharmacy OTHER PRN (09:11)
[2017-12-20] MEDS ORDERED: Dextrose 50% in Water 50 ML Vial IV.PUSH PRN (09:14)
[2017-12-20] MEDS: Sodium Chloride 23.4% Inj 38.5 MEQ in Water for Inj, Sterile 1,000 ML IV.CONT SCH ×5 (09:32→21:21)
[2017-12-20] MEDS: Heparin - SQ 10,000 UNITS/ML Vial SQ SCH ×2 (09:37→22:37)
[2017-12-20] MEDS: Sodium Chloride 0.9% 2 ML Flush BID IV.FLUSH SCH ×2 (09:38→23:09)
[2017-12-20] MEDS ORDERED: Sodium Chlor 0.9% Inj 500 ML IV.SIG SCH (10:00)
--- NOTE | 2017-12-20 10:28 | P.PN ---
Subjective Interval history: Follow-up on patient with encephalopathy, rhabdomyolysis, acute kidney injury, UTI. Patient seen and examined. Patient is awake. He is nonverbal today with me. He does not appear to be in any acute distress. He appears comfortable. He does not follow any commands. Discussed with nursing staff, no overnight events noted. Physical Exam Vital signs: Vital Signs 12/19/17 11:13 12/19/17 15:46 12/19/17 19:53 Temperature 97.9 F 98.7 F 99.7 F H Pulse Rate 94 H 82 74 Respiratory Rate 20 12 19 Blood Pressure 175/96 H 139/75 165/98 H Pulse Oximetry 72 L 12/19/17 23:19 12/20/17 04:00 12/20/17 07:40 Temperature 97.7 F 99.7 F H 98.2 F Pulse Rate 72 71 85 Respiratory Rate 19 19 16 Blood Pressure 129/73 139/79 129/83 Pulse Oximetry 96 92 L 98 Intake & Output 12/19/17 12/20/17 12/20/17 18:59 06:59 18:59 Intake Total 1600 / 1600 1069.625 / 1290.062 1047.625 / 1059.625 Output Total 225 / 225 Balance 1375 / 1375 1069.625 / 8575.366 2759.625 / 1059.625 Weight 70.3 kg Intake: IV 1600 / 1600 1069.625 / 7154.630 0549.625 / 1059.625 1/2 Normal Saline Inj 1,000 ML 1500 / 1500 @ 125 mls/hr IV.CONT .Q8H ЕКАТЕРИНА Rx#:[id number] Sodium Chloride 23.4% Inj 38.5 1009.625 / 1009.625 MEQ In Sterile Water for Inj 1, 000 ML @ 125 mls/hr IV.CONT . Q8H5M ЕКАТЕРИНА Rx#:[id number] Sodium Chloride 23.4% Inj 38.5 1019.625 / 1019.625 MEQ Sodium Bicarbonate 8.4% Inj 10 MEQ In Sterile Water for Inj 1,000 ML @ 125 mls/hr IV. CONT .Q8H10M ЕКАТЕРИНА Rx#:[id number] Zosyn 2.25 GM Premix 50 ML @ 100 / 100 50 / 50 50 / 50 100 mls/hr IV.SIG Q6H ЕКАТЕРИНА Rx#: [id number] Output: Urine 225 / 225 Narrative: GENERAL: Thin cachectic appearing elderly -H[place]ian male patient, in no acute distress. Awake. Nonverbal. Does not follow commands. SKIN: Warm and dry. HEAD: Atraumatic. Normocephalic. EYES: Right eye eviscerated. No scleral icterus. No injection or drainage. ENT: No nasal bleeding or discharge. Mucous membranes pink and moist. NECK: Trachea midline. CARDIOVASCULAR: Regular rate and rhythm. RESPIRATORY: No accessory muscle use. Poor effort. Clear to auscultation. Breath sounds equal bilaterally. GASTROINTESTINAL: Abdomen soft, non-tender, nondistended. +BS. MUSCULOSKELETAL: Extremities without clubbing, cyanosis, or edema. NEUROLOGICAL: Awake, nonverbal. Does not follow commands. Contractures bilateral arms. Results - Labs CBC & Chem 7: 12/19/17 06:50 12/20/17 04:00 Laboratory Results - last 24 hr 12/18/17 12/18/17 12/19/17 20:18 21:33 14:47 Sodium 146 H Potassium 4.6 Chloride 113 H Carbon Dioxide 23.3 Anion Gap 10 BUN 48 H Creatinine 4.40 H Estimated GFR 16 L Random Glucose 86 Calcium 8.2 L Total Bilirubin 0.6 Direct Bilirubin Indirect Bilirubin AST 131 H ALT 36 Alkaline Phosphatase 82 Total Creatine Kinase 5467 H CK-MB (CK-2) 14.4 H CK-MB (CK-2) % 0.3 Troponin I 0.10 H Total Protein 6.9 Albumin 3.3 L Urine Color [place] Urine Clarity Turbid H Urine pH 5.0 Ur Specific [place] 1.017 Urine Protein 100 H Urine Glucose (UA) Negative Urine Ketones Trace H Urine Occult Blood Moderate H Urine Nitrate Negative Urine Bilirubin Negative Urine Urobilinogen 2.0 H Ur Leukocyte Esterase Moderate H Urine RBC 8 H Urine WBC Amorphous Sediment Moderate H Urine Bacteria Moderate H Urine Mucus Few H Micro UA Comment Cath-culture ind Urine Culture Comments Cath-cult indicated Hepatitis A IgM Ab Hep Bs Antigen Hep B Core IgM Ab Hep C IgG Ab 12/20/17 12/20/17 04:00 04:00 Sodium 142 Potassium 4.0 Chloride 111 H Carbon Dioxide 20.6 L Anion Gap 10 BUN 37 H Creatinine 2.01 H Estimated GFR 39 L Random Glucose 72 L Calcium 7.9 L Total Bilirubin 1.3 H Direct Bilirubin 0.3 H Indirect Bilirubin 1.0 H AST 130 H ALT 40 Alkaline Phosphatase 76 Total Creatine Kinase 5663 H CK-MB (CK-2) 8.2 H CK-MB (CK-2) % 0.1 Troponin I Total Protein 6.6 Albumin 2.9 L Urine Color Urine Clarity Urine pH Ur Specific [place] Urine Protein Urine Glucose (UA) Urine Ketones Urine Occult Blood Urine Nitrate Urine Bilirubin Urine Urobilinogen Ur Leukocyte Esterase Urine RBC Urine WBC Amorphous Sediment Urine Bacteria Urine Mucus Micro UA Comment Urine Culture Comments Hepatitis A IgM Ab Nonreactive Hep Bs Antigen Nonreactive Hep B Core IgM Ab Nonreactive Hep C IgG Ab Nonreactive Microbiology 12/18/17 20:18 Catheterized Urine Urine Culture - Final Escherichia coli Viridans streptococcus grp 12/18/17 19:43 Blood - Peripheral Aerobic Blood Culture - Preliminary gram positive cocci 12/18/17 19:43 Blood - Peripheral Anaerobic Blood Culture - Preliminary No growth in 1 day 12/18/17 19:35 Blood - Peripheral Aerobic Blood Culture - Preliminary gram positive cocci 12/18/17 19:35 Blood - Peripheral Anaerobic Blood Culture - Preliminary No growth in 1 day - Imaging Impressions Liver Ultrasound 12/19/17 00:00 CONCLUSION: 1. Right upper quadrant abdominal ultrasound is limited due to overlying bowel gas. 2. No acute findings identified. 3. Previously identified right renal cyst is not seen on the current study. Assessment and Plan - Plan 82-year-old male who is nonverbal, with history of schizophrenia, dementia, hypertension, anxiety, recurrent urinary tract infections. Sent in by rehab facility due to depressed mental status from baseline. GPC bacteremia, 4/4 bottles -Started on IV Vancomycin, pharmacy to dose -Consult infectious disease, appreciate assistance -repeat blood cultures pending, follow until finalized LLL PNA CXR shows left lower lobe consolidation -continue on IV Ceftriaxone per ID -Duonebs -monitor respiratory status UTI Urine cx growing E coli and strept Viridans -Continue on IV abx -Consult ID as stated above Recurrent episodes of Vtach Hx of paroxysmal afib -Consult Cardiology, appreciate assistance -obtain Luis and EKG -obtain echocardiogram -continuous cardiac monitoring Acute encephalopathy, suspect secondary to bacteremia, LLL PNA and urinary tract infection EEG neg Patient passed swallow evaluation with recommendations for pure and thin liquids -Consult Neurology, appreciate assistance Rhabdomyolysis -CK trending up. Give IVF bolus. Repeat CPK. -Continue with aggressive IV fluid replacement. Acute kidney injury on chronic kidney disease stage III. Creatinine 4.4. Renal US with no e/o hydronephrosis Cr improved to 2.01 -Nephrology following, appreciate assistance -Creatinine improving Hypertension Blood pressure borderline low. -Will hold off on blood pressure medications for now -Continue to monitor BP closely and adjust treatment as indicated Hypernatremia, resolved Na 149 -improved with change in IVF to 1/4NS -monitor Na level as indicated Hypoglycemia -monitor BS -Hypoglycemic protocol Transaminitis, possible shock liver Seroquel on hold Hep profile nonreactive liver US unremarkable -avoid hepatotoxic agents -monitor LFTs Moderate protein calorie malnutrition -Rn Traveling consulted. Request for calorie count. -add Suplena TID -patient needs assistance with all meals DVT prophylaxis Heparin sq Code Status: FULL Discussed Condition With: patient, nursing staff, Dr. Hansen, Dr. Moya Discharge Planning: Not ready for discharge
[2017-12-20 10:42] LABS: Magnesium 1.8 mg/dL (1.5-2.5)
[2017-12-20 10:45] LABS: Troponin I 0.06 ng/mL (0.02-0.05)
[2017-12-20] MEDS ORDERED: Vancomycin Inj 1,250 MG in Sodium Chlor 0.9% Inj 250 ML IV.SIG ONE (11:00)
--- NOTE | 2017-12-20 11:47 | MB ---
cc: Roe Adamson MD DATE: 12/20/2017 REASON FOR CONSULTATION: Ventricular tachycardia. HISTORY OF PRESENT ILLNESS: The patient is an 82-year-old -French male with a history of dementia, paroxysmal atrial fibrillation/flutter, schizophrenia, hypertension, reduced ejection fraction of 45%-50% by echo 10 years ago, who was admitted from his senior living due to decreased mental status from baseline as well as [id number] renal insufficiency. The patient is nonverbal and unable to answer any questions. He does appear to be resting comfortably, in no acute distress. PAST MEDICAL HISTORY: 1. Ejection fraction 45%-50% by echocardiogram 2007. 2. Hypertension. 3. Dementia. 4. Paroxysmal atrial fibrillation/flutter demonstrated by EKG 06/2017. 5. Schizophrenia. 6. Chronic renal insufficiency. PAST SURGICAL HISTORY: Appendectomy. CARDIAC MEDICATIONS AT HOME: Aspirin 81 mg daily, lisinopril 20 mg b.i.d., Cardura 4 mg daily. ALLERGIES: NO KNOWN DRUG ALLERGIES. FAMILY HISTORY: Noncontributory. SOCIAL HISTORY: Currently, unobtainable. He apparently is a nonsmoker with no history of alcohol abuse. REVIEW OF SYSTEMS: Currently, unobtainable. PHYSICAL EXAMINATION: VITAL SIGNS: Blood pressure 129/83 with a pulse of 85, respirations 16. GENERAL: He is a well-developed, thin, -French male in no acute distress. NECK: Jugular venous pressure is normal. Carotid pulses are 2+ bilaterally and without bruits. CHEST: Reveals diminished breath sounds diffusely. CARDIAC: He has a regular rhythm and rate without definite S3, S4, or murmur. ABDOMEN: He has a soft, nontender abdomen. Bowel sounds are present. There is no definite hepatosplenomegaly. EXTREMITIES: Reveals no clubbing, cyanosis, or edema. DIAGNOSTIC DATA: EKG shows baseline artifact, probable normal sinus rhythm, poor R-wave progression, left axis deviation, nonspecific T-wave abnormalities. Chest x-ray shows left lower lobe consolidation. Laboratory data includes WBC 10.0, hemoglobin 12.0, platelets 164. INR 1.0. Potassium 4.0, BUN 37, creatinine 2.01. AST 130, ALT 40. CK 5770 with 0.3% MB fraction. Troponin 0.08. IMPRESSION: Multiple salvos of wide complex tachycardia, mostly wide complex triplets, the longest run 7 beats in duration in this 82-year-old -French male with a history of reduced ejection fraction 45%-50% by echo 10 years ago, paroxysmal atrial fibrillation/flutter, dementia, hypertension, chronic renal insufficiency, now admitted with mental status changes, [id number] renal insufficiency, pneumonia. His multiple rhythm strips have been reviewed. Most of the strips are suggestive of an aberrantly conducted supraventricular tachycardia (preceding atrial activity, begins with long-short R-R interval) although ventricular origin for these salvos cannot be completely ruled out. Echocardiogram is pending. There is no definite evidence for acute coronary syndrome. CK-MB percentages are negative for myocardial infarction. Troponin level is minimally elevated, this in the setting of renal insufficiency. There is no definite evidence for congestive heart failure. RECOMMENDATIONS: 1. In light of his history of paroxysmal atrial fibrillation/flutter, wide complex salvos, recommend starting oral amiodarone. 2. Await his 2-D echo. 3. Initiate beta hermelinda therapy. 4. No JEFFERY inhibitor with his renal insufficiency. 5. Continue daily aspirin. The patient is a poor candidate for oral anticoagulation therapy. MD PATI Wolf/janice , 10:46 AM , 10:56 AM MTDD
--- NOTE | 2017-12-20 12:36 | P.CONID ---
History of Present Illness Service: Infectious disease Consult date: 12/20/17 Requesting Physician: Gypsy Hansen Reason for Consult: Evaluate patient with gram-negative UTI, and gram-positive bacteremia Primary Care Provider: Sandro Chaidez MD Family Provider: Sandro Chaidez MD Chief Complaint: Altered mental status History of Present Illness: Patient seen and examined. Records reviewed. Patient is an 82-year-old male, he is nonverbal, lives in a senior living, with history of schizophrenia, and dementia, and recurrent UTI, brought into the hospital for decreased level of consciousness. I am unclear as to work his normal baseline mental status is. 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 Since admission he had some low-grade temps. Chest x-ray showing some left lower lobe consolidation. Urinalysis has pyuria. Patient currently has a condom cath. Urine culture is reported as growing E. coli and strep viridans. His blood culture is growing gram-positive cocci in pairs and clusters. Infectious disease consultation has been requested to assist with evaluation and treatment of his infections. Review of Systems unobtainable due to mental status PMFSH - History History Provided By: Medical Record - Medical History Medical History: Medical History (Last Reviewed 12/20/17 @ 12:41 by Megan Moya MD) Anxiety Constipation Dementia Hypertension Pneumonia Schizophrenia UTI (urinary tract infection) - Surgical History Surgical History: Surgical History (Last Updated 12/20/17 @ 12:41 by Megan Moya MD) H/O enucleation of right eyeball History of appendectomy - Family History Family History: Family History (Last Reviewed 12/20/17 @ 12:35 by Megan Moya MD) Other Family estrangement - Tobacco History Smoking Status: Cognitive impairment - Alcohol History How Often Do You Have a Drink Containing Alcohol: Never - Substance Use History Substance History: Unable to Obtain - Travel History Recent Travel in the [place] Within the Last 8 Weeks: No Recent Travel Out of the Country Within the Last 8 Weeks: No - Immunization History Tetanus Immunization: <5 Years Hx Influenza Vaccine This Season: Yes Medications and Allergies Active Medications: Active Medications Al Hydroxide/Mg Hydroxide (Milk Of Master Liq) 30 ml PO Q12H PRN PRN Reason: Mild Constipation Last Admin: 12/20/17 09:33 Dose: 30 ml Amiodarone HCl (Cordarone) 400 mg PO Q12HR [facility] Aspirin (Aspirin Chew) 81 mg PO DAILY [facility] Last Admin: 12/20/17 09:32 Dose: 81 mg Bisacodyl (Dulcolax Supp) 10 mg RECTAL DAILY PRN PRN Reason: SEVERE CONSITIPATION Carvedilol (Coreg) 3.125 mg PO BID [facility] Dextrose (D50w Vial) 50 ml IV.PUSH UNSCH PRN PRN Reason: PER HYPOGLYCEMIA PROTOCOL Glucagon (Glucagon Inj) 1 mg OTHER UNSCH PRN PRN Reason: for Hypoglycemia Protocol Heparin Sodium (Porcine) (Heparin Inj) 5,000 units SQ BID [facility] Last Admin: 12/20/17 09:37 Dose: 5,000 units Sodium Chloride (Ns Inj) 1,000 mls @ 0 mls/hr IV.SIG .Q0M [facility] Last Infusion: 12/18/17 20:54 Dose: Infused Sodium Chloride (Ns Inj) 1,000 mls @ 0 mls/hr IV.SIG .Q0M [facility] Last Infusion: 12/18/17 20:54 Dose: Infused Sodium Chloride (Ns Inj) 100 mls @ 0 mls/hr IV.SIG .Q0M [facility] Last Infusion: 12/18/17 20:54 Dose: Infused Piperacillin/Tazobactam/Dextrose (Zosyn 2.25 Gm Premix) 50 mls @ 100 mls/hr IV.SIG Q6H [facility] Last Infusion: 12/20/17 07:00 Dose: Infused Sodium Chloride 38.5 meq/ (Sterile Water) 1,009.625 mls @ 125 mls/hr IV.CONT .Q8H5M [facility] Last Admin: 12/20/17 09:32 Dose: 125 mls/hr Sodium Chloride (Ns Inj) 500 mls @ 0 mls/hr IV.SIG BOLUS [facility] Lactulose (Lactulose Liq) 30 ml PO DAILY PRN PRN Reason: SEVERE CONSITIPATION Lorazepam (Ativan) 0.5 mg PO BID [facility] Last Admin: 12/20/17 09:32 Dose: 0.5 mg Pharmacy Profile Note (Vancomycin Consult Pharmacy) 1 each OTHER UNSCH PRN PRN Reason: Pharmacy to dose Quetiapine Fumarate (Seroquel) 50 mg PO BID [facility] Last Admin: 12/19/17 09:15 Dose: Not Given Sennosides (Senokot) 17.2 mg PO Q12H PRN PRN Reason: Moderate Constipation Sodium Chloride (Ns Flush) 2 ml IV.FLUSH BID ЕКАТЕРИНА Last Admin: 12/20/17 09:38 Dose: 2 ml Sodium Chloride (Ns Flush) 2 ml IV.FLUSH PRN PRN PRN Reason: FLUSH AFTER USING IV ACCESS Allergies Allergy/AdvReac Type Severity Reaction Status Date / Time No Known Allergies Allergy Verified 12/18/17 21:14 Home Medications Medication Instructions Recorded Confirmed Type acetaminophen [Tylenol] 650 mg PO Q4H PRN 12/18/17 12/18/17 History aspirin 81 mg PO DAILY 12/18/17 12/18/17 History bisacodyl [Dulcolax (bisacodyl)] 10 mg [place] DAILY PRN 12/18/17 12/18/17 History dextromethorphan-quinidine 1 cap PO DAILY 12/18/17 12/18/17 History [Nuedexta] doxazosin [Cardura] 4 mg PO DAILY 12/18/17 12/18/17 History gabapentin [Neurontin] 100 mg PO BID 12/18/17 12/18/17 History lisinopril 20 mg PO BID 12/18/17 12/18/17 History lorazepam [Ativan] 0.5 mg PO BID 12/18/17 12/18/17 History multivitamin 1 tab PO DAILY 12/18/17 12/18/17 History quetiapine [Seroquel] 50 mg PO BID 12/18/17 12/18/17 History Exam Vital signs: Vital Signs 12/19/17 15:46 12/19/17 19:53 12/19/17 23:19 Temperature 98.7 F 99.7 F H 97.7 F Pulse Rate 82 74 72 Respiratory Rate 12 19 19 Blood Pressure 139/75 165/98 H 129/73 Pulse Oximetry 96 12/20/17 04:00 12/20/17 07:40 12/20/17 11:54 Temperature 99.7 F H 98.2 F 98.7 F Pulse Rate 71 85 64 Respiratory Rate 19 18 Blood Pressure 139/79 129/83 146/87 H Pulse Oximetry 92 L 98 95 Intake & Output 12/19/17 12/20/17 12/20/17 18:59 06:59 18:59 Intake Total 1600 / 1600 1069.625 / 0265.140 3183.625 / 1177.625 Output Total 225 / 225 Balance 1375 / 1375 1069.625 / 0817.091 5908.625 / 1177.625 Weight 70.3 kg Intake: IV 1600 / 1600 1069.625 / 0250.094 9300.625 / 1059.625 1/2 Normal Saline Inj 1,000 ML 1500 / 1500 @ 125 mls/hr IV.CONT .Q8H ЕКАТЕРИНА Rx#:[id number] Sodium Chloride 23.4% Inj 38.5 1009.625 / 1009.625 MEQ In Sterile Water for Inj 1, 000 ML @ 125 mls/hr IV.CONT . Q8H5M ЕКАТЕРИНА Rx#:[id number] Sodium Chloride 23.4% Inj 38.5 1019.625 / 1019.625 MEQ Sodium Bicarbonate 8.4% Inj 10 MEQ In Sterile Water for Inj 1,000 ML @ 125 mls/hr IV. CONT .Q8H10M ЕКАТЕРИНА Rx#:[id number] Zosyn 2.25 GM Premix 50 ML @ 100 / 100 50 / 50 50 / 50 100 mls/hr IV.SIG Q6H ЕКАТЕРИНА Rx#: [id number] Oral 118 / 118 Output: Urine 225 / 225 Narrative: Physical Examination GENERAL: Patient is a well-nourished, well-developed male, awake and focusing, not following any commands, has contractures of his BUE and BLE, not in respiratory distress. SKIN: Cool and dry. No generalized rash, no ecchymoses and no evidence of embolic lesions. HEAD: Atraumatic. Normocephalic. No temporal wasting, or tenderness. EYES: [place] conjunctiva. No petechia or hemorrhage. Sunken in R orbit, enucleation?. No scleral icterus. No injection or drainage. EARS, NOSE AND THROAT: Nose without bleeding or purulent nasal discharge. No sinus tenderness. Mucous membranes pink and moist. NECK: Trachea midline. Stiff neck, whole body rigid. HEART: Regular rate and rhythm, no murmur heard. RESPIRATORY: Clear to auscultation. Decreased breath sounds at bases. ABDOMEN: Flat firm, bowel sounds present and normoactive, not tender. EXTREMITIES: No clubbing, cyanosis. BUE and BLE spastic and contracted. NEUROLOGICAL: Awake , not following. BUE and BLE contracted. PSYCHIATRIC: Unable to assess : Has condom cath in place. LINE: No evidence of infection Results - Labs CBC & Chem 7: 12/19/17 06:50 12/20/17 04:00 Labs: Laboratory Results - last 24 hr 12/18/17 12/19/17 12/20/17 21:33 14:47 04:00 Sodium 146 H 142 Potassium 4.6 4.0 Chloride 113 H 111 H Carbon Dioxide 23.3 20.6 L Anion Gap 10 10 BUN 48 H 37 H Creatinine 4.40 H 2.01 H Estimated GFR 16 L 39 L Random Glucose 86 72 L Calcium 8.2 L 7.9 L Magnesium Total Bilirubin 0.6 1.3 H Direct Bilirubin 0.3 H Indirect Bilirubin 1.0 H AST 131 H 130 H ALT 36 40 Alkaline Phosphatase 82 76 Total Creatine Kinase 5467 H 5663 H CK-MB (CK-2) 14.4 H 8.2 H CK-MB (CK-2) % 0.3 0.1 Troponin I 0.10 H Total Protein 6.9 6.6 Albumin 3.3 L 2.9 L Lipase Hepatitis A IgM Ab Hep Bs Antigen Hep B Core IgM Ab Hep C IgG Ab 12/20/17 12/20/17 04:00 04:00 Sodium Potassium Chloride Carbon Dioxide Anion Gap BUN Creatinine Estimated GFR Random Glucose Calcium Magnesium 1.8 Total Bilirubin Direct Bilirubin Indirect Bilirubin AST ALT Alkaline Phosphatase Total Creatine Kinase CK-MB (CK-2) CK-MB (CK-2) % Troponin I 0.06 H Total Protein Albumin Lipase 185 Hepatitis A IgM Ab Nonreactive Hep Bs Antigen Nonreactive Hep B Core IgM Ab Nonreactive Hep C IgG Ab Nonreactive - Imaging Impressions Liver Ultrasound 12/19/17 00:00 CONCLUSION: 1. Right upper quadrant abdominal ultrasound is limited due to overlying bowel gas. 2. No acute findings identified. 3. Previously identified right renal cyst is not seen on the current study. Head CT 12/18/17 19:25 CONCLUSION: 1. No acute findings in the brain. 2. Stable ischemic changes in the supratentorial brain. Chest X-Ray 12/18/17 19:26 CONCLUSION: Left lower lobe consolidation. Abdomen/Bladder Ultrasound 12/19/17 00:00 CONCLUSION: 1. No evidence of hydronephrosis. 2. Small benign-appearing right renal cyst measuring 1.2 cm. 3. No significant changes compared to the prior study. Assessment and Plan - Plan Impression UTI, no garcia - C/S E coli and Strep viridans Bacteremia, ?significance Renal insufficiency due to sepsis, no obstruction seen on US Hx schizophrenia and dementia Chronically bedridden Recommendation IV Rocephin Repeat BC Give one dose of Vanco Bladder scan Follow C/S Monitor progress I will determine course of Rx once work-up is completed I will follow along with you Thank you for this consultation
--- NOTE | 2017-12-20 14:25 | P.DIET ---
Nutritional Evaluation Type of nutrition evaluation: initial (Pt lives in a Snf) Nutrition consult regarding: Diet Evaluation Nutrition screening: [facility] [place]: 12/20/17 [facility] Cal[place] Counting Subjective Oral Diet Tolerance Assessment Indicates: Swallowing problems Subjective Comments: Pt receiving ECHO at bedside when visited. Spoke w/RN Mayela regarding initiation of Calorie Count. Pt w/100% po for breakfast today and approx. 25% for lunch. Pt needs to be fed. Objective - Diagnosis UTI, AMS, Renal Dailure, Rhabdomyolysis - Objective [place] body weight: 75.5 kg % IBW: 90 Body Weight Used for Calculations: Actual (67.7 kg) Energy Needs - Lower Range (kCal/kg): 28 Energy Needs - Upper Range (kCal/kg): 33 Lower Limit kCal/kg (kCals): 1,896 Upper Limit kCal/kg (kCals): 2,234 Lower Limit Protein Factor (Grams per Kg): 0.7 Upper Limit Protein Factor (Grams per Kg): 0.9 Lower Protein Needs (Protein): 47 Upper Protein Needs (Protein): 61 Fluid Factor (ml/kg): 28 Estimated Fluid Needs (ml): 1,896 Dietitian Reviewed in Medical Record: Current diet, Curent medications, Intake & Output, Labs, Medical history Diet Order: Cardiac Pureed Speech Therapy Recommendations: Yes (Pureed Thin Liquids) Objective Comments: PMH: Anxiety, Constipation, UTI, Dementia, HTN, Pneumonia, Schizophrenia Labs Include: Na 146, Creatinine 4.4, estGFR 16, POC glucose 89 UOP 950ml Feeding - Current PO Supplement Current Supplement: Ensure Enlive Current Frequency of Supplement: Three times a day Current kCals Provided by Supplement: 350 Current Protein Provided by Supplement: 20 Assessment Assessment: Pt is at nutritional risk r/t diagnosis and poor po intake. Pt is a dependent feed. MDC for Calorie Count started today 12/20 through 12/22 w/Nutrition Recs to follow 12/22. Ensure Enlive TID per MD. Pt w/CKD-stage III; therefore, Rec Suplena oral supplement TID(= 425 kcal and 10.6g Protein per serving). Monitor renal labs closely. Dietitian following. Recommendations: 1. Pt is a dependent feed 2. MDC for Calorie Count started today 12/20 through 12/22 w/Nutrition Recs to follow 12/22 3. Ensure Enlive TID per MD 4. Pt w/CKD-stage III; therefore, Rec Suplena oral supplement TID 5. Monitor renal labs closely 6. Dietitian following Dietitian to Monitor: Lab values, Electrolytes, Renal labs, Supplement acceptance, Intake & Output, Diet tolerance, Weight change, PO Intake, Swallow recommendations, Medical course
--- NOTE | 2017-12-20 15:21 | ECHRPT ---
Indication: Cardiomyopathy CONCLUSIONS Normal left ventricular size. Wall thickness is mildly increased. The left ventricular systolic fun ction is low normal with an estimated ejection fraction of 50%. No definite regional wall motion abnormalities. Mild aortic leaflet sclerosis. BP: / HR: Rhythm: MEASUREMENTS (Male / Female) Normal Values Technical Quality: 2D ECHO LV Diastolic Diameter PLAX 4.1 cm 4.2 - 5.9 / 3.9 - 5.3 cm LV Systolic Diameter PLAX 3.6 cm IVS Diastolic Thickness 0.9 cm 0.6 - 1.0 / 0.6 - 0.9 cm LVPW Diastolic Thickness 1.1 cm 0.6 - 1.0 / 0.6 - 0.9 cm LV Relative Wall Thickness 0.5 RV Internal Dim ED PLAX 1.8 cm LVOT Diameter 2.1 cm Aortic Root Diameter 2.8 cm LA Systolic Diameter LX 3.0 cm 3.0 - 4.0 / 2.7 - 3.8 cm LV Ejection Fraction MOD 4C 43.8 % LV Ejection Fraction 4C AL 45.6 % M-MODE Aortic Root Diameter MM 3.7 cm LA Systolic Diameter MM 3.2 cm LA Ao Ratio MM 0.9 AV Cusp Separation MM 1.9 cm DOPPLER AV Peak Velocity 131.0 cm/s AV Peak Gradient 6.9 mmHg LVOT Peak Velocity 67.1 cm/s LVOT Peak Gradient 1.8 mmHg AV Area Cont Eq pk 1.8 cm Mitral E Point Velocity 40.0 cm/s LV E' Lateral Velocity 10.5 cm/s Mitral E to LV E' Lateral Ratio 3.8 LV E' Septal Velocity 9.8 cm/s Mitral E to LV E' Septal Ratio 4.1 TR Peak Velocity 239.0 cm/s TR Peak Gradient 22.8 mmHg Right Atrial Pressure 10.0 mmHg Pulmonary Artery Systolic Pressu 32.8 mmHg Right Ventricular Systolic Press 32.8 mmHg PV Peak Velocity 89.5 cm/s PV Peak Gradient 3.2 mmHg FINDINGS LEFT VENTRICLE Normal left ventricular size. Wall thickness is mildly increased. The left ventricular systolic func tion is low normal with an estimated ejection fraction of 50%. No definite regional wall motion abnormalities. RIGHT VENTRICLE Normal right ventricular size and systolic function. LEFT ATRIUM The left atrial size is normal. RIGHT ATRIUM The right atrial size is normal. ATRIAL SEPTUM Normal atrial septal thickness without atrial level shunting by limited color doppler interrogation. AORTA The aortic root and proximal ascending aorta are normal in size on limited imaging. MITRAL VALVE Structurally normal mitral valve. No mitral valve stenosis or regurgitation. AORTIC VALVE Mild aortic leaflet sclerosis. TRICUSPID VALVE Structurally normal tricuspid valve. No tricuspid valve stenosis or regurgitation. PULMONARY VALVE No pulmonary valve regurgitation or stenosis. VESSELS The inferior vena cava is normal in size. PERICARDIUM No pericardial effusion. Roe Adamson MD (Electronically Signed) Final Date:20 December 2017 15:19
[2017-12-20 17:18] LABS: CKMB Percent 0.1 % (0.0-4.0); Creatine Kinase MB 4.8 ng/mL (0.5-3.6)
--- NOTE | 2017-12-20 17:33 | P.PNNP ---
Subjective Interval history: Patient had baseline Physical Exam Vital signs: Vital Signs 12/19/17 19:53 12/19/17 23:19 12/20/17 04:00 Temperature 99.7 F H 97.7 F 99.7 F H Pulse Rate 74 72 71 Respiratory Rate 19 19 19 Blood Pressure 165/98 H 129/73 139/79 Pulse Oximetry 96 92 L 12/20/17 07:05 12/20/17 07:40 12/20/17 11:00 Temperature 98.2 F Pulse Rate 87 85 60 Respiratory Rate 16 Blood Pressure 129/83 Pulse Oximetry 98 12/20/17 11:54 12/20/17 16:03 Temperature 98.7 F 99.2 F Pulse Rate 64 72 Respiratory Rate 18 18 Blood Pressure 146/87 H 136/82 Pulse Oximetry 95 95 Intake & Output 12/19/17 12/20/17 12/20/17 18:59 06:59 18:59 Intake Total 1600 / 1600 1069.625 / 9774.423 8397.625 / 2027.625 Output Total 225 / 225 950 / 950 Balance 1375 / 1375 1069.625 / 4583.487 2058.625 / 1077.625 Weight 70.3 kg Intake: IV 1600 / 1600 1069.625 / 0225.872 9582.625 / 1909.625 1/2 Normal Saline Inj 1,000 ML 1500 / 1500 @ 125 mls/hr IV.CONT .Q8H [facility] Rx#:[id number] Sodium Chloride 23.4% Inj 38.5 1509.625 / 1509.625 MEQ In Sterile Water for Inj 1, 000 ML @ 125 mls/hr IV.CONT . Q8H5M [facility] Rx#:[id number] Sodium Chloride 23.4% Inj 38.5 1019.625 / 1019.625 MEQ Sodium Bicarbonate 8.4% Inj 10 MEQ In Sterile Water for Inj 1,000 ML @ 125 mls/hr IV. CONT .Q8H10M [facility] Rx#:[id number] Zosyn 2.25 GM Premix 50 ML @ 100 / 100 50 / 50 50 / 50 100 mls/hr IV.SIG Q6H [facility] Rx#: [id number] Vancomycin Inj 1,250 MG In NS 250 / 250 Inj 250 ML @ 250 mls/hr IV.SIG ONCE ONE Rx#:[id number] Rocephin Inj 2,000 MG In NS Inj 100 / 100 100 ML @ 200 mls/hr IV.SIG Q24H [facility] Rx#:[id number] Oral 118 / 118 Output: Urine 225 / 225 950 / 950 Narrative: GENERAL: Thin cachectic appearing elderly -Beninese male patient, in no acute distress. Awake. Nonverbal. Does not follow commands. SKIN: Warm and dry. HEAD: Atraumatic. Normocephalic. EYES: Right eye eviscerated. No scleral icterus. No injection or drainage. ENT: No nasal bleeding or discharge. Mucous membranes pink and moist. NECK: Trachea midline. CARDIOVASCULAR: Regular rate and rhythm. RESPIRATORY: No accessory muscle use. Poor effort. Clear to auscultation. Breath sounds equal bilaterally. GASTROINTESTINAL: Abdomen soft, non-tender, nondistended. +BS. MUSCULOSKELETAL: Extremities without clubbing, cyanosis, or edema. NEUROLOGICAL: Awake, nonverbal. Does not follow commands. Contractures bilateral arms. Assessment and Plan - Assessment (1) Altered mental status Code(s): R41.82 - Altered mental status, unspecified Status: Acute Qualifiers: Qualified Code(s): R41.82 - Altered mental status, unspecified (2) Acute UTI Code(s): N39.0 - Urinary tract infection, site not specified Status: Acute (3) Acute renal failure Code(s): N17.9 - Acute kidney failure, unspecified Status: Acute Qualifiers: Qualified Code(s): N17.9 - Acute kidney failure, unspecified - Plan Patient has gram-negative rods in the urine and has been treated with Zosyn IV hydration of half normal saline at 125 cc an hour Monitor BMP Sodium 142 Creatinine is declining to 2.01 Moderate rhabdomyolysis resolving with hydration Patient has recurrent urinary tract infection Possible bladder retention or neurogenic bladder contributing factors Avoid nephrotoxins Avoid dye study
--- NOTE | 2017-12-20 20:44 | ECG ---
Date Performed: 12/20/2017 Time Performed: 10:11:54 PTAGE: 82 years EKG: Sinus rhythm FREQUENT PACS MARKED LEFT AXIS DEVIATION ABNORMAL ECG PREVIOUS TRACING : 12/18/2017 20.23 Since the previous tracing, no significant change noted DOCTOR: Rosario Copeland Interpretating Date/Time 12/20/2017 20:44:24
[2017-12-20] MEDS ORDERED: Amiodarone 200 MG Tablet PO SCH (21:00)
[2017-12-21 01:05] LABS: Calcium 8.4 mg/dL (8.5-10.1); Carbon Dioxide 24.2 meq/L (21.0-32.0); Phosphorus 2.1 mg/dL (2.5-4.9); Potassium 3.8 meq/L (3.5-5.1)
[2017-12-21 06:02] LABS: Calcium 8.3 mg/dL (8.5-10.1); Carbon Dioxide 26.6 meq/L (21.0-32.0)
[2017-12-21 06:16] LABS: CKMB Percent 0.1 % (0.0-4.0); Creatine Kinase MB 3.1 ng/mL (0.5-3.6)
[2017-12-21] MEDS: Sodium Chloride 23.4% Inj 38.5 MEQ in Water for Inj, Sterile 1,000 ML IV.CONT SCH ×3 (06:20→16:49)
[2017-12-21 06:36] LABS: Potassium 4.1 meq/L (3.5-5.1)
--- NOTE | 2017-12-21 08:00 | P.PNCA ---
Subjective Interval history: Giggling. Nonverbal. Appears comfortable. Medications and Allergies Active Medications: Active Medications Al Hydroxide/Mg Hydroxide (Milk Of Master Liq) 30 ml PO Q12H PRN PRN Reason: Mild Constipation Last Admin: 12/20/17 09:33 Dose: 30 ml Albuterol (Duoneb Neb (Nicole)) 1 ampul NEB Q6HR WHILE AWAKE NEB [facility] Last Admin: 12/20/17 22:10 Dose: 1 ampul Amiodarone HCl (Cordarone) 400 mg PO Q12HR [facility] Last Admin: 12/20/17 22:36 Dose: 400 mg Aspirin (Aspirin Chew) 81 mg PO DAILY [facility] Last Admin: 12/20/17 09:32 Dose: 81 mg Bisacodyl (Dulcolax Supp) 10 mg RECTAL DAILY PRN PRN Reason: SEVERE CONSITIPATION Carvedilol (Coreg) 3.125 mg PO BID [facility] Last Admin: 12/20/17 22:36 Dose: 3.125 mg Dextrose (D50w Vial) 50 ml IV.PUSH UNSCH PRN PRN Reason: PER HYPOGLYCEMIA PROTOCOL Glucagon (Glucagon Inj) 1 mg OTHER UNSCH PRN PRN Reason: for Hypoglycemia Protocol Heparin Sodium (Porcine) (Heparin Inj) 5,000 units SQ BID [facility] Last Admin: 12/20/17 22:37 Dose: 5,000 units Sodium Chloride (Ns Inj) 1,000 mls @ 0 mls/hr IV.SIG .Q0M [facility] Last Infusion: 12/18/17 20:54 Dose: Infused Sodium Chloride (Ns Inj) 1,000 mls @ 0 mls/hr IV.SIG .Q0M [facility] Last Infusion: 12/18/17 20:54 Dose: Infused Sodium Chloride (Ns Inj) 100 mls @ 0 mls/hr IV.SIG .Q0M [facility] Last Infusion: 12/18/17 20:54 Dose: Infused Sodium Chloride 38.5 meq/ (Sterile Water) 1,009.625 mls @ 125 mls/hr IV.CONT .Q8H5M [facility] Last Admin: 12/21/17 06:20 Dose: 125 mls/hr Sodium Chloride (Ns Inj) 500 mls @ 0 mls/hr IV.SIG BOLUS NICOLE Ceftriaxone Sodium 2,000 mg/ (Sodium Chloride) 100 mls @ 200 mls/hr IV.SIG Q24H [facility] Last Infusion: 12/20/17 14:41 Dose: Infused Lactulose (Lactulose Liq) 30 ml PO DAILY PRN PRN Reason: SEVERE CONSITIPATION Lorazepam (Ativan) 0.5 mg PO BID [facility] Last Admin: 12/20/17 22:36 Dose: 0.5 mg Pharmacy Profile Note (Vancomycin Consult Pharmacy) 1 each OTHER UNSCH PRN PRN Reason: Pharmacy to dose Quetiapine Fumarate (Seroquel) 50 mg PO BID [facility] Last Admin: 12/19/17 09:15 Dose: Not Given Sennosides (Senokot) 17.2 mg PO Q12H PRN PRN Reason: Moderate Constipation Sodium Chloride (Ns Flush) 2 ml IV.FLUSH BID [facility] Last Admin: 12/20/17 23:09 Dose: 2 ml Sodium Chloride (Ns Flush) 2 ml IV.FLUSH PRN PRN PRN Reason: FLUSH AFTER USING IV ACCESS Allergies Allergy/AdvReac Type Severity Reaction Status Date / Time No Known Allergies Allergy Verified 12/18/17 21:14 Home Medications Medication Instructions Recorded Confirmed Type acetaminophen [Tylenol] 650 mg PO Q4H PRN 12/18/17 12/18/17 History aspirin 81 mg PO DAILY 12/18/17 12/18/17 History bisacodyl [Dulcolax (bisacodyl)] 10 mg OR DAILY PRN 12/18/17 12/18/17 History dextromethorphan-quinidine 1 cap PO DAILY 12/18/17 12/18/17 History [Nuedexta] doxazosin [Cardura] 4 mg PO DAILY 12/18/17 12/18/17 History gabapentin [Neurontin] 100 mg PO BID 12/18/17 12/18/17 History lisinopril 20 mg PO BID 12/18/17 12/18/17 History lorazepam [Ativan] 0.5 mg PO BID 12/18/17 12/18/17 History multivitamin 1 tab PO DAILY 12/18/17 12/18/17 History quetiapine [Seroquel] 50 mg PO BID 12/18/17 12/18/17 History Physical Exam Vital signs: Vital Signs 12/20/17 11:00 12/20/17 11:54 12/20/17 15:15 Temperature 98.7 F Pulse Rate 60 64 95 H Respiratory Rate 18 Blood Pressure 146/87 H Pulse Oximetry 95 12/20/17 16:03 12/20/17 20:00 12/20/17 22:10 Temperature 99.2 F 98.6 F Pulse Rate 72 63 63 Respiratory Rate 18 20 20 Blood Pressure 136/82 161/102 H Pulse Oximetry 95 94 L 12/21/17 00:00 12/21/17 04:41 12/21/17 07:50 Temperature 100.0 F H 99.0 F 97.4 F L Pulse Rate 70 65 Respiratory Rate 20 20 Blood Pressure 151/88 H 168/100 H Pulse Oximetry 97 99 Intake & Output 12/20/17 12/21/17 12/21/17 18:59 06:59 18:59 Intake Total 2027.625 / 2027.625 1519.250 / 5859.182 7167 / 1500 Output Total 2149 / 0 1900 / 1900 Balance -122.375 / -122.375 -380.750 / -556.903 6252 / 1500 Weight 69.2 kg Intake: IV 1909.625 / 6605.612 4991.250 / 1519.250 Sodium Chloride 23.4% Inj 38.5 1509.625 / 5371.424 5110.250 / 1519.250 MEQ In Sterile Water for Inj 1, 000 ML @ 125 mls/hr IV.CONT . Q8H5M [facility] Rx#:[id number] Zosyn 2.25 GM Premix 50 ML @ 50 / 50 100 mls/hr IV.SIG Q6H [facility] Rx#: [id number] Vancomycin Inj 1,250 MG In NS 250 / 250 Inj 250 ML @ 250 mls/hr IV.SIG ONCE ONE Rx#:[id number] Rocephin Inj 2,000 MG In NS Inj 100 / 100 100 ML @ 200 mls/hr IV.SIG Q24H [facility] Rx#:[id number] Oral 118 / 118 Other 1500 / 1500 Output: Urine 2149 / 0 1900 / 1900 Other: Other Intake Source Saline Solution Date of Last Bowel Movement 12/20/17 # Bowel Movements 1 - Constitutional no acute distress - Routine Neck Exam Absent: JVD - Routine Respiratory Exam Present: decreased breath sounds - Routine Cardiovascular Exam Present: S1, S2, irregularly irregular. Absent: murmur, gallop - Routine Abdominal Exam Present: soft, normoactive bowel sounds. Absent: tenderness, organomegaly - Routine Extremities Exam Absent: cyanosis, clubbing, edema Results 12/19/17 06:50 12/21/17 04:08 Cardiac Enzymes 12/18/17 12/19/17 12/19/17 Range/Units 21:33 06:50 06:50 AST 131 H 139 H (15-37) U/L CK-MB (CK-2) 18.1 H (0.5-3.6) ng/mL Troponin I 0.10 H 0.08 H (0.02-0.05) ng/mL 12/19/17 12/20/17 12/20/17 Range/Units 14:47 04:00 04:00 AST 130 H (15-37) U/L CK-MB (CK-2) 14.4 H 8.2 H (0.5-3.6) ng/mL Troponin I 0.06 H (0.02-0.05) ng/mL 12/20/17 12/21/17 Range/Units 15:54 04:08 AST (15-37) U/L CK-MB (CK-2) 4.8 H 3.1 (0.5-3.6) ng/mL Troponin I (0.02-0.05) ng/mL Comprehensive Metabolic Panel 12/18/17 12/19/17 12/20/17 Range/Units 21:33 06:50 04:00 Sodium 146 H 149 H 142 (136-145) meq/L Potassium 4.6 4.2 4.0 (3.5-5.1) meq/L Chloride 113 H 114 H 111 H (98-107) meq/L Carbon Dioxide 23.3 25.7 20.6 L (21.0-32.0) meq/L BUN 48 H 44 H 37 H (7-18) mg/dL Creatinine 4.40 H 3.37 H 2.01 H (0.60-1.30) mg/dL Calcium 8.2 L 7.9 L 7.9 L (8.5-10.1) mg/dL Direct Bilirubin 0.3 H (0.0-0.2) mg/dL Indirect Bilirubin 1.0 H (0.0-0.8) mg/dL AST 131 H 139 H 130 H (15-37) U/L ALT 36 38 40 (12-78) U/L Alkaline Phosphatase 82 76 76 (45-117) U/L Total Protein 6.9 6.7 6.6 (6.4-8.2) g/dL Albumin 3.3 L 3.0 L 2.9 L (3.4-5.0) g/dL 12/21/17 12/21/17 Range/Units 00:39 04:08 Sodium 141 140 (136-145) meq/L Potassium 3.8 4.1 (3.5-5.1) meq/L Chloride 109 H 108 H (98-107) meq/L Carbon Dioxide 24.2 26.6 (21.0-32.0) meq/L BUN 32 H 32 H (7-18) mg/dL Creatinine 1.61 H 1.62 H (0.60-1.30) mg/dL Calcium 8.4 L 8.3 L (8.5-10.1) mg/dL Direct Bilirubin (0.0-0.2) mg/dL Indirect Bilirubin (0.0-0.8) mg/dL AST (15-37) U/L ALT (12-78) U/L Alkaline Phosphatase (45-117) U/L Total Protein (6.4-8.2) g/dL Albumin (3.4-5.0) g/dL Intake and Output 12/20/17 12/21/17 12/21/17 22:59 06:59 14:59 Intake Total 1009.625 / 2568.888 3616.625 / 3906.467 4362 / 1500 Output Total 1300 / 1300 1800 / 1800 Balance -290.375 / -290.375 -790.375 / -187.966 1803 / 1500 Intake: IV 1009.625 / 5352.436 4823.625 / 1009.625 Sodium Chloride 23.4% Inj 38.5 1009.625 / 2734.758 1733.625 / 1009.625 MEQ In Sterile Water for Inj 1, 000 ML @ 125 mls/hr IV.CONT . Q8H5M [facility] Rx#:[id number] Other 1500 / 1500 Output: Urine 1300 / 1300 1800 / 1800 Other: Other Intake Source Saline Solution Date of Last Bowel Movement 09/26/18 # Bowel Movements 1 Weight 69.2 kg - Imaging and Cardiology Imaging: Impressions Abdomen/Bladder Ultrasound 12/19/17 00:00 CONCLUSION: 1. No evidence of hydronephrosis. 2. Small benign-appearing right renal cyst measuring 1.2 cm. 3. No significant changes compared to the prior study. Liver Ultrasound 12/19/17 00:00 CONCLUSION: 1. Right upper quadrant abdominal ultrasound is limited due to overlying bowel gas. 2. No acute findings identified. 3. Previously identified right renal cyst is not seen on the current study. Assessment and Plan - Assessment (1) Wide-complex tachycardia Code(s): I47.2 - Ventricular tachycardia Status: Acute Plan: One ~15 beat run of wide complex tachycardia this morning, otherwise no significant wide complex salvoes. Rhythm predominantly atrial fib/flutter. EF low normal 50% by echo with no valvular disease. Two 2.8 second pauses also noted on monitoring. REC overall conservative therapy, stop carvedilol in light of the pauses, drop Amiodarone dosing to 400 mg qd (2) Atrial fibrillation and flutter Code(s): I48.91 - Unspecified atrial fibrillation; I48.92 - Unspecified atrial flutter Status: Acute Plan: Rhythm predominantly atrial fib/flutter with controlled ventricular response. EF low normal by echo, ~50%. Patient overall poor candidate for oral anticoagulation therapy. Two 2.8 second pauses overnight. REC continue Amiodarone, daily aspirin, to stop carvedilol in light of 2.8 second pauses - Plan Code Status: full code
[2017-12-21] MEDS: Heparin - SQ 10,000 UNITS/ML Vial SQ SCH ×2 (09:59→20:31)
[2017-12-21] MEDS: Amiodarone 200 MG Tablet PO SCH (10:00)
[2017-12-21] MEDS: LORazepam 0.5 MG Tablet PO SCH ×2 (10:02→20:31)
[2017-12-21] MEDS: Sodium Chloride 0.9% 2 ML Flush BID IV.FLUSH SCH ×2 (10:02→20:31)
--- NOTE | 2017-12-21 11:41 | P.PN ---
Subjective Interval history: Follow-up on patient with encephalopathy, rhabdomyolysis, acute kidney injury, UTI. Patient seen and examined. Patient appears comfortable. He is nonverbal. Sister is at the bedside. All of her questions were addressed and answered. She feels he is much improved but has not returned to his baseline. She is asking if we can rule out CVA. DW nursing staff, no acute events noted overnight. Physical Exam Vital signs: Vital Signs 12/20/17 11:54 12/20/17 15:15 12/20/17 16:03 Temperature 98.7 F 99.2 F Pulse Rate 64 95 H 72 Respiratory Rate 18 18 Blood Pressure 146/87 H 136/82 Pulse Oximetry 95 95 12/20/17 20:00 12/20/17 22:10 12/21/17 00:00 Temperature 98.6 F 100.0 F H Pulse Rate 63 63 70 Respiratory Rate 20 20 20 Blood Pressure 161/102 H 151/88 H Pulse Oximetry 94 L 97 12/21/17 04:41 12/21/17 07:50 12/21/17 09:14 Temperature 99.0 F 97.4 F L Pulse Rate 65 63 Respiratory Rate 20 18 Blood Pressure 168/100 H Pulse Oximetry 99 99 Intake & Output 12/20/17 12/21/17 12/21/17 18:59 06:59 18:59 Intake Total 7.625 / 202.625 1519.250 / 5130.165 5553 / 1500 Output Total 2150 / 2150 1900 / 1900 Balance -122.375 / -122.375 -380.750 / -168.610 4900 / 1500 Weight 69.2 kg Intake: IV 1909.625 / 9085.634 7536.250 / 1519.250 Sodium Chloride 23.4% Inj 38.5 1509.625 / 1911.845 3269.250 / 1519.250 MEQ In Sterile Water for Inj 1, 000 ML @ 125 mls/hr IV.CONT . Q8H5M [facility] Rx#:[id number] Zosyn 2.25 GM Premix 50 ML @ 50 / 50 100 mls/hr IV.SIG Q6H [facility] Rx#: [id number] Vancomycin Inj 1,250 MG In NS 250 / 250 Inj 250 ML @ 250 mls/hr IV.SIG ONCE ONE Rx#:[id number] Rocephin Inj 2,000 MG In NS Inj 100 / 100 100 ML @ 200 mls/hr IV.SIG Q24H [facility] Rx#:[id number] Oral 118 / 118 Other 1500 / 1500 Output: Urine 2150 / 2150 1900 / 1900 Other: Other Intake Source Saline Solution Date of Last Bowel Movement 12/20/17 # Bowel Movements 1 Narrative: GENERAL: Thin cachectic appearing elderly -Iranian male patient, in no acute distress. Awake. Nonverbal. Does not follow commands. Appears to track with left eye. Sister at the bedside. SKIN: Warm and dry. HEAD: Atraumatic. Normocephalic. EYES: Right eye eviscerated. No scleral icterus. No injection or drainage. ENT: No nasal bleeding or discharge. Mucous membranes pink and moist. NECK: Trachea midline. CARDIOVASCULAR: Regular rate and rhythm. RESPIRATORY: No accessory muscle use. Poor effort. Clear to auscultation anteriorly. Breath sounds equal bilaterally. GASTROINTESTINAL: Abdomen soft, non-tender, nondistended. +BS. MUSCULOSKELETAL: Extremities without clubbing, cyanosis, or edema. NEUROLOGICAL: Awake, nonverbal. Does not follow commands. Contractures bilateral arms. Results - Labs CBC & Chem 7: 12/19/17 06:50 12/21/17 04:08 Laboratory Results - last 24 hr 12/18/17 12/20/17 12/20/17 21:33 12:29 15:54 Sodium 146 H Potassium 4.6 Chloride 113 H Carbon Dioxide 23.3 Anion Gap 10 BUN 48 H Creatinine 4.40 H Estimated GFR 16 L POC Glucose 89 Random Glucose 86 Calcium 8.2 L Phosphorus Magnesium Total Bilirubin 0.6 AST 131 H ALT 36 Alkaline Phosphatase 82 Total Creatine Kinase 4821 H CK-MB (CK-2) 4.8 H CK-MB (CK-2) % 0.1 Troponin I 0.10 H Total Protein 6.9 Albumin 3.3 L Random Vancomycin 12/20/17 12/20/17 12/21/17 17:52 22:51 00:39 Sodium 141 Potassium 3.8 Chloride 109 H Carbon Dioxide 24.2 Anion Gap 8 BUN 32 H Creatinine 1.61 H Estimated GFR 50 L POC Glucose 80 104 Random Glucose 103 Calcium 8.4 L Phosphorus 2.1 L Magnesium 2.0 Total Bilirubin AST ALT Alkaline Phosphatase Total Creatine Kinase CK-MB (CK-2) CK-MB (CK-2) % Troponin I Total Protein Albumin Random Vancomycin 12/21/17 12/21/17 04:08 04:08 Sodium 140 Potassium 4.1 Chloride 108 H Carbon Dioxide 26.6 Anion Gap 5 BUN 32 H Creatinine 1.62 H Estimated GFR 50 L POC Glucose Random Glucose 95 Calcium 8.3 L Phosphorus Magnesium Total Bilirubin AST ALT Alkaline Phosphatase Total Creatine Kinase 4335 H CK-MB (CK-2) 3.1 CK-MB (CK-2) % 0.1 Troponin I Total Protein Albumin Random Vancomycin 10.4 Microbiology 12/20/17 12:52 Blood - Peripheral Aerobic Blood Culture - Preliminary No growth in 1 day 12/20/17 12:52 Blood - Peripheral Anaerobic Blood Culture - Preliminary No growth in 1 day 12/20/17 12:47 Blood - Peripheral Aerobic Blood Culture - Preliminary No growth in 1 day 12/20/17 12:47 Blood - Peripheral Anaerobic Blood Culture - Preliminary No growth in 1 day 12/18/17 19:43 Blood - Peripheral Aerobic Blood Culture - Preliminary Staphylococcus coag negative 12/18/17 19:43 Blood - Peripheral Anaerobic Blood Culture - Preliminary Staphylococcus coag negative 12/18/17 19:35 Blood - Peripheral Aerobic Blood Culture - Preliminary Staphylococcus coag negative 12/18/17 19:35 Blood - Peripheral Anaerobic Blood Culture - Preliminary Staphylococcus coag negative 12/18/17 20:18 Catheterized Urine Urine Culture - Final Escherichia coli Viridans streptococcus grp Assessment and Plan - Plan 82-year-old male who is nonverbal, with history of schizophrenia, dementia, hypertension, anxiety, recurrent urinary tract infections. Sent in by rehab facility due to depressed mental status from baseline. Staph coag neg bacteremia, 4/4 bottles -ID following, appreciate assistance. Given on dose of Vanco. Continue on IV Rocephin. -repeat blood cultures with no growth x 1 day, follow until finalized LLL PNA CXR shows left lower lobe consolidation -continue on IV Ceftriaxone per ID -Duonebs -monitor respiratory status E coli and Strept Viridans UTI Urine cx growing E coli and strept Viridans Bladder scan with low PVR -Continue on IV abx -Consult ID as stated above Recurrent episodes of Vtach Hx of paroxysmal afib Echo EF 50% -Cardiology following, appreciate assistance. One 15 beat run of wide complex tachycardia, predominantly atrial fib/flutter. Per Dr. Snow, stop Coreg in light of pauses, decrease dose of Amiodarone to 400mg, poor candidate for anticoagulation, daily ASA only. -continuous cardiac monitoring Acute encephalopathy, suspect secondary to bacteremia, LLL PNA and urinary tract infection CT head no acute intracranial abnormality EEG neg Patient passed swallow evaluation with recommendations for pure and thin liquids -Neurology following, appreciate assistance. -Sister concerned about possible CVA, will obtain MRI head Rhabdomyolysis CK trending down slowly -repeat CPK -Continue with aggressive IV fluid replacement. Acute kidney injury on chronic kidney disease stage III. Creatinine 4.4. Renal US with no e/o hydronephrosis Cr improved to 1.62 -Nephrology following, appreciate assistance -Creatinine improving -follow kidney function Hypertension, not well controlled -start on Norvasc 5mg daily -continue on Hydralazine 25mg TID -Continue to monitor BP closely and adjust treatment as indicated Hypoglycemia -monitor BS -Hypoglycemic protocol Transaminitis, possible shock liver Seroquel on hold Hep profile nonreactive liver US unremarkable -avoid hepatotoxic agents -monitor LFTs Moderate protein calorie malnutrition -[employer] consulted. Request for calorie count. -add Suplena TID -patient needs assistance with all meals DVT prophylaxis Heparin sq Code Status: FULL Discussed Condition With: patient, sister, nursing staff, Dr. Hansen Discharge Planning: Not ready for discharge
[2017-12-21] MEDS: hydrALAZINE 25 MG Tablet PO SCH ×2 (15:44→17:02)
--- NOTE | 2017-12-21 16:32 | MR ---
EXAM DATE: 12/21/2017 3:16 PM EDT AGE/SEX: 82 years / Male INDICATIONS: CVA. CLINICAL DATA: This is the patient's initial encounter. Patient reports that signs and symptoms have been present for 1 day and indicates a pain score of 0/10. MEDICAL/SURGICAL HISTORY: Hypertension. Dementia. Appendectomy. COMPARISON: [facility], CT HEAD W/O CONTRAST, 12/18/2017. . TECHNIQUE: Multiplanar, multisequence examination of the brain was performed without contrast. FINDINGS: Examination is limited by motion. Cerebrum: Prominent diffuse cerebral atrophy. The ventricles are normal for age. No evidence of mid line shift, mass lesion, hemorrhage or acute infarction. No extraaxial fluid collections are seen. The pituitary gland and suprasellar cistern are normal in configuration. White Matter: Moderate periventricular and deep white matter T2 prolongation. Posterior Fossa: The cerebellum and brainstem are intact. The 4th ventricle is midline. The cerebel lopontine angle is unremarkable. The cerebellar tonsils are normal in position. Diffusion Imaging: No focal areas of restricted diffusion are seen. No evidence of acute infarction . Extracranial: The visualized portions of the orbits and paranasal sinuses are unremarkable. CONCLUSION: 1. Motion degraded examination. 2. Senescent changes without definite acute abnormality. Specifically, no evidence for significant a cute infarction. Electronically signed by: Ceasar Earl MD 12/21/2017 4:31 PM EDT
[2017-12-21] MEDS: Vancomycin Inj 1,000 MG in Sodium Chlor 0.9% Inj 250 ML IV.SIG SCH (17:52)
[2017-12-21] MEDS ORDERED: amLODIPine 5 MG Tablet PO SCH (20:00)
[2017-12-21 21:15] LABS: CKMB Percent 0.1 % (0.0-4.0); Creatine Kinase MB 2.9 ng/mL (0.5-3.6)
[2017-12-22] MEDS: Sodium Chloride 23.4% Inj 38.5 MEQ in Water for Inj, Sterile 1,000 ML IV.CONT SCH ×3 (02:47→20:07)
--- NOTE | 2017-12-22 07:03 | P.PNCA ---
Subjective Interval history: Nonverbal. Awake. Resting comfortably. Medications and Allergies Active Medications: Active Medications Al Hydroxide/Mg Hydroxide (Milk Of Master Jo) 30 ml PO Q12H PRN PRN Reason: Mild Constipation Last Admin: 12/20/17 09:33 Dose: 30 ml Albuterol (Duoneb Neb (Nicole)) 1 ampul NEB Q6HR WHILE AWAKE NEB NICOLE Last Admin: 12/21/17 22:40 Dose: 1 ampul Amiodarone HCl (Cordarone) 400 mg PO DAILY [facility] Last Admin: 12/21/17 10:00 Dose: 400 mg Amlodipine Besylate (Norvasc) 5 mg PO DAILY [facility] Last Admin: 12/21/17 20:30 Dose: 5 mg Aspirin (Aspirin Chew) 81 mg PO DAILY [facility] Last Admin: 12/21/17 10:01 Dose: 81 mg Bisacodyl (Dulcolax Supp) 10 mg RECTAL DAILY PRN PRN Reason: SEVERE CONSITIPATION Heparin Sodium (Porcine) (Heparin Inj) 5,000 units SQ BID [facility] Last Admin: 12/21/17 20:31 Dose: 5,000 units Hydralazine HCl (Apresoline) 25 mg PO TID [facility] Last Admin: 12/21/17 17:02 Dose: 25 mg Sodium Chloride (Ns Inj) 1,000 mls @ 0 mls/hr IV.SIG .Q0M [facility] Last Infusion: 12/18/17 20:54 Dose: Infused Sodium Chloride (Ns Inj) 1,000 mls @ 0 mls/hr IV.SIG .Q0M [facility] Last Infusion: 12/18/17 20:54 Dose: Infused Sodium Chloride (Ns Inj) 100 mls @ 0 mls/hr IV.SIG .Q0M [facility] Last Infusion: 12/18/17 20:54 Dose: Infused Sodium Chloride 38.5 meq/ (Sterile Water) 1,009.625 mls @ 125 mls/hr IV.CONT .Q8H5M [facility] Last Admin: 12/22/17 02:47 Dose: 125 mls/hr Sodium Chloride (Ns Inj) 500 mls @ 0 mls/hr IV.SIG BOLUS NICOLE Ceftriaxone Sodium 2,000 mg/ (Sodium Chloride) 100 mls @ 200 mls/hr IV.SIG Q24H [facility] Last Infusion: 12/21/17 17:22 Dose: Infused Vancomycin HCl 1,000 mg/ (Sodium Chloride) 250 mls @ 250 mls/hr IV.SIG Q24H [facility] Last Infusion: 12/21/17 18:55 Dose: Infused Lactulose (Lactulose Liq) 30 ml PO DAILY PRN PRN Reason: SEVERE CONSITIPATION Lorazepam (Ativan) 0.5 mg PO BID [facility] Last Admin: 12/21/17 20:31 Dose: 0.5 mg Miscellaneous Information ([facility] Ordered Lab Info) 1 each OTHER ONCE ONE Stop: 12/23/17 14:46 Pharmacy Profile Note (Vancomycin Consult Pharmacy) 1 each OTHER UNSCH PRN PRN Reason: Pharmacy to dose Quetiapine Fumarate (Seroquel) 50 mg PO BID [facility] Last Admin: 12/19/17 09:15 Dose: Not Given Sennosides (Senokot) 17.2 mg PO Q12H PRN PRN Reason: Moderate Constipation Sodium Chloride (Ns Flush) 2 ml IV.FLUSH BID [facility] Last Admin: 12/21/17 20:31 Dose: 2 ml Sodium Chloride (Ns Flush) 2 ml IV.FLUSH PRN PRN PRN Reason: FLUSH AFTER USING IV ACCESS Allergies Allergy/AdvReac Type Severity Reaction Status Date / Time No Known Allergies Allergy Verified 12/18/17 21:14 Home Medications Medication Instructions Recorded Confirmed Type acetaminophen [Tylenol] 650 mg PO Q4H PRN 12/18/17 12/18/17 History aspirin 81 mg PO DAILY 12/18/17 12/18/17 History bisacodyl [Dulcolax (bisacodyl)] 10 mg [facility] DAILY PRN 12/18/17 12/18/17 History dextromethorphan-quinidine 1 cap PO DAILY 12/18/17 12/18/17 History [Nuedexta] doxazosin [Cardura] 4 mg PO DAILY 12/18/17 12/18/17 History gabapentin [Neurontin] 100 mg PO BID 12/18/17 12/18/17 History lisinopril 20 mg PO BID 12/18/17 12/18/17 History lorazepam [Ativan] 0.5 mg PO BID 12/18/17 12/18/17 History multivitamin 1 tab PO DAILY 12/18/17 12/18/17 History quetiapine [Seroquel] 50 mg PO BID 12/18/17 12/18/17 History Physical Exam Vital signs: Vital Signs 12/21/17 07:50 12/21/17 08:00 12/21/17 09:14 Temperature 97.4 F L Pulse Rate 65 63 Respiratory Rate 20 20 18 Blood Pressure 168/100 H Pulse Oximetry 99 99 12/21/17 12:34 12/21/17 14:50 12/21/17 17:00 Temperature 97.5 F L 97.6 F Pulse Rate 66 67 82 Respiratory Rate 22 18 20 Blood Pressure 159/92 H 143/72 H Pulse Oximetry 98 95 12/21/17 18:00 12/21/17 20:00 12/21/17 22:40 Temperature 97.9 F Pulse Rate 69 72 55 L Respiratory Rate 18 24 Blood Pressure 153/95 H Pulse Oximetry 88 L 97 12/21/17 23:40 12/22/17 00:00 12/22/17 04:00 Temperature 98.4 F 97.7 F Pulse Rate 81 68 101 H Respiratory Rate 18 18 Blood Pressure 146/88 H 167/89 H Pulse Oximetry 97 95 Intake & Output 12/21/17 12/21/17 12/22/17 06:59 18:59 06:59 Intake Total 1519.250 / 0793.683 1842.625 / 2859.625 1240 / 1240 Output Total 1900 / 1900 500 / 500 Balance -380.750 / -504.822 6933.625 / 2859.625 740 / 740 Weight 69.2 kg 69.6 kg Intake: IV 1519.250 / 4804.814 2359.625 / 8748.111 8791 / 1000 Sodium Chloride 23.4% Inj 38.5 1519.250 / 2531.874 6702.625 / 8770.049 9614 / 1000 MEQ In Sterile Water for Inj 1, 000 ML @ 125 mls/hr IV.CONT . Q8H5M NICOLE Rx#:[id number] Vancomycin Inj 1,000 MG In NS 250 / 250 Inj 250 ML @ 250 mls/hr IV.SIG Q24H NICOLE Rx#:[id number] Rocephin Inj 2,000 MG In NS Inj 100 / 100 100 ML @ 200 mls/hr IV.SIG Q24H NICOLE Rx#:[id number] Oral 240 / 240 Other 1500 / 1500 Output: Urine 1900 / 1900 500 / 500 Other: Other Intake Source Saline Solution Date of Last Bowel Movement 12/22/17 # Bowel Movements 0 - Constitutional no acute distress - Routine Neck Exam Absent: JVD - Routine Respiratory Exam Present: CTA bilaterally - Routine Cardiovascular Exam Present: RRR, S1, S2. Absent: murmur, gallop - Routine Abdominal Exam Present: soft, normoactive bowel sounds. Absent: tenderness, organomegaly - Routine Extremities Exam Absent: cyanosis, clubbing, edema Results 12/19/17 06:50 12/21/17 04:08 Cardiac Enzymes 12/18/17 12/20/17 12/20/17 Range/Units 21:33 04:00 15:54 AST 131 H (15-37) U/L CK-MB (CK-2) 4.8 H (0.5-3.6) ng/mL Troponin I 0.10 H 0.06 H (0.02-0.05) ng/mL 12/21/17 12/21/17 Range/Units 04:08 18:41 AST (15-37) U/L CK-MB (CK-2) 3.1 2.9 (0.5-3.6) ng/mL Troponin I (0.02-0.05) ng/mL Comprehensive Metabolic Panel 12/18/17 12/21/17 12/21/17 Range/Units 21:33 00:39 04:08 Sodium 146 H 141 140 (136-145) meq/L Potassium 4.6 3.8 4.1 (3.5-5.1) meq/L Chloride 113 H 109 H 108 H (98-107) meq/L Carbon Dioxide 23.3 24.2 26.6 (21.0-32.0) meq/L BUN 48 H 32 H 32 H (7-18) mg/dL Creatinine 4.40 H 1.61 H 1.62 H (0.60-1.30) mg/dL Calcium 8.2 L 8.4 L 8.3 L (8.5-10.1) mg/dL AST 131 H (15-37) U/L ALT 36 (12-78) U/L Alkaline Phosphatase 82 (45-117) U/L Total Protein 6.9 (6.4-8.2) g/dL Albumin 3.3 L (3.4-5.0) g/dL Intake and Output 12/21/17 12/21/17 12/22/17 14:59 22:59 06:59 Intake Total 1500 / 1500 1359.625 / 1827.365 1231 / 1240 Output Total 500 / 500 Balance 1500 / 1500 1359.625 / 1359.625 740 / 740 Intake: IV 1359.625 / 7655.604 4905 / 1000 Sodium Chloride 23.4% Inj 38.5 1009.625 / 9283.862 2053 / 1000 MEQ In Sterile Water for Inj 1, 000 ML @ 125 mls/hr IV.CONT . Q8H5M NICOLE Rx#:[id number] Vancomycin Inj 1,000 MG In NS 250 / 250 Inj 250 ML @ 250 mls/hr IV.SIG Q24H NICOLE Rx#:[id number] Rocephin Inj 2,000 MG In NS Inj 100 / 100 100 ML @ 200 mls/hr IV.SIG Q24H NICOLE Rx#:[id number] Oral 240 / 240 Other 1500 / 1500 Output: Urine 500 / 500 Other: Other Intake Source Saline Solution Date of Last Bowel Movement 12/22/17 # Bowel Movements 0 Weight 69.6 kg Patient Weight 12/22/17 06:59 Weight 69.6 kg - Imaging and Cardiology Imaging: Impressions Head MRI 12/21/17 00:00 CONCLUSION: 1. Motion degraded examination. 2. Senescent changes without definite acute abnormality. Specifically, no evidence for significant acute infarction. Assessment and Plan - Assessment (1) Wide-complex tachycardia Code(s): I47.2 - Ventricular tachycardia Status: Acute Plan: Stable overnight. Rhythm remains predominantly atrial fib/flutter, mostly controlled HR's. EF low normal 50% by echo with no valvular disease. No further pauses noted on monitoring. REC overall conservative therapy, continue Amiodarone dosing at 400 mg qd, OK for discharge from cardiac standpoint (2) Atrial fibrillation and flutter Code(s): I48.91 - Unspecified atrial fibrillation; I48.92 - Unspecified atrial flutter Status: Acute Plan: Rhythm predominantly atrial fib/flutter with fluctuating HR's, mostly controlled. EF low normal by echo, ~50%. Patient overall poor candidate for oral anticoagulation therapy. No further pauses. REC continue Amiodarone, daily aspirin, OK for discharge from cardiac standpoint (3) Hypertension Code(s): I10 - Essential (primary) hypertension Status: Chronic Plan: Fluctuating BP's, mostly hypertensive. Recommend increase amlodipine dosing. - Plan Code Status: full code (3) Hypertension Qualifiers: Hypertension type: essential hypertension Qualified Code(s): I10 - Essential (primary) hypertension
[2017-12-22 08:11] LABS: Baso % (Auto) 0.5 % (0.0-2.0); Eos # (Auto) 0.3 th/mm3 (0.0-0.4); Eos % (Auto) 2.5 % (0.0-4.0); Hematocrit 36.2 % (39.0-51.0); Lymph # (Auto) 2.2 th/mm3 (1.0-4.8); Mean Corpuscular HGB Conc 33.3 % (32.0-36.0); Mean Corpuscular Hemoglobin 28.7 pg (27.0-34.0); Mean Corpuscular Volume 86.2 fL (80.0-100.0); Mean Platelet Volume 9.6 fL (7.0-11.0); Mono # (Auto) 0.5 th/mm3 (0.0-0.9); Mono % (Auto) 4.6 % (0.0-8.0); Neut # (Auto) 7.8 th/mm3 (1.8-7.7); Neut % (Auto) 72.4 % (16.0-70.0); Platelet Count 180 th/mm3 (150-450); Red Cell Distribution Width 15.4 % (11.6-17.2); White Blood Count 10.8 th/mm3 (4.0-11.0)
[2017-12-22 08:37] LABS: Alanine Aminotransferase 35 U/L (12-78)
--- NOTE | 2017-12-22 08:47 | P.PNIM ---
Subjective Interval history: f/u; a-fib/rhabdo/MARCIA in no acute distress. awake but confused. no fever. Physical Exam Vital signs: Vital Signs 12/21/17 09:14 12/21/17 12:34 12/21/17 14:50 Temperature 97.5 F L Pulse Rate 63 66 67 Respiratory Rate 18 22 18 Blood Pressure 159/92 H Pulse Oximetry 99 98 12/21/17 17:00 12/21/17 18:00 12/21/17 20:00 Temperature 97.6 F 97.9 F Pulse Rate 82 69 72 Respiratory Rate 20 18 Blood Pressure 143/72 H 153/95 H Pulse Oximetry 95 88 L 12/21/17 22:40 12/21/17 23:40 12/22/17 00:00 Temperature 98.4 F Pulse Rate 55 L 81 68 Respiratory Rate 24 18 Blood Pressure 146/88 H Pulse Oximetry 97 97 12/22/17 04:00 12/22/17 08:00 12/22/17 08:35 Temperature 97.7 F 98.6 F Pulse Rate 101 H 121 H 100 H Respiratory Rate 18 22 20 Blood Pressure 167/89 H 182/112 H Pulse Oximetry 95 97 Intake & Output 12/21/17 12/22/17 12/22/17 18:59 06:59 18:59 Intake Total 2859.625 / 2859.625 1240 / 1240 Output Total 500 / 500 Balance 2859.625 / 2859.625 740 / 740 Weight 69.6 kg Intake: IV 1359.625 / 4314.262 4493 / 1000 Sodium Chloride 23.4% Inj 38.5 1009.625 / 2225.841 5922 / 1000 MEQ In Sterile Water for Inj 1, 000 ML @ 125 mls/hr IV.CONT . Q8H5M [facility] Rx#:[id number] Vancomycin Inj 1,000 MG In NS 250 / 250 Inj 250 ML @ 250 mls/hr IV.SIG Q24H [facility] Rx#:[id number] Rocephin Inj 2,000 MG In NS Inj 100 / 100 100 ML @ 200 mls/hr IV.SIG Q24H [facility] Rx#:[id number] Oral 240 / 240 Other 1500 / 1500 Output: Urine 500 / 500 Other: Other Intake Source Saline Solution Date of Last Bowel Movement 12/22/17 # Bowel Movements 0 - Constitutional no acute distress - Routine Respiratory Exam Present: CTA bilaterally - Routine Cardiovascular Exam Present: tachycardia, irregularly irregular - Routine Abdominal Exam Present: soft - Routine Extremities Exam Comments: no pedal edema. - Routine Neurological Exam awake but confused. Results - Labs CBC & Chem 7: 12/22/17 06:37 12/21/17 04:08 Laboratory Results - last 24 hr 12/18/17 12/21/17 12/22/17 21:33 18:41 06:37 WBC RBC Hgb Hct MCV MCH MCHC RDW Plt Count MPV Neut % (Auto) Lymph % (Auto) [place] % (Auto) Eos % (Auto) Baso % (Auto) Neut # (Auto) Lymph # (Auto) [place] # (Auto) Eos # (Auto) Baso # (Auto) WBC Differential Differential Comment Sodium 146 H Potassium 4.6 Chloride 113 H Carbon Dioxide 23.3 Anion Gap 10 BUN 48 H Creatinine 4.40 H Estimated GFR 16 L Random Glucose 86 Calcium 8.2 L Total Bilirubin 0.6 AST 131 H ALT 36 35 Alkaline Phosphatase 82 Total Creatine Kinase 3693 H CK-MB (CK-2) 2.9 CK-MB (CK-2) % 0.1 Troponin I 0.10 H Total Protein 6.9 Albumin 3.3 L 12/22/17 06:37 WBC 10.8 RBC 4.20 L Hgb 12.0 L Hct 36.2 L MCV 86.2 MCH 28.7 MCHC 33.3 RDW 15.4 Plt Count 180 MPV 9.6 Neut % (Auto) 72.4 H Lymph % (Auto) 20.0 [place] % (Auto) 4.6 Eos % (Auto) 2.5 Baso % (Auto) 0.5 Neut # (Auto) 7.8 H Lymph # (Auto) 2.2 [place] # (Auto) 0.5 Eos # (Auto) 0.3 Baso # (Auto) 0.0 WBC Differential . Differential Comment Auto diff final Sodium Potassium Chloride Carbon Dioxide Anion Gap BUN Creatinine Estimated GFR Random Glucose Calcium Total Bilirubin AST ALT Alkaline Phosphatase Total Creatine Kinase CK-MB (CK-2) CK-MB (CK-2) % Troponin I Total Protein Albumin Microbiology 12/20/17 12:52 Blood - Peripheral Aerobic Blood Culture - Preliminary No growth in 1 day 12/20/17 12:52 Blood - Peripheral Anaerobic Blood Culture - Preliminary No growth in 1 day 12/20/17 12:47 Blood - Peripheral Aerobic Blood Culture - Preliminary No growth in 1 day 12/20/17 12:47 Blood - Peripheral Anaerobic Blood Culture - Preliminary No growth in 1 day 12/18/17 19:43 Blood - Peripheral Aerobic Blood Culture - Preliminary Staphylococcus coag negative 12/18/17 19:43 Blood - Peripheral Anaerobic Blood Culture - Preliminary Staphylococcus coag negative 12/18/17 19:35 Blood - Peripheral Aerobic Blood Culture - Preliminary Staphylococcus coag negative 12/18/17 19:35 Blood - Peripheral Anaerobic Blood Culture - Preliminary Staphylococcus coag negative - Imaging Impressions Head MRI 12/21/17 00:00 CONCLUSION: 1. Motion degraded examination. 2. Senescent changes without definite acute abnormality. Specifically, no evidence for significant acute infarction. Assessment and Plan - Plan staph coag neg bacteremia, / bottles -ID following, appreciate assistance. Given on dose of Vanco. Continue on IV Rocephin. -repeat blood cultures with no growth x 1 day, follow until finalized LLL PNA CXR shows left lower lobe consolidation -continue on IV Ceftriaxone per ID -Duonebs -monitor respiratory status E coli and Strept Viridans UTI Urine cx growing E coli and strept Viridans Bladder scan with low PVR -Continue on IV abx -Consulted ID as stated above Recurrent episodes of Vtach Hx of paroxysmal afib Echo EF 50% -Cardiology following, appreciate assistance. One 15 beat run of wide complex tachycardia, predominantly atrial fib/flutter. Per Dr. Adamson, stop Coreg in light of pauses, decreased dose of Amiodarone to 400mg, poor candidate for anticoagulation, daily ASA only. -continuous cardiac monitoring -cleared by cardiology for discharge. Acute encephalopathy, suspect secondary to bacteremia, LLL PNA and urinary tract infection CT head no acute intracranial abnormality EEG neg Patient passed swallow evaluation with recommendations for pure and thin liquids -Neurology following, appreciate assistance. -MRI brain with no acute infarction Rhabdomyolysis CK trending down slowly -trend CPK -Continue with aggressive IV fluid replacement. Acute kidney injury on chronic kidney disease stage III. Creatinine 4.4. Renal US with no e/o hydronephrosis Cr improved to 1.62 -Nephrology following, appreciate assistance -Creatinine improving -follow kidney function Hypertension, not well controlled -increased Norvasc to 10mg daily -continue on Hydralazine 25mg TID -Continue to monitor BP closely and adjust treatment as indicated Hypoglycemia -monitor BS -Hypoglycemic protocol Transaminitis, possible shock liver Seroquel on hold Hep profile nonreactive liver US unremarkable -avoid hepatotoxic agents -monitor LFTs Moderate protein calorie malnutrition -Art Appraiser consulted. Request for calorie count. -add Suplena TID -patient needs assistance with all meals -calorie count in progress. DVT prophylaxis Heparin sq Code Status: FULL Discharge Planning: dc planning to SNF; not ready for discharge.
[2017-12-22 09:07] LABS: Alkaline Phosphatase 83 U/L (45-117); Anion Gap 9 meq/L (5-15); Blood Urea Nitrogen 26 mg/dL (7-18); Calcium 8.2 mg/dL (8.5-10.1); Carbon Dioxide 25.3 meq/L (21.0-32.0); Chloride 106 meq/L (98-107); Glomerular Filtration Rate 54 mL/min (>89); Glucose,Random 98 mg/dL (74-106); Sodium 140 meq/L (136-145); Total Protein 6.9 g/dL (6.4-8.2)
[2017-12-22] MEDS: Heparin - SQ 10,000 UNITS/ML Vial SQ SCH ×2 (09:14→21:54)
[2017-12-22] MEDS: hydrALAZINE 25 MG Tablet PO SCH ×3 (09:14→17:59)
[2017-12-22] MEDS: Amiodarone 200 MG Tablet PO SCH (09:14)
[2017-12-22] MEDS: LORazepam 0.5 MG Tablet PO SCH ×2 (09:15→21:54)
[2017-12-22] MEDS: amLODIPine 10 MG Tablet PO SCH (09:15)
[2017-12-22] MEDS: Sodium Chloride 0.9% 2 ML Flush BID IV.FLUSH SCH ×2 (09:15→21:55)
[2017-12-22 09:42] LABS: Aspartate Aminotransferase 109 U/L (15-37); Creatine Kinase 3099 U/L (39-308); Potassium 3.7 meq/L (3.5-5.1)
[2017-12-22 10:12] LABS: CKMB Percent 0.1 % (0.0-4.0); Creatine Kinase MB 2.4 ng/mL (0.5-3.6)
--- NOTE | 2017-12-22 13:41 | P.PNID ---
Subjective Remarks: Patient is an 82-year-old male, he is nonverbal, lives in a residential, with history of schizophrenia, and dementia, and recurrent UTI, brought into the hospital for decreased level of consciousness. I am unclear as to work his normal baseline mental status is. 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 Since admission he had some low-grade temps. Chest x-ray showing some left lower lobe consolidation. Urinalysis has pyuria. Patient currently has a condom cath. Urine culture is reported as growing E. coli and strep viridans. His blood culture is growing gram-positive cocci in pairs and clusters. Infectious disease consultation has been requested to assist with evaluation and treatment of his infections. Notes reviewed Occ low grade temps Awake but non verbal, not following commands 2 BC on admi with Coag Neg Staph - no ID yet Repeat BC negative WBC down to normal UC with E coli and Viridans Strep Antibiotics: Rocephin Vancomycyin Lines: PIV Past Medical History: Anxiety Constipation Dementia Hypertension Pneumonia Schizophrenia UTI (urinary tract infection) H/O enucleation of right eyeball History of appendectomy Allergies/Adverse Reactions: Allergies No Known Allergies Allergy (Verified 12/18/17 21:14) Objective Vital Signs 12/21/17 14:50 12/21/17 17:00 12/21/17 18:00 Temperature 97.6 F Pulse Rate 67 82 69 Respiratory Rate 18 20 Blood Pressure 143/72 H Pulse Oximetry 95 12/21/17 20:00 12/21/17 22:40 12/21/17 23:40 Temperature 97.9 F 98.4 F Pulse Rate 72 55 L 81 Respiratory Rate 18 24 18 Blood Pressure 153/95 H 146/88 H Pulse Oximetry 88 L 97 97 12/22/17 00:00 12/22/17 04:00 12/22/17 08:00 Temperature 97.7 F 98.6 F Pulse Rate 68 101 H 103 H Respiratory Rate 18 22 Blood Pressure 167/89 H 182/112 H Pulse Oximetry 95 97 12/22/17 08:35 12/22/17 08:46 12/22/17 12:00 Temperature 99.0 F Pulse Rate 100 H 65 Respiratory Rate 20 22 Blood Pressure 144/79 H Pulse Oximetry 95 97 Intake & Output 12/21/17 12/22/1718 18:59 06:59 18:59 Intake Total 2859.625 / 2859.625 1240 / 1240 1009.625 / 1009.625 Output Total 500 / 500 Balance 2859.625 / 2859.625 740 / 740 1009.625 / 1009.625 Weight 69.6 kg Intake: IV 1359.625 / 7799.353 0790 / 1000 1009.625 / 1009.625 Sodium Chloride 23.4% Inj 38.5 1009.625 / 8289.269 8758 / 1000 1009.625 / 1009.625 MEQ In Sterile Water for Inj 1, 000 ML @ 125 mls/hr IV.CONT . Q8H5M [facility] Rx#:[id number] Vancomycin Inj 1,000 MG In NS 250 / 250 Inj 250 ML @ 250 mls/hr IV.SIG Q24H [facility] Rx#:[id number] Rocephin Inj 2,000 MG In NS Inj 100 / 100 100 ML @ 200 mls/hr IV.SIG Q24H [facility] Rx#:[id number] Oral 240 / 240 Other 1500 / 1500 Output: Urine 500 / 500 Other: Other Intake Source Saline Solution Date of Last Bowel Movement 12/22/17 # Bowel Movements 0 12/18/17 19:43 Blood - Peripheral Aerobic Blood Culture - Preliminary Staphylococcus coag negative 12/18/17 19:43 Blood - Peripheral Anaerobic Blood Culture - Preliminary Staphylococcus coag negative 12/18/17 19:35 Blood - Peripheral Aerobic Blood Culture - Preliminary Staphylococcus coag negative 12/18/17 19:35 Blood - Peripheral Anaerobic Blood Culture - Preliminary Staphylococcus coag negative 12/20/17 12:52 Blood - Peripheral Aerobic Blood Culture - Preliminary No growth in 2 days 12/20/17 12:52 Blood - Peripheral Anaerobic Blood Culture - Preliminary No growth in 2 days 12/20/17 12:47 Blood - Peripheral Aerobic Blood Culture - Preliminary No growth in 2 days 12/20/17 12:47 Blood - Peripheral Anaerobic Blood Culture - Preliminary No growth in 2 days 12/18/17 20:18 Catheterized Urine Urine Culture - Final Escherichia coli Viridans streptococcus grp Lab - Hematology Results 12/22/17 06:37 WBC 10.8 RBC 4.20 L Hgb 12.0 L Hct 36.2 L MCV 86.2 MCH 28.7 MCHC 33.3 RDW 15.4 Plt Count 180 MPV 9.6 Neut % (Auto) 72.4 H Lymph % (Auto) 20.0 [place] % (Auto) 4.6 Eos % (Auto) 2.5 Baso % (Auto) 0.5 Neut # (Auto) 7.8 H Lymph # (Auto) 2.2 [place] # (Auto) 0.5 Eos # (Auto) 0.3 Baso # (Auto) 0.0 WBC Differential . Differential Comment Auto diff final Lab - Chemistry Results 12/18/17 12/20/17 12/20/17 21:33 15:54 17:52 Sodium 146 H Potassium 4.6 Chloride 113 H Carbon Dioxide 23.3 Anion Gap 10 BUN 48 H Creatinine 4.40 H Estimated GFR 16 L POC Glucose 80 Random Glucose 86 Calcium 8.2 L Phosphorus Magnesium Total Bilirubin 0.6 AST 131 H ALT 36 Alkaline Phosphatase 82 Total Creatine Kinase 4821 H CK-MB (CK-2) 4.8 H CK-MB (CK-2) % 0.1 Troponin I 0.10 H Total Protein 6.9 Albumin 3.3 L 12/20/17 12/21/17 12/21/17 22:51 00:39 04:08 Sodium 141 140 Potassium 3.8 4.1 Chloride 109 H 108 H Carbon Dioxide 24.2 26.6 Anion Gap 8 5 BUN 32 H 32 H Creatinine 1.61 H 1.62 H Estimated GFR 50 L 50 L POC Glucose 104 Random Glucose 103 95 Calcium 8.4 L 8.3 L Phosphorus 2.1 L Magnesium 2.0 Total Bilirubin AST ALT Alkaline Phosphatase Total Creatine Kinase 4335 H CK-MB (CK-2) 3.1 CK-MB (CK-2) % 0.1 Troponin I Total Protein Albumin 12/21/17 12/22/17 18:41 06:37 Sodium 140 Potassium 3.7 Chloride 106 Carbon Dioxide 25.3 Anion Gap 9 BUN 26 H Creatinine 1.51 H Estimated GFR 54 L POC Glucose Random Glucose 98 Calcium 8.2 L Phosphorus Magnesium Total Bilirubin 1.2 H AST 109 H ALT 35 Alkaline Phosphatase 83 Total Creatine Kinase 3693 H 3099 H CK-MB (CK-2) 2.9 2.4 CK-MB (CK-2) % 0.1 0.1 Troponin I Total Protein 6.9 Albumin 3.0 L Imaging: ITS Impressions Head CT 12/18/17 19:25 CONCLUSION: 1. No acute findings in the brain. 2. Stable ischemic changes in the supratentorial brain. . Chest X-Ray 12/18/17 19:26 CONCLUSION: Left lower lobe consolidation. Abdomen/Bladder Ultrasound 12/19/17 00:00 CONCLUSION: 1. No evidence of hydronephrosis. 2. Small benign-appearing right renal cyst measuring 1.2 cm. 3. No significant changes compared to the prior study. Liver Ultrasound 12/19/17 00:00 CONCLUSION: 1. Right upper quadrant abdominal ultrasound is limited due to overlying bowel gas. 2. No acute findings identified. 3. Previously identified right renal cyst is not seen on the current study. Head MRI 12/21/17 00:00 CONCLUSION: 1. Motion degraded examination. 2. Senescent changes without definite acute abnormality. Specifically, no evidence for significant acute infarction. Physical Exam: GENERAL: awake and focusing, not following any commands, has contractures of his BUE and BLE, not in respiratory distress. SKIN: Cool and dry. No generalized rash, no ecchymoses and no evidence of embolic lesions. HEAD: Atraumatic. Normocephalic. No temporal wasting, or tenderness. EYES: [place] conjunctiva. No petechia or hemorrhage. Sunken in R orbit, enucleation?. No scleral icterus. No injection or drainage. EARS, NOSE AND THROAT: Nose without bleeding or purulent nasal discharge. Mucous membranes pink and moist. NECK: Trachea midline. Stiff neck, whole body rigid. HEART: Regular rate and rhythm, no murmur heard. RESPIRATORY: Clear to auscultation. Decreased breath sounds at bases. ABDOMEN: Flat firm, bowel sounds present and normoactive, not tender. EXTREMITIES: No clubbing, cyanosis. BUE and BLE spastic and contracted. NEUROLOGICAL: Awake , not following. BUE and BLE contracted. PSYCHIATRIC: Unable to assess : Has condom cath in place. LINE: No evidence of infection Assessment and Plan - Plan Impression UTI, no garcia - C/S E coli and Strep viridans Bacteremia, ?significance - BC with Coag Neg Staph Renal insufficiency due to sepsis, no obstruction seen on US Hx schizophrenia and dementia Chronically bedridden Recommendation Continue IV Rocephin Follow Repeat BC Continue IV Vanco Follow C/S Monitor progress If diff Coag Neg Staph or no new (+) BC, will D/C vanco Follow temps - if temp normal >24 hours, ok to change Rocephin to Augmentin and give 14 days total Abx - end date Dec 31
--- NOTE | 2017-12-22 14:54 | P.DIET ---
Nutritional Evaluation Type of nutrition evaluation: follow-up Nutrition consult regarding: Diet Evaluation Nutrition screening: [facility] [place]Cal[place] counts ordered 12/20) Screening comments: Calorie counts completed: 5 meals recorded Objective - Diagnosis UTI, AMS, Renal Dailure, Rhabdomyolysis - Objective % IBW: 90 (IBW = 166#) Body Weight Used for Calculations: Actual (67.7 kg) Energy Needs - Lower Range (kCal/kg): 28 Energy Needs - Upper Range (kCal/kg): 33 Lower Limit kCal/kg (kCals): 1,896 Upper Limit kCal/kg (kCals): 2,234 Lower Limit Protein Factor (Grams per Kg): 1.0 Upper Limit Protein Factor (Grams per Kg): 1.5 Lower Protein Needs (Protein): 68 Upper Protein Needs (Protein): 102 Dietitian Reviewed in Medical Record: Current diet, Curent medications, Intake & Output, Labs, Medical history Diet Order: Cardiac Pureed Speech Therapy Recommendations: Yes (Pureed Thin Liquids) Objective Comments: PMH: Anxiety, Constipation, UTI, Dementia, HTN, Pneumonia, Schizophrenia Labs Include: BUN/creat /.51, Est GFR 54 Assessment Assessment: Calorie counts indicate that the pt's average po intake is ~1200 kcals and ~57 gms protein. This meets 63% of the low end of his kcaloric needs and 84% of his protein needs. It is noted that the pt does not like the Suplena supplement but had been drinking 100% of the Ensure Enlive before it was changed to Suplena. With improved renal labs, will change the supplement back to Ensure Enlive which provides 350 kcals and 20 gms protein per 8 oz serving. Labs wts, and clinical course reviewed. CBW = 69.9 kg Recommendations: 1. Will change Suplena to Ensure Enlive tid 2. Please provide full assistance at meals 3. Rd will continue to follow Dietitian to Monitor: Lab values, Supplement acceptance, Intake & Output, Diet tolerance, Weight change, PO Intake, Swallow recommendations, Medical course
[2017-12-22] MEDS: Vancomycin Inj 1,000 MG in Sodium Chlor 0.9% Inj 250 ML IV.SIG SCH (16:14)
[2017-12-23] MEDS ORDERED: Acetaminophen 650 MG Supp RECTAL PRN (01:24)
[2017-12-23] MEDS ORDERED: Metoprolol Tartrate 25 MG Tablet PO ONE (01:26)
[2017-12-23] MEDS: Sodium Chloride 23.4% Inj 38.5 MEQ in Water for Inj, Sterile 1,000 ML IV.CONT SCH ×3 (02:06→17:43)
--- NOTE | 2017-12-23 08:58 | P.PN ---
Subjective Interval history: in no acute distress. looks fairly comfortable. no fever. Physical Exam Vital signs: Vital Signs 12/22/17 12:00 12/22/17 13:35 12/22/17 16:00 Temperature 99.0 F 98.1 F Pulse Rate 107 H 67 133 H Respiratory Rate 22 20 22 Blood Pressure 144/79 H 156/97 H Pulse Oximetry 97 90 L 12/22/17 20:00 12/22/17 20:25 12/23/17 00:00 Temperature 98.2 F 99.3 F Pulse Rate 135 H 88 114 H Respiratory Rate 21 24 22 Blood Pressure 140/92 H 154/96 H Pulse Oximetry 96 95 93 L 12/23/17 04:00 12/23/17 07:51 Temperature 98.7 F Pulse Rate 65 65 Respiratory Rate 21 20 Blood Pressure 148/88 H Pulse Oximetry 97 94 L Intake & Output 12/22/17 12/23/17 12/23/17 18:59 06:59 18:59 Intake Total 2079.625 / 2079.625 1209.625 / 1209.625 Output Total 450 / 450 500 / 500 Balance 1629.625 / 1629.625 709.625 / 709.625 Weight 69.4 kg Intake: IV 1359.625 / 7762.917 0089.625 / 1009.625 Sodium Chloride 23.4% Inj 38.5 1009.625 / 5373.203 4963.625 / 1009.625 MEQ In Sterile Water for Inj 1, 000 ML @ 125 mls/hr IV.CONT . Q8H5M [facility] Rx#:[id number] Vancomycin Inj 1,000 MG In NS 250 / 250 Inj 250 ML @ 250 mls/hr IV.SIG Q24H [facility] Rx#:[id number] Rocephin Inj 2,000 MG In NS Inj 100 / 100 100 ML @ 200 mls/hr IV.SIG Q24H [facility] Rx#:[id number] Oral 720 / 720 200 / 200 Output: Urine 450 / 450 500 / 500 Other: # Incontinent Voids 3 Date of Last Bowel Movement 12/22/17 12/22/17 # Incontinent Bowel Movements 1 - Constitutional no acute distress - Routine Respiratory Exam Present: CTA bilaterally - Routine Cardiovascular Exam Present: RRR - Routine Abdominal Exam Present: soft - Routine Extremities Exam Comments: no pedal edema. - Routine Neurological Exam Present: alert Results - Labs CBC & Chem 7: 12/22/17 06:37 12/22/17 06:37 Laboratory Results - last 24 hr 12/22/17 06:37 Sodium 140 Potassium 3.7 Chloride 106 Carbon Dioxide 25.3 Anion Gap 9 BUN 26 H Creatinine 1.51 H Estimated GFR 54 L Random Glucose 98 Calcium 8.2 L Total Bilirubin 1.2 H AST 109 H Alkaline Phosphatase 83 Total Creatine Kinase 3099 H CK-MB (CK-2) 2.4 CK-MB (CK-2) % 0.1 Total Protein 6.9 Albumin 3.0 L Microbiology 12/18/17 19:43 Blood - Peripheral Aerobic Blood Culture - Preliminary Staphylococcus coag negative 12/18/17 19:43 Blood - Peripheral Anaerobic Blood Culture - Preliminary Staphylococcus coag negative 12/18/17 19:35 Blood - Peripheral Aerobic Blood Culture - Preliminary Staphylococcus coag negative 12/18/17 19:35 Blood - Peripheral Anaerobic Blood Culture - Preliminary Staphylococcus coag negative 12/20/17 12:52 Blood - Peripheral Aerobic Blood Culture - Preliminary No growth in 2 days 12/20/17 12:52 Blood - Peripheral Anaerobic Blood Culture - Preliminary No growth in 2 days 12/20/17 12:47 Blood - Peripheral Aerobic Blood Culture - Preliminary No growth in 2 days 12/20/17 12:47 Blood - Peripheral Anaerobic Blood Culture - Preliminary No growth in 2 days Assessment and Plan - Plan staph coag neg bacteremia, 4/4 bottles -ID following, appreciate assistance. on Vanco. Continue on IV Rocephin. -repeat blood cultures with no growth so far. LLL PNA CXR shows left lower lobe consolidation -continue on IV Ceftriaxone per ID -Duonebs -monitor respiratory status E coli and Strept Viridans UTI Urine cx growing E coli and strept Viridans Bladder scan with low PVR -Continue on IV abx -Consulted ID as stated above Recurrent episodes of Vtach Hx of paroxysmal afib Echo EF 50% -Cardiology following, appreciate assistance. One 15 beat run of wide complex tachycardia, predominantly atrial fib/flutter. Per Dr. Adamson, stop Coreg in light of pauses, decreased dose of Amiodarone to 400mg, poor candidate for anticoagulation, daily ASA only. -continuous cardiac monitoring -cleared by cardiology for discharge. Acute encephalopathy, suspect secondary to bacteremia, LLL PNA and urinary tract infection CT head no acute intracranial abnormality EEG neg Patient passed swallow evaluation with recommendations for pure and thin liquids -Neurology following, appreciate assistance. -MRI brain with no acute infarction Rhabdomyolysis CK trending down slowly -trend CPK -Continue with aggressive IV fluid replacement. Acute kidney injury on chronic kidney disease stage III. Creatinine 4.4. Renal US with no e/o hydronephrosis Cr improved to 1.62 -Nephrology following, appreciate assistance -Creatinine improving -follow kidney function Hypertension -increased Norvasc to 10mg daily -continue on Hydralazine 25mg TID -Continue to monitor BP closely and adjust treatment as indicated Hypoglycemia -monitor BS -Hypoglycemic protocol Transaminitis, possible shock liver Seroquel on hold Hep profile nonreactive liver US unremarkable -avoid hepatotoxic agents -monitor LFTs Moderate protein calorie malnutrition -Senior Information Security Architect consulted. -patient needs assistance with all meals -calorie count completed; added ensure per jowl trimmer recommendation. DVT prophylaxis Heparin sq Code Status: FULL Discharge Planning: dc planning to SNF; tomorrow if stable.
[2017-12-23] MEDS: Amiodarone 200 MG Tablet PO SCH (09:32)
[2017-12-23] MEDS: amLODIPine 10 MG Tablet PO SCH (09:32)
[2017-12-23] MEDS: Heparin - SQ 10,000 UNITS/ML Vial SQ SCH ×2 (09:32→21:54)
[2017-12-23] MEDS: hydrALAZINE 25 MG Tablet PO SCH ×3 (09:32→17:34)
[2017-12-23] MEDS: LORazepam 0.5 MG Tablet PO SCH ×2 (09:32→21:54)
[2017-12-23] MEDS: Sodium Chloride 0.9% 2 ML Flush BID IV.FLUSH SCH ×2 (09:33→21:54)
[2017-12-23 10:41] LABS: Calcium 8.9 mg/dL (8.5-10.1); Carbon Dioxide 26.6 meq/L (21.0-32.0); Potassium 3.8 meq/L (3.5-5.1)
[2017-12-23 11:14] LABS: CKMB Percent 0.2 % (0.0-4.0); Creatine Kinase MB 3.4 ng/mL (0.5-3.6)
[2017-12-23] MEDS ORDERED: Pharmacy Ordered Lab Info OTHER ONE (14:45)
[2017-12-23 16:10] LABS: Calcium 8.8 mg/dL (8.5-10.1); Carbon Dioxide 26.7 meq/L (21.0-32.0); Potassium 3.6 meq/L (3.5-5.1)
[2017-12-23 16:24] LABS: Vancomycin,Trough 12.4 mcg/mL (5.0-10.0)
[2017-12-23 16:37] LABS: CKMB Percent 0.3 % (0.0-4.0); Creatine Kinase MB 3.5 ng/mL (0.5-3.6)
[2017-12-23] MEDS: Vancomycin Inj 1,000 MG in Sodium Chlor 0.9% Inj 250 ML IV.SIG SCH (17:34)
[2017-12-24] MEDS: Sodium Chloride 23.4% Inj 38.5 MEQ in Water for Inj, Sterile 1,000 ML IV.CONT SCH ×2 (03:09→11:43)
[2017-12-24] MEDS: amLODIPine 10 MG Tablet PO SCH (08:38)
[2017-12-24] MEDS: hydrALAZINE 25 MG Tablet PO SCH ×3 (08:39→18:32)
[2017-12-24] MEDS: Heparin - SQ 10,000 UNITS/ML Vial SQ SCH ×2 (08:39→21:19)
[2017-12-24] MEDS: Amiodarone 200 MG Tablet PO SCH (08:39)
[2017-12-24] MEDS: Sodium Chloride 0.9% 2 ML Flush BID IV.FLUSH SCH ×2 (08:39→21:00)
[2017-12-24] MEDS: LORazepam 0.5 MG Tablet PO SCH ×2 (08:39→21:19)
--- NOTE | 2017-12-24 09:17 | P.PN ---
Subjective Interval history: f/u; a-fib with RVR/ E-coli in no acute distress. However HR back to 100-120's range. remains afebrile. Physical Exam Vital signs: Vital Signs 12/23/17 12:00 12/23/17 13:00 12/23/17 16:00 Temperature 97.7 F Pulse Rate 61 100 H 130 H Respiratory Rate 20 16 Blood Pressure 140/84 Pulse Oximetry 96 12/23/17 19:59 12/23/17 20:00 12/24/17 00:00 Temperature 97.3 F L 97.6 F Pulse Rate 110 H 81 106 H Respiratory Rate 24 21 21 Blood Pressure 137/82 135/88 Pulse Oximetry 93 L 90 L 92 L 12/24/17 04:00 12/24/17 07:00 12/24/17 08:00 Temperature 97.6 F 98.3 F Pulse Rate 98 H 118 H 127 H Respiratory Rate 22 16 20 Blood Pressure 141/76 H 151/75 H Pulse Oximetry 93 L 97 100 Intake & Output 12/23/17 12/24/17 12/24/17 18:59 06:59 18:59 Intake Total 3329.625 / 3329.625 100 / 100 Balance 3329.625 / 3329.625 100 / 100 Intake: IV 3109.625 / 3109.625 100 / 100 Sodium Chloride 23.4% Inj 38.5 3009.625 / 3009.625 100 / 100 MEQ In Sterile Water for Inj 1, 000 ML @ 125 mls/hr IV.CONT . Q8H5M [facility] Rx#:[id number] Rocephin Inj 2,000 MG In NS Inj 100 / 100 100 ML @ 200 mls/hr IV.SIG Q24H [facility] Rx#:[id number] Oral 220 / 220 Other: # Voids 4 # Incontinent Voids 4 Date of Last Bowel Movement 12/22/17 12/23/17 # Bowel Movements 2 - Constitutional no acute distress - Routine Respiratory Exam Present: CTA bilaterally - Routine Cardiovascular Exam Present: tachycardia, irregularly irregular - Routine Abdominal Exam Present: soft - Routine Extremities Exam Comments: no pedal edema. - Routine Neurological Exam Present: alert Results - Labs CBC & Chem 7: 12/22/17 06:37 12/24/17 11:05 Laboratory Results - last 24 hr 09/12/23/17 12/24/17 09:58 14:55 03:32 Sodium 142 142 Potassium 3.8 3.6 Chloride 108 H 105 Carbon Dioxide 26.6 26.7 Anion Gap 7 10 BUN 19 H 18 15 Creatinine 1.34 H 1.29 1.22 Estimated GFR 62 L 65 L 69 L Random Glucose 90 89 Calcium 8.9 8.8 Total Creatine Kinase 1560 H 1382 H CK-MB (CK-2) 3.4 3.5 CK-MB (CK-2) % 0.2 0.3 Vancomycin Trough 12.4 H Microbiology 12/20/17 12:52 Blood - Peripheral Aerobic Blood Culture - Preliminary No growth in 3 days 12/20/17 12:52 Blood - Peripheral Anaerobic Blood Culture - Preliminary No growth in 3 days 12/20/17 12:47 Blood - Peripheral Aerobic Blood Culture - Preliminary No growth in 3 days 12/20/17 12:47 Blood - Peripheral Anaerobic Blood Culture - Preliminary No growth in 3 days 12/18/17 19:43 Blood - Peripheral Aerobic Blood Culture - Final Staphylococcus epidermidis 12/18/17 19:43 Blood - Peripheral Anaerobic Blood Culture - Final Staphylococcus coag negative 12/18/17 19:35 Blood - Peripheral Aerobic Blood Culture - Final Staphylococcus epidermidis 12/18/17 19:35 Blood - Peripheral Anaerobic Blood Culture - Final Staphylococcus coag negative Assessment and Plan - Plan staph coag neg bacteremia, 06/28 bottles -ID following, appreciate assistance. -repeat blood cultures with no growth so far. -remains afebrile; will dc IV antibiotic and start on Augmentin- stop date; - per ID. LLL PNA CXR shows left lower lobe consolidation -continue antibiotic as noted above. -Duonebs -monitor respiratory status E coli and Strept Viridans UTI Urine cx growing E coli and strept Viridans Bladder scan with low PVR -Continue antibiotic per ID. -Consulted ID as stated above Recurrent episodes of Vtach Hx of paroxysmal afib Echo EF 50% -Cardiology following, appreciate assistance. had15 beat run of wide complex tachycardia, predominantly atrial fib/flutter. Per Dr. Adamson, stopped Coreg in light of pauses, decreased dose of Amiodarone to 400mg, poor candidate for anticoagulation, daily ASA only. -back to a-fib with RVR on 12/24; HR ; 100-120's range. -continue Amiodarone and reconsult cardiology. -continuous cardiac monitoring Acute encephalopathy, suspect secondary to bacteremia, LLL PNA and urinary tract infection CT head no acute intracranial abnormality EEG neg Patient passed swallow evaluation with recommendations for pure and thin liquids -evaluated by neurology, appreciate assistance. -MRI brain with no acute infarction Rhabdomyolysis CK trending down slowly -trend CPK -Continue with aggressive IV fluid replacement. Acute kidney injury on chronic kidney disease stage III. Creatinine 4.4. Renal US with no e/o hydronephrosis Cr improved to 1.62 -Nephrology following, appreciate assistance -Creatinine improving -follow kidney function Hypertension -increased Norvasc to 10mg daily -continue on Hydralazine 25mg TID -Continue to monitor BP closely and adjust treatment as indicated Hypoglycemia -monitor BS -Hypoglycemic protocol Transaminitis, possible shock liver Seroquel on hold Hep profile nonreactive liver US unremarkable -avoid hepatotoxic agents -monitor LFTs Moderate protein calorie malnutrition -Back End Engineer consulted. -patient needs assistance with all meals -calorie count completed; added ensure per quality control assistant recommendation. DVT prophylaxis Heparin sq Code Status: FULL Discharge Planning: dc planning to SNF; possibly tomorrow if stable/ awaiting cardiology re- evaluation.
--- NOTE | 2017-12-24 09:42 | P.PN ---
Subjective Interval history: Pt went back into mildly rapid afib, he is apparently non-verbal. Physical Exam Vital signs: Vital Signs 12/23/17 12:00 12/23/17 13:00 12/23/17 16:00 Temperature 97.7 F Pulse Rate 61 100 H 130 H Respiratory Rate 20 16 Blood Pressure 140/84 Pulse Oximetry 96 12/23/17 19:59 12/23/17 20:00 12/24/17 00:00 Temperature 97.3 F L 97.6 F Pulse Rate 110 H 81 106 H Respiratory Rate 24 21 21 Blood Pressure 137/82 135/88 Pulse Oximetry 93 L 90 L 92 L 12/24/17 04:00 12/24/17 07:00 12/24/17 08:00 Temperature 97.6 F 98.3 F Pulse Rate 98 H 118 H 83 Respiratory Rate 22 16 20 Blood Pressure 141/76 H 151/75 H Pulse Oximetry 93 L 97 100 Intake & Output 12/23/17 12/24/17 12/24/17 18:59 06:59 18:59 Intake Total 3329.625 / 3329.625 100 / 100 Balance 3329.625 / 3329.625 100 / 100 Intake: IV 3109.625 / 3109.625 100 / 100 Sodium Chloride 23.4% Inj 38.5 3009.625 / 3009.625 100 / 100 MEQ In Sterile Water for Inj 1, 000 ML @ 125 mls/hr IV.CONT . Q8H5M [facility] Rx#:[id number] Rocephin Inj 2,000 MG In NS Inj 100 / 100 100 ML @ 200 mls/hr IV.SIG Q24H [facility] Rx#:[id number] Oral 220 / 220 Other: # Voids 4 # Incontinent Voids 4 Date of Last Bowel Movement 12/22/17 12/23/17 # Bowel Movements 2 - Constitutional no acute distress Comments: Not verbal - Routine HEENT Exam Eye: Present: EOMI ENT: Present: mucous membranes moist - Routine Neck Exam Present: supple. Absent: JVD - Routine Respiratory Exam Present: CTA bilaterally - Routine Cardiovascular Exam Present: tachycardia, irregular rhythm - Routine Abdominal Exam Present: soft - Routine Extremities Exam Absent: edema Results - Labs CBC & Chem 7: 12/22/17 06:37 12/24/17 03:32 Laboratory Results - last 24 hr 0912/23/17 12/24/17 09:58 14:55 03:32 Sodium 142 142 Potassium 3.8 3.6 Chloride 108 H 105 Carbon Dioxide 26.6 26.7 Anion Gap 7 10 BUN 19 H 18 15 Creatinine 1.34 H 1.29 1.22 Estimated GFR 62 L 65 L 69 L Random Glucose 90 89 Calcium 8.9 8.8 Total Creatine Kinase 1560 H 1382 H CK-MB (CK-2) 3.4 3.5 CK-MB (CK-2) % 0.2 0.3 Vancomycin Trough 12.4 H Microbiology 12/20/17 12:52 Blood - Peripheral Aerobic Blood Culture - Preliminary No growth in 3 days 12/20/17 12:52 Blood - Peripheral Anaerobic Blood Culture - Preliminary No growth in 3 days 12/20/17 12:47 Blood - Peripheral Aerobic Blood Culture - Preliminary No growth in 3 days 12/20/17 12:47 Blood - Peripheral Anaerobic Blood Culture - Preliminary No growth in 3 days 12/18/17 19:43 Blood - Peripheral Aerobic Blood Culture - Final Staphylococcus epidermidis 12/18/17 19:43 Blood - Peripheral Anaerobic Blood Culture - Final Staphylococcus coag negative 12/18/17 19:35 Blood - Peripheral Aerobic Blood Culture - Final Staphylococcus epidermidis 12/18/17 19:35 Blood - Peripheral Anaerobic Blood Culture - Final Staphylococcus coag negative Assessment and Plan - Assessment (1) Wide-complex tachycardia Code(s): I47.2 - Ventricular tachycardia Status: Acute (2) Atrial fibrillation and flutter Code(s): I48.91 - Unspecified atrial fibrillation; I48.92 - Unspecified atrial flutter Status: Acute Plan: Clearly not an anticoagulation candidate due to fall risk, cognitive challenges , changed amlodipine to cardizem for a bit better rate cotnrol. (3) Hypertension Code(s): I10 - Essential (primary) hypertension Status: Chronic - Plan will sign off, please call with questions. (3) Hypertension Qualifiers: Hypertension type: essential hypertension Qualified Code(s): I10 - Essential (primary) hypertension
[2017-12-24] MEDS: dilTIAZem CD 120 MG Capsule PO SCH (11:44)
[2017-12-24] MEDS: Amoxicillin/Clavulanate 875/125 MG Tablet PO SCH ×2 (11:44→21:19)
[2017-12-24 13:01] LABS: Calcium 8.8 mg/dL (8.5-10.1); Carbon Dioxide 23.7 meq/L (21.0-32.0)
[2017-12-24 13:22] LABS: CKMB Percent 0.4 % (0.0-4.0); Creatine Kinase MB 4.1 ng/mL (0.5-3.6)
[2017-12-24] MEDS ORDERED: Vancomycin Inj 1,250 MG in Sodium Chlor 0.9% Inj 250 ML IV.SIG SCH (15:00)
[2017-12-25 00:49] VITALS: RESP 20
[2017-12-25] MEDS: Amiodarone 200 MG Tablet PO SCH (09:12)
[2017-12-25] MEDS: LORazepam 0.5 MG Tablet PO SCH (09:12)
[2017-12-25] MEDS: Heparin - SQ 10,000 UNITS/ML Vial SQ SCH (09:12)
[2017-12-25] MEDS: hydrALAZINE 25 MG Tablet PO SCH ×2 (09:13→16:19)
[2017-12-25] MEDS: dilTIAZem CD 120 MG Capsule PO SCH (09:13)
[2017-12-25] MEDS: Sodium Chloride 0.9% 2 ML Flush BID IV.FLUSH SCH (09:13)
[2017-12-25] MEDS: Amoxicillin/Clavulanate 875/125 MG Tablet PO SCH (09:13)
--- NOTE | 2017-12-25 10:21 | P.PNIM ---
Subjective Interval history: Patient appears comfortable. he is nonverbal. No acute changes per nursing Physical Exam Vital signs: Vital Signs 12/24/17 12:00 12/24/17 16:00 12/24/17 20:00 Temperature 98.1 F 98.2 F 98.1 F Pulse Rate 98 H 96 H 74 Respiratory Rate 20 18 18 Blood Pressure 161/88 H 142/70 H 121/90 Pulse Oximetry 92 L 96 93 L 12/24/17 20:31 12/25/17 00:00 12/25/17 04:00 Temperature 97.7 F 98 F Pulse Rate 84 85 Respiratory Rate 20 20 Blood Pressure 139/82 140/83 Pulse Oximetry 94 L 98 92 L Intake & Output 12/24/17 12/25/17 12/25/17 18:59 06:59 18:59 Intake Total 1619.250 / 1619.250 120 / 120 Balance 1619.250 / 1619.250 120 / 120 Intake: IV 1619.250 / 1619.250 Sodium Chloride 23.4% Inj 38.5 1619.250 / 1619.250 MEQ In Sterile Water for Inj 1, 000 ML @ 125 mls/hr IV.CONT . Q8H5M [facility] Rx#:[id number] Oral 120 / 120 Other: # Voids 2 # Incontinent Voids 1 2 # Urine Diapers 2 Date of Last Bowel Movement 12/24/17 12/24/17 # Bowel Movements 1 # Incontinent Bowel Movements 1 Narrative: GENERAL: Thin cachectic appearing elderly -[place]ish male patient, in no acute distress. Awake. Nonverbal. Does not follow commands. Appears to track with left eye. SKIN: Warm and dry. HEAD: Atraumatic. Normocephalic. EYES: Right eye eviscerated. No scleral icterus. No injection or drainage. ENT: No nasal bleeding or discharge. Mucous membranes pink and moist. NECK: Trachea midline. CARDIOVASCULAR: Regular rate and rhythm. RESPIRATORY: No accessory muscle use. Poor effort. Clear to auscultation anteriorly. Breath sounds equal bilaterally. GASTROINTESTINAL: Abdomen soft, non-tender, nondistended. +BS. MUSCULOSKELETAL: Extremities without clubbing, cyanosis, or edema. NEUROLOGICAL: Awake, nonverbal. Does not follow commands. Contractures bilateral arms. Results - Labs CBC & Chem 7: 12/22/17 06:37 12/25/17 03:40 Laboratory Results - last 24 hr 12/24/17 12/25/17 11:05 03:40 Sodium 140 Potassium 4.0 Chloride 106 Carbon Dioxide 23.7 Anion Gap 10 BUN 13 16 Creatinine 1.25 1.33 H Estimated GFR 67 L 63 L Random Glucose 86 Calcium 8.8 Total Creatine Kinase 958 H CK-MB (CK-2) 4.1 H CK-MB (CK-2) % 0.4 Microbiology 12/20/17 12:52 Blood - Peripheral Aerobic Blood Culture - Preliminary No growth in 4 days 12/20/17 12:52 Blood - Peripheral Anaerobic Blood Culture - Preliminary No growth in 4 days 12/20/17 12:47 Blood - Peripheral Aerobic Blood Culture - Preliminary No growth in 4 days 12/20/17 12:47 Blood - Peripheral Anaerobic Blood Culture - Preliminary No growth in 4 days Assessment and Plan - Plan staph coag neg bacteremia, 06/28 bottles -ID following, appreciate assistance. -repeat blood cultures with no growth so far. -remains afebrile; will dc IV antibiotic and start on Augmentin- stop date; - per ID. LLL PNA CXR shows left lower lobe consolidation -continue antibiotic as noted above. -Duonebs -monitor respiratory status E coli and Strept Viridans UTI Urine cx growing E coli and strept Viridans Bladder scan with low PVR -Continue antibiotic per ID. -Consulted ID as stated above = cont Augmentin as per infectious disease. Recurrent episodes of Vtach Hx of paroxysmal afib Echo EF 50% -Cardiology following, appreciate assistance. had15 beat run of wide complex tachycardia, predominantly atrial fib/flutter. Per Dr. Adamson, stopped Coreg in light of pauses, decreased dose of Amiodarone to 400mg, poor candidate for anticoagulation, daily ASA only. -back to a-fib with RVR on 12/24; HR ; 100-120's range. -continue Amiodarone and reconsult cardiology. -continuous cardiac monitoring = Appreciate cardiology assistance. Continue amiodarone. Switched to diltiazem. Acute encephalopathy, suspect secondary to bacteremia, LLL PNA and urinary tract infection CT head no acute intracranial abnormality EEG neg Patient passed swallow evaluation with recommendations for pure and thin liquids -evaluated by neurology, appreciate assistance. -MRI brain with no acute infarction Rhabdomyolysis CK trending down slowly -trend CPK -Continue with aggressive IV fluid replacement. Acute kidney injury on chronic kidney disease stage III. Creatinine 4.4. Renal US with no e/o hydronephrosis Cr improved to 1.62 -Nephrology following, appreciate assistance -Creatinine improving -follow kidney function Hypertension -increased Norvasc to 10mg daily -continue on Hydralazine 25mg TID -Continue to monitor BP closely and adjust treatment as indicated Hypoglycemia -monitor BS -Hypoglycemic protocol Transaminitis, possible shock liver Seroquel on hold Hep profile nonreactive liver US unremarkable -avoid hepatotoxic agents = Elevation in LFTs likely fall secondary to CPK. Moderate protein calorie malnutrition -Stock Shipper consulted. -patient needs assistance with all meals -calorie count completed; added ensure per saddle maker recommendation. DVT prophylaxis Heparin sq Code Status: FULL Code Status: DC to SNF.
--- NOTE | 2017-12-25 10:28 | P.DS ---
Date of admission: 12/18/17 23:55 Primary care physician: Sandro Chaidez MD Brief History from admission: 82-year-old male who is nonverbal, with history of schizophrenia, dementia, hypertension, anxiety, recurrent urinary tract infections. Sent in by rehab facility due to depressed mental status from baseline. Patient is nonverbal, noncommunicating with bilateral contractures. Chest x-ray on admission shows left lower lobe consolidation. Urinalysis with pyuria. History is obtained from discussion with the ER physician, as well as chart review DS: Medications - Discharge Medications Prescriptions: lorazepam [Ativan] 0.5 mg PO BID #4 tab DS: Summary Hospital Course: Patient presented with sepsis, was treated with broad-spectrum IV antibiotics. Urine culture on admission growing Escherichia coli, strep viridans, blood cultures growing strep viridans. Patient improved with IV antibiotics. Infectious disease was consulted, deems bacteremia to be contamination, and recommends continued treatment with Augmentin to complete treatment course. For problem-based summary from most recent progress note, please see below. alejandroh coag neg bacteremia, 06/28 bottles -ID following, appreciate assistance. -repeat blood cultures with no growth so far. -remains afebrile; will dc IV antibiotic and start on Augmentin- stop date; - per ID. LLL PNA CXR shows left lower lobe consolidation -continue antibiotic as noted above. -Duonebs -monitor respiratory status E coli and Strept Viridans UTI Urine cx growing E coli and strept Viridans Bladder scan with low PVR -Continue antibiotic per ID. -Consulted ID as stated above = cont Augmentin as per infectious disease. Recurrent episodes of Vtach Hx of paroxysmal afib Echo EF 50% -Cardiology following, appreciate assistance. had15 beat run of wide complex tachycardia, predominantly atrial fib/flutter. Per Dr. Adamson, stopped Coreg in light of pauses, decreased dose of Amiodarone to 400mg, poor candidate for anticoagulation, daily ASA only. -back to a-fib with RVR on 12/24; HR ; 100-120's range. -continue Amiodarone and reconsult cardiology. -continuous cardiac monitoring = Appreciate cardiology assistance. Continue amiodarone. Switched to diltiazem. Acute encephalopathy, suspect secondary to bacteremia, LLL PNA and urinary tract infection CT head no acute intracranial abnormality EEG neg Patient passed swallow evaluation with recommendations for pure and thin liquids -evaluated by neurology, appreciate assistance. -MRI brain with no acute infarction Rhabdomyolysis CK trending down slowly -trend CPK -Continue with aggressive IV fluid replacement. Acute kidney injury on chronic kidney disease stage III. Creatinine 4.4. Renal US with no e/o hydronephrosis Cr improved to 1.62 -Nephrology following, appreciate assistance -Creatinine improving -follow kidney function Hypertension -increased Norvasc to 10mg daily -continue on Hydralazine 25mg TID -Continue to monitor BP closely and adjust treatment as indicated Hypoglycemia -monitor BS -Hypoglycemic protocol Transaminitis, possible shock liver Seroquel on hold Hep profile nonreactive liver US unremarkable -avoid hepatotoxic agents = Elevation in LFTs likely secondary to CPK. Moderate protein calorie malnutrition -Commercial Credit Specialist consulted. -patient needs assistance with all meals -calorie count completed; added ensure per aviation operations specialist recommendation. DVT prophylaxis Heparin sq Code Status: FULL - Time Spent with Patient Total time spent providing and/or coordinating discharge services: Greater than 30 minutes - Quality: VTE Deep Vein Thrombosis/Pulmonary Embolism Present on Admission: No Exam Vital signs: Vital Signs 12/24/17 12:00 12/24/17 16:00 12/24/17 20:00 Temperature 98.1 F 98.2 F 98.1 F Pulse Rate 98 H 96 H 74 Respiratory Rate 20 18 18 Blood Pressure 161/88 H 142/70 H 121/90 Pulse Oximetry 92 L 96 93 L 12/24/17 20:31 12/25/17 00:00 12/25/17 04:00 Temperature 97.7 F 98 F Pulse Rate 84 85 Respiratory Rate 20 20 Blood Pressure 139/82 140/83 Pulse Oximetry 94 L 98 92 L Intake & Output 12/24/17 12/25/17 12/25/17 18:59 06:59 18:59 Intake Total 1619.250 / 1619.250 120 / 120 Balance 1619.250 / 1619.250 120 / 120 Intake: IV 1619.250 / 1619.250 Sodium Chloride 23.4% Inj 38.5 1619.250 / 1619.250 MEQ In Sterile Water for Inj 1, 000 ML @ 125 mls/hr IV.CONT . Q8H5M [facility] Rx#:[id number] Oral 120 / 120 Other: # Voids 2 # Incontinent Voids 1 2 # Urine Diapers 2 Date of Last Bowel Movement 12/24/17 12/24/17 # Bowel Movements 1 # Incontinent Bowel Movements 1 Results Procedures completed during hospitalization: No invasive procedures. Labs on day of discharge: Labs from last 24 hours 12/25/17 12/24/17 03:40 11:05 Sodium 140 Potassium 4.0 Chloride 106 Carbon Dioxide 23.7 Anion Gap 10 BUN 16 13 Creatinine 1.33 H 1.25 Estimated GFR 63 L 67 L Random Glucose 86 Calcium 8.8 Total Creatine Kinase 958 H CK-MB (CK-2) 4.1 H CK-MB (CK-2) % 0.4 Preliminary micro results at discharge 12/20/17 12:52 Aerobic Blood Culture - Preliminary Blood - Peripheral No growth in 4 days Anaerobic Blood Culture - Preliminary No growth in 4 days 12/20/17 12:47 Aerobic Blood Culture - Preliminary Blood - Peripheral No growth in 4 days Anaerobic Blood Culture - Preliminary No growth in 4 days - Impressions ITS Impressions Head CT 12/18/17 19:25 CONCLUSION: 1. No acute findings in the brain. 2. Stable ischemic changes in the supratentorial brain. . Chest X-Ray 12/18/17 19:26 CONCLUSION: Left lower lobe consolidation. Abdomen/Bladder Ultrasound 12/19/17 00:00 CONCLUSION: 1. No evidence of hydronephrosis. 2. Small benign-appearing right renal cyst measuring 1.2 cm. 3. No significant changes compared to the prior study. Liver Ultrasound 12/19/17 00:00 CONCLUSION: 1. Right upper quadrant abdominal ultrasound is limited due to overlying bowel gas. 2. No acute findings identified. 3. Previously identified right renal cyst is not seen on the current study. Head MRI 12/21/17 00:00 CONCLUSION: 1. Motion degraded examination. 2. Senescent changes without definite acute abnormality. Specifically, no evidence for significant acute infarction. Discharge Plan - Discharge Disposition Patient Disposition: Discharge to SNF - Discharge Condition Condition: Fair - Discharge Order Discharge Orders: Discharge Order (Routine); Ordered 12/25/17 Ordered By: Saravanan Biggs - Discharge Details Anticipated Discharge Date: 12/25/17 - Physicians Team Primary Care Provider: Sandro Chaidez Attending Provider: Saravanan Biggs Other Providers: Jodi Rodriguez MD ; [facility] ; Elisa Wagner MD ; Roe Adamson MD ; Megan Moya MD ; Moise Cade MD
[2017-12-25 11:01] VITALS: BP 146/88; TEMP 97.1
--- NOTE | 2017-12-25 11:13 | P.PNID ---
Subjective Remarks: Patient is an 82-year-old male, he is nonverbal, lives in a shelter, with history of schizophrenia, and dementia, and recurrent UTI, brought into the hospital for decreased level of consciousness. I am unclear as to work his normal baseline mental status is. 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 Since admission he had some low-grade temps. Chest x-ray showing some left lower lobe consolidation. Urinalysis has pyuria. Patient currently has a condom cath. Urine culture is reported as growing E. coli and strep viridans. His blood culture is growing gram-positive cocci in pairs and clusters. Infectious disease consultation has been requested to assist with evaluation and treatment of his infections. Notes reviewed D/W Dr Kalyan trejo better BC - 2 different Coag neg Staph Repeat BC negative WBC down to normal UC with E coli and Viridans Strep Antibiotics: Rocephin Vancomycyin Lines: PIV Past Medical History: Anxiety Constipation Dementia Hypertension Pneumonia Schizophrenia UTI (urinary tract infection) H/O enucleation of right eyeball History of appendectomy Allergies/Adverse Reactions: Allergies No Known Allergies Allergy (Verified 12/18/17 21:14) Objective Vital Signs 12/24/17 12:00 12/24/17 16:00 12/24/17 20:00 Temperature 98.1 F 98.2 F 98.1 F Pulse Rate 98 H 96 H 74 Respiratory Rate 20 18 18 Blood Pressure 161/88 H 142/70 H 121/90 Pulse Oximetry 92 L 96 93 L 12/24/17 20:31 12/25/17 00:00 12/25/17 04:00 Temperature 97.7 F 98 F Pulse Rate 84 85 Respiratory Rate 20 20 Blood Pressure 139/82 140/83 Pulse Oximetry 94 L 98 92 L 12/25/17 08:00 Temperature 97.1 F L Pulse Rate 82 Respiratory Rate 20 Blood Pressure 146/88 H Pulse Oximetry 96 Intake & Output 12/24/17 12/25/17 12/25/17 18:59 06:59 18:59 Intake Total 1619.250 / 1619.250 120 / 120 Balance 1619.250 / 1619.250 120 / 120 Intake: IV 1619.250 / 1619.250 Sodium Chloride 23.4% Inj 38.5 1619.250 / 1619.250 MEQ In Sterile Water for Inj 1, 000 ML @ 125 mls/hr IV.CONT . Q8H5M [facility] Rx#:[id number] Oral 120 / 120 Other: # Voids 2 # Incontinent Voids 1 2 # Urine Diapers 2 Date of Last Bowel Movement 12/24/17 12/24/17 # Bowel Movements 1 # Incontinent Bowel Movements 1 12/20/17 12:52 Blood - Peripheral Aerobic Blood Culture - Final No growth in 5 days 12/20/17 12:52 Blood - Peripheral Anaerobic Blood Culture - Final No growth in 5 days 12/20/17 12:47 Blood - Peripheral Aerobic Blood Culture - Final No growth in 5 days 12/20/17 12:47 Blood - Peripheral Anaerobic Blood Culture - Final No growth in 5 days 12/18/17 19:43 Blood - Peripheral Aerobic Blood Culture - Final Staphylococcus epidermidis 12/18/17 19:43 Blood - Peripheral Anaerobic Blood Culture - Final Staphylococcus coag negative 12/18/17 19:35 Blood - Peripheral Aerobic Blood Culture - Final Staphylococcus epidermidis 12/18/17 19:35 Blood - Peripheral Anaerobic Blood Culture - Final Staphylococcus coag negative Lab - Chemistry Results 12/23/17 12/23/17 12/24/17 09:58 14:55 03:32 Sodium 142 Potassium 3.6 Chloride 105 Carbon Dioxide 26.7 Anion Gap 10 BUN 18 15 Creatinine 1.29 1.22 Estimated GFR 65 L 69 L Random Glucose 89 Calcium 8.8 Total Creatine Kinase 1382 H CK-MB (CK-2) 3.4 3.5 CK-MB (CK-2) % 0.2 0.3 12/24/17 12/25/17 11:05 03:40 Sodium 140 Potassium 4.0 Chloride 106 Carbon Dioxide 23.7 Anion Gap 10 BUN 13 16 Creatinine 1.25 1.33 H Estimated GFR 67 L 63 L Random Glucose 86 Calcium 8.8 Total Creatine Kinase 958 H CK-MB (CK-2) 4.1 H CK-MB (CK-2) % 0.4 Imaging: ITS Impressions Head CT 12/18/17 19:25 CONCLUSION: 1. No acute findings in the brain. 2. Stable ischemic changes in the supratentorial brain. . Chest X-Ray 12/18/17 19:26 CONCLUSION: Left lower lobe consolidation. Abdomen/Bladder Ultrasound 12/19/17 00:00 CONCLUSION: 1. No evidence of hydronephrosis. 2. Small benign-appearing right renal cyst measuring 1.2 cm. 3. No significant changes compared to the prior study. Liver Ultrasound 12/19/17 00:00 CONCLUSION: 1. Right upper quadrant abdominal ultrasound is limited due to overlying bowel gas. 2. No acute findings identified. 3. Previously identified right renal cyst is not seen on the current study. Head MRI 12/21/17 00:00 CONCLUSION: 1. Motion degraded examination. 2. Senescent changes without definite acute abnormality. Specifically, no evidence for significant acute infarction. Physical Exam: GENERAL: awake and focusing, not following any commands, has contractures of his BUE and BLE, not in respiratory distress. SKIN: Cool and dry. No generalized rash, no ecchymoses and no evidence of embolic lesions. HEAD: Atraumatic. Normocephalic. No temporal wasting, or tenderness. EYES: [place] conjunctiva. No petechia or hemorrhage. Sunken in R orbit, enucleation?. No scleral icterus. No injection or drainage. EARS, NOSE AND THROAT: Nose without bleeding or purulent nasal discharge. Mucous membranes pink and moist. NECK: Trachea midline. Stiff neck, whole body rigid. HEART: Regular rate and rhythm, no murmur heard. RESPIRATORY: Clear to auscultation. Decreased breath sounds at bases. ABDOMEN: Flat firm, bowel sounds present and normoactive, not tender. EXTREMITIES: No clubbing, cyanosis. BUE and BLE spastic and contracted. NEUROLOGICAL: Awake , not following. BUE and BLE contracted. PSYCHIATRIC: Unable to assess : Has condom cath in place. LINE: No evidence of infection Assessment and Plan - Plan Impression UTI, no garcia - C/S E coli and Strep viridans Bacteremia, with 2 different Coag Neg Staph C/W contamant Renal insufficiency due to sepsis, no obstruction seen on US Hx schizophrenia and dementia Chronically bedridden Recommendation Doing well OK to D/C and give 14 days total Abx Give Augmentin on D/C D/W Dr Biggs
[2017-12-25 11:14] VITALS: O2SAT 95
[2017-12-25 14:45] VITALS: PULSE 87
[2017-12-26] MEDS ORDERED: Pharmacy Ordered Lab Info OTHER ONE (14:45)
== END 2017-12-25 11:26 ==
LOC: NEPC 18:45 → NEDA 23:55 → NEPHCDU 12-19 00:51 → N04 12-21 16:37
PROVIDERS: ADMIT Internal Medicine; ATTEND Internal Medicine